=== PATIENT | female | born 1980 | race Caucasian/White ===

== ENCOUNTER 2016-06-18 13:48 | Emergency (ER) | payer MEDICAID ==
[~2016-06-18 13:48] MED LIST: ACET50TA PO; AMBI10TA OR; BISA10SU2; CALA180T; CALA180T OR; CARBITROL; CIPR500T19 OR; DEPA250T32 PO; DIAMOX; DILA2TAB; FLAG500T OR; FLUO10TA2; FLUO10TA2 OR; GLYB25TA PO; IMIT6INJ; IMIT6INJ SC; IMIT6KIT2 SC; MAGNESIUM OXIDE; MILKSUS OR; PERCOCET PO; PRIL20CA; PROV200T5; PROZ10CA; QUET30TA OR; RIBO100C; SENN8.6T14; SENO8.6T5; TEGRETOL; TEGRETOL XR; TOPA50TA7 PO; TOPI50TA OR; TRAZO50TA PO; VERA180T9 OR; VERA18TASA PO; VIST25CA PO; VITA100T; ZOLO100T PO; ZOLPIDEM TARTRATE; [UNRECOGNIZED DRUG - OTHER]
[2016-06-18] MEDS ORDERED: diphenhydrAMINE INJ 50MG/ML VIAL (J1200) As Ordered ONE (15:11)
[2016-06-18] MEDS ORDERED: ONDANSETRON 4MG/2ML VIAL (J2405) As Ordered ONE (15:11)
[2016-06-18] MEDS ORDERED: MORPHINE 2 MG/ML 1ML SYRINGE As Ordered ONE ×2 (15:11→16:05)
[2016-06-18] MEDS ORDERED: KETOROLAC 30 MG/ML VIAL (J1885) As Ordered ONE (15:11)
--- NOTE | 2016-06-18 16:48 | EDDOCDS ---
Nurse's Notes [facility] Name: Dunia Rodriges Age: 35 yrs Sex: Female : 1980 Arrival Date: 06/18/2016 Time: 13:48 Bed TR1 Private MD: LIGIA HAUSER Diagnosis: Migraine without aura, not intractable Presentation: 06/18 14:00 Presenting complaint: Patient states: migraine for 3 days that i cant rid of with my srm imitrex. no other symptoms. This patient has no additional risk factors. Adult Sepsis Screening: The patient does not have new or worsening altered mentation. Patient's respiratory rate is less than 22. Systolic blood pressure is greater than 100. Patient has a qSOFA score of 0- Negative Sepsis Screen. Suicide/Homicide risk assessment- the patient denies having any suicidal and/or homicidal ideations and does not present with any other emotional, behavioral or mental health complaints. Status: Patient is not a nutritional services host or dependent. Transition of care: patient was not received from another setting of care. 14:00 Acuity: TONY Level 4 [facility] 14:00 Method Of Arrival: Walkin/Carried/Asstd [facility] Triage Assessment: 14:02 Headache History: This headache is like all previous headaches. General: Appears in no srm apparent distress, Behavior is appropriate for age, cooperative. Pain: Pain currently is 10 out of 10 on a pain scale. Pain began 2-3 days ago Also complains of no other associated symptoms. HIV screening NA for this visit Offered previously. The patient is triaged at the bedside. See Assessment in Nurses Notes section of ED record. Neurological: No deficits noted. 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 Depakote 250 mg Oral TbEC once daily 2. Imitrex 6 mg/0.5 mL Sub-Q pnij as needed (Last dose: 06/17/2016) 3. Seroquel 50 mg Oral tab 1 tab daily 4. Topamax 25 mg Oral tab 2 times per day 5. Ventolin Rotahaler/Rotacaps Inhl 200 mcg four times a day 6. verapamil 180 mg Oral TbER once daily 7. Zoloft 25 mg oral tab once daily - PMHx: Migraine Headaches; Depression; - PSHx: Cholecystectomy; right ankle surgery; - Social history: Smoking status: Patient states was never smoker of tobacco. No barriers to communication noted, The patient speaks fluent Croatian, Speaks appropriately for age. - Family history: Not pertinent. - : The pt / caregiver states he / she is not on anticoagulants. Home medication list is obtained from the patient. - Exposure Risk Screening:: None identified. Screenin:40 Screening information is obtained from the patient. Fall risk: No risks identified. kc3 Assistance ADL's: requires no assistance with activities of daily living. Abuse/DV Screen: The patient / caregiver reports he/she is: not in a situation that causes fear, pain or injury. Nutritional screening: No deficits noted. Advance Directives: Currently, there is no health care proxy. home support is adequate. Assessment: 14:42 General: pt states usual headache, unrelieved by Imitrex. Pain: Location: head. ttb Neurological: Level of Consciousness is awake, alert, Gait is steady, Speech is normal, Facial symmetry appears normal. Neurological: Reports headache photophobia. Cardiovascular: Chest pain is denied. Respiratory: No deficits noted. Airway is patent Denies cough, shortness of breath. Derm: Skin is normal. 15:16 Adult Sepsis Screening: The patient does not have new or worsening altered mentation. dsf Patient's respiratory rate is less than 22. Systolic blood pressure is greater than 100. Patient has a qSOFA score of 0- Negative Sepsis Screen. General: Appears in no apparent distress, uncomfortable, Behavior is appropriate for age, cooperative. Pain: Location: right catholic and left catholic Pain currently is 10 out of 10 on a pain scale. Quality of pain is described as sharp. Neurological: Level of Consciousness is awake, alert. Cardiovascular: Capillary refill < 3 seconds. Respiratory: Airway is patent Respiratory effort is even, unlabored, Respiratory pattern is regular, symmetrical. Derm: Skin is pink, warm & dry. 16:00 General: Appears in no apparent distress, comfortable. Pain: Location: face. kc3 Neurological: Level of Consciousness is awake, alert, obeys commands. Respiratory: No deficits noted. Derm: No deficits noted. 16:39 General: Appears in no apparent distress, comfortable, Behavior is appropriate for age, kc3 cooperative. Pain: Location: face. Neurological: Level of Consciousness is awake, alert, obeys commands. Cardiovascular: Capillary refill < 3 seconds. Respiratory: Respiratory effort is even, unlabored. Derm: Skin is pink, warm & dry. Vital Signs: 13:49 BP 156 / 76; Pulse 88; Resp 18 S; Temp 97.5; Pulse Ox 99% on R/A; Weight 136.08 kg (R); dd6 Height 5 ft. 7 in. (170.18 cm) (R); 16:12 BP 130 / 79; Pulse 75; Resp 18; Temp 97.9(O); Pulse Ox 100% on R/A; Pain 6/10; kc3 16:38 BP 138 / 86; Pulse 80; Resp 18; Temp 97.7(O); Pulse Ox 99% on R/A; kc3 16:39 BP 138 / 86; Pulse 80; Resp 18; Pulse Ox 99% on R/A; Pain 0/10; kc3 13:49 Body Mass Index 46.99 (136.08 kg, 170.18 cm) dd6 Vitals: 13:49 Log In Time: June 18, 2016 at 13:47. dd6 ED Course: 13:49 Patient visited by Juan Carlos Moctezuma PCA. dd6 13:49 LIGIA HAUSER is Private Physician. dd6 13:49 Patient moved to Waiting dd6 13:51 Patient moved to Pre RCE dd6 14:01 Triage Initiated srm 14:41 Patient moved to Triage 1 ttb 14:42 Esther Scott PA-C is [facility]. dt4 14:42 Parisa King MD is Attending Physician. dt4 14:42 Patient visited by Esther Scott PA-C. dt4 14:43 Patient visited by Denisse Woods RN. ttb 15:02 Patient moved to I6 srm 15:03 [facility] Payment Agreement was scanned into [employer] and attached to record. pm4 15:17 Patient visited by Linda Schuster RN. dsf 15:21 Inserted saline lock: 20 gauge in right antecubital area The patient tolerated the mlb1 procedure well. 16:02 Patient visited by Esther Scott PA-C. dt4 16:30 Patient visited by Esther Scott PA-C. dt4 16:41 The patient / caregiver is instructed regarding the plan of care and ED course. kc3 16:41 Discontinued IV lock intact, bleeding controlled, pressure dressing applied, No kc3 redness/swelling at site. No procedures done that require assistance. 16:44 Patient moved to [address] Administered Medications: 15:29 Drug: diphenhydrAMINE 25 mg [diphenhydramine 50 mg/mL injection solution (0.5 mL)] kc3 Route: IVP; Site: right antecubital; 16:14 Follow up: Response: No Adverse Reaction kc3 15:29 Drug: morphine 2 mg [morphine 2 mg/mL intravenous cartridge (1 mL)] Route: IVP; Site: kc3 right antecubital; 16:13 Follow up: Response: No Adverse Reaction kc3 15:29 Drug: ketorolac 30 mg [ketorolac 30 mg/mL (1 mL) injection solution (1 mL)] Route: IVP; kc3 Site: right antecubital; 16:13 Follow up: Response: No Adverse Reaction kc3 15:29 Drug: Ondansetron 4 mg [ondansetron HCl 2 mg/mL intravenous solution (2 mL)] Route: kc3 IVP; Site: right antecubital; 16:13 Follow up: Response: No Adverse Reaction kc3 16:13 Drug: morphine 2 mg [morphine 2 mg/mL intravenous cartridge (1 mL)] Route: IVP; Site: kc3 right antecubital; 16:39 Follow up: BP 138 / 86; Pulse 80 bpm; Resp 18 bpm; Pulse Ox 99% RA; Pain 0/10 Adult kc3 Order Results: There are currently no results for this order. Outcome: 16:31 Discharge ordered by Provider. dt4 16:41 Discharge Assessment: Patient awake, alert and oriented x 3. No cognitive and/or kc3 functional deficits noted. Patient verbalized understanding of disposition instructions. patient administered narcotics - yes. Pt provided with safe discharge. The following High Risk Discharge criteria are identified: None. Discharged to home. Condition: stable. Discharge instructions given to patient, Instructed on discharge instructions, follow up and referral plans. Demonstrated understanding of instructions, Pt was receptive of discharge instructions/ teaching. No special radiology studies were completed. Property :Personal belongings accompany Pt. 16:46 Patient left the ED. kc3 Signatures: Madeleine Cha RN RN Leandro Thompson, RN RN mlb1 Juan Carlos Moctezuma, WAREHOUSE PRODUCTION WORKER WAREHOUSE PRODUCTION WORKER dd6 Linda Schuster,RN RN Denisse Whittaker, RN RN Esther Chavez, NITO PACatalina dt4 Julia Gurrola,RN RN kc3 Jose Antonio Lee, Reg Reg pm4 MTDD
--- NOTE | 2016-06-18 16:48 | EDDOCDS ---
Physician Documentation [facility] Name: Dunia Rodriges Age: 35 yrs Sex: Female : 1980 Arrival Date: 06/18/2016 Time: 13:48 Bed TR1 Private MD: LIGIA HAUSER Disposition: 06/18/16 16:31 Discharged to Home/Self Care. Impression: Migraine without aura, not intractable. - Condition is Stable. - Discharge Instructions: Migraine Headache. - Medication Reconciliation, Local Pharmacy Hours form. - Follow up: Emergency Department; When: As needed; Reason: Worsening of conditions. Follow up: Private Physician; When: 2 - 3 days; Reason: Wound/Symptom Recheck, Recheck today's complaints, Continuance of care. - Problem is new. - Symptoms have improved. Historical: - Allergies: Aspirin (Rash); - Home Meds: 1. Depakote 250 mg Oral TbEC once daily 2. Imitrex 6 mg/0.5 mL Sub-Q pnij as needed (Last dose: 06/17/2016) 3. Seroquel 50 mg Oral tab 1 tab daily 4. Topamax 25 mg Oral tab 2 times per day 5. Ventolin Rotahaler/Rotacaps Inhl 200 mcg four times a day 6. verapamil 180 mg Oral TbER once daily 7. Zoloft 25 mg oral tab once daily - PMHx: Migraine Headaches; Depression; - PSHx: Cholecystectomy; right ankle surgery; - Social history: Smoking status: Patient states was never smoker of tobacco. No barriers to communication noted, The patient speaks fluent Tuvaluan, Speaks appropriately for age. - Family history: Not pertinent. - : The pt / caregiver states he / she is not on anticoagulants. Home medication list is obtained from the patient. - Exposure Risk Screening:: None identified. 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 7 in. (170.18 cm) (R); 16:12 BP 130 / 79; Pulse 75; Resp 18; Temp 97.9(O); Pulse Ox 100% on R/A; Pain 6/10; kc3 16:38 BP 138 / 86; Pulse 80; Resp 18; Temp 97.7(O); Pulse Ox 99% on R/A; kc3 16:39 BP 138 / 86; Pulse 80; Resp 18; Pulse Ox 99% on R/A; Pain 0/10; kc3 13:49 Body Mass Index 46.99 (136.08 kg, 170.18 cm) dd6 MDM: 14:55 Financial registration complete. pm4 15:03 [facility] Payment Agreement was scanned into [employer] and attached to record. pm4 15:03 IV Saline Lock ordered. dt4 15:03 diphenhydrAMINE 25 mg IVP once ordered. dt4 15:04 morphine 2 mg IVP once ordered. dt4 15:04 ketorolac 30 mg IVP once ordered. dt4 15:04 Ondansetron 4 mg IVP once ordered. dt4 16:03 morphine 2 mg IVP once ordered. dt4 Administered Medications: 15:29 Drug: diphenhydrAMINE 25 mg [diphenhydramine 50 mg/mL injection solution (0.5 mL)] kc3 Route: IVP; Site: right antecubital; 16:14 Follow up: Response: No Adverse Reaction kc3 15:29 Drug: morphine 2 mg [morphine 2 mg/mL intravenous cartridge (1 mL)] Route: IVP; Site: kc3 right antecubital; 16:13 Follow up: Response: No Adverse Reaction kc3 15:29 Drug: ketorolac 30 mg [ketorolac 30 mg/mL (1 mL) injection solution (1 mL)] Route: IVP; kc3 Site: right antecubital; 16:13 Follow up: Response: No Adverse Reaction kc3 15:29 Drug: Ondansetron 4 mg [ondansetron HCl 2 mg/mL intravenous solution (2 mL)] Route: kc3 IVP; Site: right antecubital; 16:13 Follow up: Response: No Adverse Reaction kc3 16:13 Drug: morphine 2 mg [morphine 2 mg/mL intravenous cartridge (1 mL)] Route: IVP; Site: kc3 right antecubital; 16:39 Follow up: BP 138 / 86; Pulse 80 bpm; Resp 18 bpm; Pulse Ox 99% RA; Pain 0/10 Adult kc3 Signatures: Starla, Madeleine, RN RN srm Denisse Woods RN RN ttb Esther Scott PA-C PAChristianoC dt4 Julia Gurrola RN RN kc3 Jose Antonio Lee, Reg Reg pm4 The chart was reviewed and I authenticate all verbal orders and agree with the evaluation and treatment provided.Attachments: 15:03 [facility] Payment Agreement pm4 MTDD
--- NOTE | 2016-06-20 17:47 | EDDOCDS ---
Physician Documentation [facility] Name: Dunia Rodriges Age: 35 yrs Sex: Female : 1980 Arrival Date: 06/18/2016 Time: 13:48 Bed TR1 Private MD: LIGIA HAUSER Disposition: 06/18/16 16:31 Discharged to Home/Self Care. Impression: Migraine without aura, not intractable. - Condition is Stable. - Discharge Instructions: Migraine Headache. - Medication Reconciliation, Local Pharmacy Hours form. - Follow up: Emergency Department; When: As needed; Reason: Worsening of conditions. Follow up: Private Physician; When: 2 - 3 days; Reason: Wound/Symptom Recheck, Recheck today's complaints, Continuance of care. - Problem is new. - Symptoms have improved. Historical: - Allergies: Aspirin (Rash); - Home Meds: 1. Depakote 250 mg Oral TbEC once daily 2. Imitrex 6 mg/0.5 mL Sub-Q pnij as needed (Last dose: 06/17/2016) 3. Seroquel 50 mg Oral tab 1 tab daily 4. Topamax 25 mg Oral tab 2 times per day 5. Ventolin Rotahaler/Rotacaps Inhl 200 mcg four times a day 6. verapamil 180 mg Oral TbER once daily 7. Zoloft 25 mg oral tab once daily - PMHx: Migraine Headaches; Depression; - PSHx: Cholecystectomy; right ankle surgery; - Social history: Smoking status: Patient states was never smoker of tobacco. No barriers to communication noted, The patient speaks fluent Montserratian, Speaks appropriately for age. - Family history: Not pertinent. - : The pt / caregiver states he / she is not on anticoagulants. Home medication list is obtained from the patient. - Exposure Risk Screening:: None identified. 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 7 in. (170.18 cm) (R); 16:12 BP 130 / 79; Pulse 75; Resp 18; Temp 97.9(O); Pulse Ox 100% on R/A; Pain 6/10; kc3 16:38 BP 138 / 86; Pulse 80; Resp 18; Temp 97.7(O); Pulse Ox 99% on R/A; kc3 16:39 BP 138 / 86; Pulse 80; Resp 18; Pulse Ox 99% on R/A; Pain 0/10; kc3 13:49 Body Mass Index 46.99 (136.08 kg, 170.18 cm) dd6 MDM: 14:55 Financial registration complete. pm4 15:03 [facility] Payment Agreement was scanned into [employer] and attached to record. pm4 15:03 IV Saline Lock ordered. dt4 15:03 diphenhydrAMINE 25 mg IVP once ordered. dt4 15:04 morphine 2 mg IVP once ordered. dt4 15:04 ketorolac 30 mg IVP once ordered. dt4 15:04 Ondansetron 4 mg IVP once ordered. dt4 16:03 morphine 2 mg IVP once ordered. dt4 01 08:33 T-Sheet-- Draft Copy was scanned into [employer] and attached to record. gb Administered Medications: 06/18 15:29 Drug: diphenhydrAMINE 25 mg [diphenhydramine 50 mg/mL injection solution (0.5 mL)] kc3 Route: IVP; Site: right antecubital; 16:14 Follow up: Response: No Adverse Reaction kc3 15:29 Drug: morphine 2 mg [morphine 2 mg/mL intravenous cartridge (1 mL)] Route: IVP; Site: kc3 right antecubital; 16:13 Follow up: Response: No Adverse Reaction kc3 15:29 Drug: ketorolac 30 mg [ketorolac 30 mg/mL (1 mL) injection solution (1 mL)] Route: IVP; kc3 Site: right antecubital; 16:13 Follow up: Response: No Adverse Reaction kc3 15:29 Drug: Ondansetron 4 mg [ondansetron HCl 2 mg/mL intravenous solution (2 mL)] Route: kc3 IVP; Site: right antecubital; 16:13 Follow up: Response: No Adverse Reaction kc3 16:13 Drug: morphine 2 mg [morphine 2 mg/mL intravenous cartridge (1 mL)] Route: IVP; Site: kc3 right antecubital; 16:39 Follow up: BP 138 / 86; Pulse 80 bpm; Resp 18 bpm; Pulse Ox 99% RA; Pain 0/10 Adult kc3 Signatures: Madeleine Cha, RN RN srm Josie Domínguez, Reg Reg gb Denisse Woods RN RN ttb Esther Scott, NITO PACatalina dt4 Julia Gurrola RN RN kc3 Jose Antonio Lee, Reg Reg pm4 The chart was reviewed and I authenticate all verbal orders and agree with the evaluation and treatment provided.Attachments: 15:03 [facility] Payment Agreement pm4 06/20 08:33 T-Sheet-- Draft Copy gb Chart Complete MTDD
--- NOTE | 2016-06-20 17:47 | EDDOCDS ---
Physician Documentation [facility] Name: Dunia Rodriges Age: 35 yrs Sex: Female : 1980 Arrival Date: 06/18/2016 Time: 13:48 Bed TR1 Private MD: LIGIA HAUSER Disposition: 06/18/16 16:31 Discharged to Home/Self Care. Impression: Migraine without aura, not intractable. - Condition is Stable. - Discharge Instructions: Migraine Headache. - Medication Reconciliation, Local Pharmacy Hours form. - Follow up: Emergency Department; When: As needed; Reason: Worsening of conditions. Follow up: Private Physician; When: 2 - 3 days; Reason: Wound/Symptom Recheck, Recheck today's complaints, Continuance of care. - Problem is new. - Symptoms have improved. Historical: - Allergies: Aspirin (Rash); - Home Meds: 1. Depakote 250 mg Oral TbEC once daily 2. Imitrex 6 mg/0.5 mL Sub-Q pnij as needed (Last dose: 06/17/2016) 3. Seroquel 50 mg Oral tab 1 tab daily 4. Topamax 25 mg Oral tab 2 times per day 5. Ventolin Rotahaler/Rotacaps Inhl 200 mcg four times a day 6. verapamil 180 mg Oral TbER once daily 7. Zoloft 25 mg oral tab once daily - PMHx: Migraine Headaches; Depression; - PSHx: Cholecystectomy; right ankle surgery; - Social history: Smoking status: Patient states was never smoker of tobacco. No barriers to communication noted, The patient speaks fluent Sri Lankan, Speaks appropriately for age. - Family history: Not pertinent. - : The pt / caregiver states he / she is not on anticoagulants. Home medication list is obtained from the patient. - Exposure Risk Screening:: None identified. 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 7 in. (170.18 cm) (R); 16:12 BP 130 / 79; Pulse 75; Resp 18; Temp 97.9(O); Pulse Ox 100% on R/A; Pain 6/10; kc3 16:38 BP 138 / 86; Pulse 80; Resp 18; Temp 97.7(O); Pulse Ox 99% on R/A; kc3 16:39 BP 138 / 86; Pulse 80; Resp 18; Pulse Ox 99% on R/A; Pain 0/10; kc3 13:49 Body Mass Index 46.99 (136.08 kg, 170.18 cm) dd6 MDM: 14:55 Financial registration complete. pm4 15:03 [facility] Payment Agreement was scanned into [employer] and attached to record. pm4 15:03 IV Saline Lock ordered. dt4 15:03 diphenhydrAMINE 25 mg IVP once ordered. dt4 15:04 morphine 2 mg IVP once ordered. dt4 15:04 ketorolac 30 mg IVP once ordered. dt4 15:04 Ondansetron 4 mg IVP once ordered. dt4 16:03 morphine 2 mg IVP once ordered. dt4 01 08:33 T-Sheet-- Draft Copy was scanned into [employer] and attached to record. gb Administered Medications: 06/18 15:29 Drug: diphenhydrAMINE 25 mg [diphenhydramine 50 mg/mL injection solution (0.5 mL)] kc3 Route: IVP; Site: right antecubital; 16:14 Follow up: Response: No Adverse Reaction kc3 15:29 Drug: morphine 2 mg [morphine 2 mg/mL intravenous cartridge (1 mL)] Route: IVP; Site: kc3 right antecubital; 16:13 Follow up: Response: No Adverse Reaction kc3 15:29 Drug: ketorolac 30 mg [ketorolac 30 mg/mL (1 mL) injection solution (1 mL)] Route: IVP; kc3 Site: right antecubital; 16:13 Follow up: Response: No Adverse Reaction kc3 15:29 Drug: Ondansetron 4 mg [ondansetron HCl 2 mg/mL intravenous solution (2 mL)] Route: kc3 IVP; Site: right antecubital; 16:13 Follow up: Response: No Adverse Reaction kc3 16:13 Drug: morphine 2 mg [morphine 2 mg/mL intravenous cartridge (1 mL)] Route: IVP; Site: kc3 right antecubital; 16:39 Follow up: BP 138 / 86; Pulse 80 bpm; Resp 18 bpm; Pulse Ox 99% RA; Pain 0/10 Adult kc3 Signatures: Madeleine Cha, RN RN srm Josie Domínguez, Reg Reg gb Denisse Woods RN RN ttb Esther Scott, NITO PACatalina dt4 Julia Gurrola RN RN kc3 Jose Antonio Lee, Reg Reg pm4 The chart was reviewed and I authenticate all verbal orders and agree with the evaluation and treatment provided.Attachments: 15:03 [facility] Payment Agreement pm4 06/20 08:33 T-Sheet-- Draft Copy gb Chart Complete MTDD
--- NOTE | 2016-06-20 17:47 | EDDOCDS ---
Nurse's Notes [facility] Name: Dunia Rodriges Age: 35 yrs Sex: Female : 1980 Arrival Date: 06/18/2016 Time: 13:48 Bed TR1 Private MD: LIGIA HAUSER Diagnosis: Migraine without aura, not intractable Presentation: 06/18 14:00 Presenting complaint: Patient states: migraine for 3 days that i cant rid of with my srm imitrex. no other symptoms. This patient has no additional risk factors. Adult Sepsis Screening: The patient does not have new or worsening altered mentation. Patient's respiratory rate is less than 22. Systolic blood pressure is greater than 100. Patient has a qSOFA score of 0- Negative Sepsis Screen. Suicide/Homicide risk assessment- the patient denies having any suicidal and/or homicidal ideations and does not present with any other emotional, behavioral or mental health complaints. Status: Patient is not a rehab services aide or dependent. Transition of care: patient was not received from another setting of care. 14:00 Acuity: TONY Level 4 [facility] 14:00 Method Of Arrival: Walkin/Carried/Asstd [facility] Triage Assessment: 14:02 Headache History: This headache is like all previous headaches. General: Appears in no srm apparent distress, Behavior is appropriate for age, cooperative. Pain: Pain currently is 10 out of 10 on a pain scale. Pain began 2-3 days ago Also complains of no other associated symptoms. HIV screening NA for this visit Offered previously. The patient is triaged at the bedside. See Assessment in Nurses Notes section of ED record. Neurological: No deficits noted. CHUTE TAPPER: 14:02 LMP 06/18/2016 srm Historical: - Allergies: Aspirin (Rash); - Home Meds: 1. Depakote 250 mg Oral TbEC once daily 2. Imitrex 6 mg/0.5 mL Sub-Q pnij as needed (Last dose: 06/17/2016) 3. Seroquel 50 mg Oral tab 1 tab daily 4. Topamax 25 mg Oral tab 2 times per day 5. Ventolin Rotahaler/Rotacaps Inhl 200 mcg four times a day 6. verapamil 180 mg Oral TbER once daily 7. Zoloft 25 mg oral tab once daily - PMHx: Migraine Headaches; Depression; - PSHx: Cholecystectomy; right ankle surgery; - Social history: Smoking status: Patient states was never smoker of tobacco. No barriers to communication noted, The patient speaks fluent Tajik, Speaks appropriately for age. - Family history: Not pertinent. - : The pt / caregiver states he / she is not on anticoagulants. Home medication list is obtained from the patient. - Exposure Risk Screening:: None identified. Screenin:40 Screening information is obtained from the patient. Fall risk: No risks identified. kc3 Assistance ADL's: requires no assistance with activities of daily living. Abuse/DV Screen: The patient / caregiver reports he/she is: not in a situation that causes fear, pain or injury. Nutritional screening: No deficits noted. Advance Directives: Currently, there is no health care proxy. home support is adequate. Assessment: 14:42 General: pt states usual headache, unrelieved by Imitrex. Pain: Location: head. ttb Neurological: Level of Consciousness is awake, alert, Gait is steady, Speech is normal, Facial symmetry appears normal. Neurological: Reports headache photophobia. Cardiovascular: Chest pain is denied. Respiratory: No deficits noted. Airway is patent Denies cough, shortness of breath. Derm: Skin is normal. 15:16 Adult Sepsis Screening: The patient does not have new or worsening altered mentation. dsf Patient's respiratory rate is less than 22. Systolic blood pressure is greater than 100. Patient has a qSOFA score of 0- Negative Sepsis Screen. General: Appears in no apparent distress, uncomfortable, Behavior is appropriate for age, cooperative. Pain: Location: right anabaptist and left anabaptist Pain currently is 10 out of 10 on a pain scale. Quality of pain is described as sharp. Neurological: Level of Consciousness is awake, alert. Cardiovascular: Capillary refill < 3 seconds. Respiratory: Airway is patent Respiratory effort is even, unlabored, Respiratory pattern is regular, symmetrical. Derm: Skin is pink, warm & dry. 16:00 General: Appears in no apparent distress, comfortable. Pain: Location: face. kc3 Neurological: Level of Consciousness is awake, alert, obeys commands. Respiratory: No deficits noted. Derm: No deficits noted. 16:39 General: Appears in no apparent distress, comfortable, Behavior is appropriate for age, kc3 cooperative. Pain: Location: face. Neurological: Level of Consciousness is awake, alert, obeys commands. Cardiovascular: Capillary refill < 3 seconds. Respiratory: Respiratory effort is even, unlabored. Derm: Skin is pink, warm & dry. Vital Signs: 13:49 BP 156 / 76; Pulse 88; Resp 18 S; Temp 97.5; Pulse Ox 99% on R/A; Weight 136.08 kg (R); dd6 Height 5 ft. 7 in. (170.18 cm) (R); 16:12 BP 130 / 79; Pulse 75; Resp 18; Temp 97.9(O); Pulse Ox 100% on R/A; Pain 6/10; kc3 16:38 BP 138 / 86; Pulse 80; Resp 18; Temp 97.7(O); Pulse Ox 99% on R/A; kc3 16:39 BP 138 / 86; Pulse 80; Resp 18; Pulse Ox 99% on R/A; Pain 0/10; kc3 13:49 Body Mass Index 46.99 (136.08 kg, 170.18 cm) dd6 Vitals: 13:49 Log In Time: June 18, 2016 at 13:47. dd6 ED Course: 13:49 Patient visited by Juan Carlos Moctezuma PCA. dd6 13:49 LIGIA HAUSER is Private Physician. dd6 13:49 Patient moved to Waiting dd6 13:51 Patient moved to Pre RCE dd6 14:01 Triage Initiated srm 14:41 Patient moved to Triage 1 ttb 14:42 Esther Scott PA-C is [facility]. dt4 14:42 Parisa King MD is Attending Physician. dt4 14:42 Patient visited by Esther Scott PA-C. dt4 14:43 Patient visited by Denisse Woods RN. ttb 15:02 Patient moved to I6 srm 15:03 [facility] Payment Agreement was scanned into [employer] and attached to record. pm4 15:17 Patient visited by Linda Schuster RN. dsf 15:21 Inserted saline lock: 20 gauge in right antecubital area The patient tolerated the mlb1 procedure well. 16:02 Patient visited by Esther Scott PA-C. dt4 16:30 Patient visited by Esther Scott PA-C. dt4 16:41 The patient / caregiver is instructed regarding the plan of care and ED course. kc3 16:41 Discontinued IV lock intact, bleeding controlled, pressure dressing applied, No kc3 redness/swelling at site. No procedures done that require assistance. 16:44 Patient moved to [address] 06/20 08:33 T-Sheet-- Draft Copy was scanned into [employer] and attached to record. gb Administered Medications: 06/18 15:29 Drug: diphenhydrAMINE 25 mg [diphenhydramine 50 mg/mL injection solution (0.5 mL)] kc3 Route: IVP; Site: right antecubital; 16:14 Follow up: Response: No Adverse Reaction kc3 15:29 Drug: morphine 2 mg [morphine 2 mg/mL intravenous cartridge (1 mL)] Route: IVP; Site: kc3 right antecubital; 16:13 Follow up: Response: No Adverse Reaction kc3 15:29 Drug: ketorolac 30 mg [ketorolac 30 mg/mL (1 mL) injection solution (1 mL)] Route: IVP; kc3 Site: right antecubital; 16:13 Follow up: Response: No Adverse Reaction kc3 15:29 Drug: Ondansetron 4 mg [ondansetron HCl 2 mg/mL intravenous solution (2 mL)] Route: kc3 IVP; Site: right antecubital; 16:13 Follow up: Response: No Adverse Reaction kc3 16:13 Drug: morphine 2 mg [morphine 2 mg/mL intravenous cartridge (1 mL)] Route: IVP; Site: kc3 right antecubital; 16:39 Follow up: BP 138 / 86; Pulse 80 bpm; Resp 18 bpm; Pulse Ox 99% RA; Pain 0/10 Adult kc3 Order Results: There are currently no results for this order. Outcome: 16:31 Discharge ordered by Provider. dt4 16:41 Discharge Assessment: Patient awake, alert and oriented x 3. No cognitive and/or kc3 functional deficits noted. Patient verbalized understanding of disposition instructions. patient administered narcotics - yes. Pt provided with safe discharge. The following High Risk Discharge criteria are identified: None. Discharged to home. Condition: stable. Discharge instructions given to patient, Instructed on discharge instructions, follow up and referral plans. Demonstrated understanding of instructions, Pt was receptive of discharge instructions/ teaching. No special radiology studies were completed. Property :Personal belongings accompany Pt. 16:46 Patient left the ED. kc3 Signatures: Madeleine Cha, RN RN srm Josie Domínguez, Reg Reg gb Leandro Whitney, RN RN mlb1 Juan Carlos Moctezuma, GIS ADMINISTRATOR GIS ADMINISTRATOR dd6 Linda Schuster,RN RN Denisse Whittaker, RN RN ttb Esther Scott, PA-C PA-C dt4 Julia Gurrola,RN RN kc3 Jose Antonio Lee, Reg Reg pm4 Chart Complete MTDD
== END 2016-06-18 16:46 | disposition home or self-care (01) ==
LOC: M ED 13:48
DX: G43.909 Migraine, unspecified, not intractable, without status migrainosus (principal); F32.9 Major depressive disorder, single episode, unspecified; Z79.899 Other long term (current) drug therapy; Z88.6 Allergy status to analgesic agent
CPT/HCPCS: 96374; 96375; 96376; 99283; J1200; J1885; J2405

== ENCOUNTER → 2016-07-30 | Outpatient (REF) | payer MEDICAID | LOC: M LAB REF 12:27 | PROVIDERS: ATTEND Physician Assistant | DX: J11.1 Influenza due to unidentified influenza virus with other respiratory manifestations (principal) ==

== ENCOUNTER 2016-10-17 09:16 | Emergency (ER) | payer MEDICAID ==
[~2016-10-17] VITALS: Ht 170.2 cm; Wt 136.1 kg
[2016-10-17] MEDS ORDERED: diphenhydrAMINE INJ 50MG/ML VIAL (J1200) IV ONE (10:45)
[2016-10-17] MEDS ORDERED: NS 1,000 ML IV ONE (10:45)
[2016-10-17] MEDS ORDERED: METOCLOPRAMIDE INJ 10MG/2ML VIAL (J2765) IV ONE (10:45)
[2016-10-17] MEDS ORDERED: KETOROLAC 30 MG/ML VIAL (J1885) IV ONE (10:45)
[2016-10-17 10:58] LABS: BASO % 0.3 % (0.0-1.0); EOS # 0.1 K/mm3 (0.0-0.50); LARGE UNSTAINED CELL # 0.1 K/mm3 (0.0-0.4); LARGE UNSTAINED CELL % 1.1 % (0.0-4.0); LYMPH # 1.7 K/mm3 (1.5-4.5); LYMPH % 25.3 % (24.0-44.0); MEAN CORPUSCULAR HEMOGLOBIN 27.5 pg (27.0-33.0); MEAN CORPUSCULAR HGB CONC 31.7 g/dl (32.0-36.5); MEAN CORPUSCULAR VOLUME 86.7 fl (80.0-96.0); MONO # 0.2 K/mm3 (0.0-0.8); MONO % 3.6 % (0.0-5.0); NEUTROPHILS # 4.4 K/mm3 (1.8-7.7); NEUTROPHILS % 68.6 % (36.0-66.0); PLATELET COUNT, AUTOMATED 228 k/mm3 (150-450); RED CELL DISTRIBUTION WIDTH 14.5 % (11.5-14.5); WHITE BLOOD COUNT 6.4 K/mm3 (4.0-10.0)
[2016-10-17 11:17] LABS: ANION GAP 8 MEQ/L (8-16); BLOOD UREA NITROGEN 15 MG/DL (7-18); CALCIUM LEVEL 8.6 MG/DL (8.5-10.1); CARBON DIOXIDE LEVEL 27 MEQ/L (21-32); CHLORIDE LEVEL 106 MEQ/L (98-107); CREATININE FOR GFR 0.79 MG/DL (0.55-1.02); GLOMERULAR FILTRATION RATE > 60.0 (>60); GLUCOSE, FASTING 103 MG/DL (70-105); POTASSIUM SERUM 4.1 MEQ/L (3.5-5.1); SODIUM LEVEL 141 MEQ/L (136-145)
[2016-10-17 11:27] LABS: ERYTHROCYTE SEDIMENTATION RATE 35 mm/hr (0-20)
[2016-10-17] MEDS ORDERED: MORPHINE 2 MG/ML 1ML SYRINGE IV ONE (11:30)
[2016-10-17] MEDS ORDERED: methylPREDNISolone INJ 40 MG/1 ML VIAL (J2920) IV ONE (11:30)
[2016-10-17] MEDS ORDERED: methylPREDNISolone INJ 125 MG/2 ML VIAL (J2930) As Ordered ONE (11:32)
[2016-10-17 12:00] VITALS: BP 130/67
== END 2016-10-17 12:08 | disposition home or self-care (01) ==
LOC: M ED 10:25
DX: G43.909 Migraine, unspecified, not intractable, without status migrainosus (principal)
CPT/HCPCS: 80048; 85025; 85652; 86140; 96374; 96375; 99282; J1200; J1885; J2765; J2930

== ENCOUNTER → 2016-10-22 | Outpatient (REF) | payer MEDICAID | LOC: M SFHCWAGY 14:29 | PROVIDERS: ATTEND Nurse Practitioner Women's Health | DX: Z12.4 Encounter for screening for malignant neoplasm of cervix (principal) ==

== ENCOUNTER 2017-02-02 10:39 | Emergency (ER) | payer MEDICAID ==
[~2017-02-02] VITALS: Ht 170.2 cm; Wt 155.1 kg
[2017-02-02 10:39] VITALS: BP 145/95
[~2017-02-02 10:39] MED LIST changes: -TOPA50TA7 PO; +TOPA50TA8 PO; +VERA180T53 PO; -VERA18TASA PO
== END 2017-02-02 11:08 | disposition left against medical advice (07) ==
LOC: M ED 11:05
DX: R51 Headache (principal); Z53.29 Procedure and treatment not carried out because of patient's decision for other reasons

== ENCOUNTER 2017-02-07 07:07 | Emergency (ER) | payer MEDICAID ==
[~2017-02-07] VITALS: Ht 170.2 cm; Wt 136.4 kg
[2017-02-07] MEDS ORDERED: IBUP-1022 PO (07:30)
[2017-02-07] MEDS ORDERED: diphenhydrAMINE INJ 50MG/ML VIAL (J1200) IV STA (07:44)
[2017-02-07] MEDS ORDERED: MORPHINE 4 MG/ML 1ML SYRINGE IV ONE ×2 (07:45→09:00)
[2017-02-07] MEDS ORDERED: KETOROLAC 30 MG/ML VIAL (J1885) IV ONE (07:45)
[2017-02-07] MEDS ORDERED: ONDANSETRON 4MG/2ML VIAL (J2405) IV ONE (07:45)
[2017-02-07] MEDS ORDERED: NS 1,000 ML IV ONE (07:45)
[2017-02-07] MEDS ORDERED: ZOFR4TAB3 PO (09:49)
[2017-02-07] MEDS ORDERED: NORCOTAB PO (09:49)
[2017-02-07 10:07] VITALS: BP 138/68
== END 2017-02-07 10:09 | disposition home or self-care (01) ==
LOC: M ED 07:07
DX: G43.909 Migraine, unspecified, not intractable, without status migrainosus (principal)
CPT/HCPCS: 96361; 96374; 96375; 96376; 99283; J1200; J1885; J2405

== ENCOUNTER 2017-04-29 05:54 | Emergency (ER) | payer MEDICAID ==
[~2017-04-29] VITALS: Ht 170.2 cm; Wt 136.4 kg
[~2017-04-29 05:54] MED LIST changes: +IBUP-1022 PO; +NORCOTAB PO; +ZOFR4TAB3 PO
[2017-04-29] MEDS ORDERED: diphenhydrAMINE INJ 50MG/ML VIAL (J1200) IV ONE (07:45)
[2017-04-29] MEDS ORDERED: KETOROLAC 30 MG/ML VIAL (J1885) IV ONE (07:45)
[2017-04-29] MEDS ORDERED: NS 1,000 ML IV ONE (07:45)
[2017-04-29] MEDS ORDERED: METOCLOPRAMIDE INJ 10MG/2ML VIAL (J2765) IV ONE (08:00)
[2017-04-29] MEDS ORDERED: MORPHINE 4 MG/ML 1ML SYRINGE IV PRN (08:30)
[2017-04-29 10:25] VITALS: BP 127/87
== END 2017-04-29 10:27 | disposition home or self-care (01) ==
LOC: M ED 05:54
DX: G43.909 Migraine, unspecified, not intractable, without status migrainosus (principal); M54.9 Dorsalgia, unspecified; Z79.899 Other long term (current) drug therapy; Z88.8 Allergy status to other drugs, medicaments and biological substances; Z91.018 Allergy to other foods
CPT/HCPCS: 96361; 96374; 96375; 99284; J1200; J1885; J2765

== ENCOUNTER 2017-07-04 20:55 | Emergency (ER) | payer MEDICAID ==
[2017-07-04 22:28] LABS: BASO % 0.6 % (0.0-1.0); EOS # 0.2 10^3/uL (0.0-0.50); HEMATOCRIT 37.5 % (36.0-47.0); HEMOGLOBIN 12.4 g/dl (12.0-16.0); IMMATURE GRANULOCYTE % 0.6 % (0-0); LYMPH # 2.2 10^3/uL (1.5-4.5); LYMPH % 31.9 % (24.0-44.0); MEAN CORPUSCULAR HEMOGLOBIN 29.1 pg (27.0-33.0); MEAN CORPUSCULAR HGB CONC 33.1 g/dl (32.0-36.5); MONO # 0.4 10^3/uL (0.0-0.8); MONO % 6.1 % (0.0-5.0); NEUTROPHILS % 57.8 % (36.0-66.0); PLATELET COUNT, AUTOMATED 215 10^3/uL (150-450); RED BLOOD COUNT 4.26 10^6/uL (4.00-5.40); RED CELL DISTRIBUTION WIDTH 14.1 % (11.5-14.5); WHITE BLOOD COUNT 6.9 10^3/uL (4.0-10.0)
[2017-07-04 22:39] LABS: INR 0.92; PARTIAL THROMBOPLASTIN TIME 28.7 SECONDS (26.8-37.9); PROTHROMBIN TIME 12.4 SECONDS (12.4-14.5)
[2017-07-04] MEDS: ACETAMINOPHEN 325 MG TAB PO (22:42)
[2017-07-04 22:48] LABS: CONTROL LINE HCG INT CTR LINE PRESENT; HCG, SERUM QUALITATIVE NEGATIVE (NEGATIVE)
[2017-07-04 22:52] LABS: ANION GAP 9 MEQ/L (8-16); BLOOD UREA NITROGEN 10 MG/DL (7-18); CALCIUM LEVEL 8.8 MG/DL (8.5-10.1); CARBON DIOXIDE LEVEL 25 MEQ/L (21-32); CHLORIDE LEVEL 107 MEQ/L (98-107); CREATININE FOR GFR 0.91 MG/DL (0.55-1.02); GLOMERULAR FILTRATION RATE > 60.0 (>60); GLUCOSE, FASTING 224 MG/DL (70-105); POTASSIUM SERUM 3.9 MEQ/L (3.5-5.1); SODIUM LEVEL 141 MEQ/L (136-145)
[2017-07-04] MEDS: IBUPROFEN 600 MG TAB PO (23:30)
[2017-07-04] MEDS ORDERED: ISOVUE-370 76% 100ML VIAL (Q9967) As Ordered (23:34)
== END 2017-07-05 00:37 | disposition home or self-care (01) ==
LOC: M ED 20:55
DX: M79.662 Pain in left lower leg (principal); R07.89 Other chest pain; F33.9 Major depressive disorder, recurrent, unspecified; M54.9 Dorsalgia, unspecified; G89.29 Other chronic pain; Z79.899 Other long term (current) drug therapy; Z88.8 Allergy status to other drugs, medicaments and biological substances; Z98.890 Other specified postprocedural states
CPT/HCPCS: Q9967

== ENCOUNTER 2017-07-29 10:58 | Emergency (ER) | payer MEDICAID ==
[2017-07-29] MEDS: IPRATROPIUM 0.5MG/ALBUTEROL 2.5MG INH SOL UD 3ML (DUONEB)(J7620) NEB (11:47)
[2017-07-29] MEDS: ACETAMINOPHEN 325 MG TAB PO (11:47)
== END 2017-07-29 12:44 | disposition home or self-care (01) ==
LOC: M ED 10:58
DX: J45.901 Unspecified asthma with (acute) exacerbation (principal); J20.9 Acute bronchitis, unspecified; K21.9 Gastro-esophageal reflux disease without esophagitis; G43.909 Migraine, unspecified, not intractable, without status migrainosus
CPT/HCPCS: 71046

== ENCOUNTER 2017-09-26 15:46 | Emergency (ER) | payer MEDICAID ==
[2017-09-26 16:14] LABS: KETONE, URINE AUTO RFX NEGATIVE (NEGATIVE); LEUKOCYTE ESTERASE UR AUTO RFX NEGATIVE (NEGATIVE); NITRITE, URINE AUTO RFX NEGATIVE (NEGATIVE); RBC, URINE AUTO RFX 1 /HPF (0-3); SPECIFIC GRAVITY UR AUTO RFX 1.011 (1.002-1.035); SQUAM EPITHELIAL CELL UR AURFX 1 /HPF (0-6); WBC, URINE AUTO RFX 1 /HPF (0-3)
[2017-09-26] MEDS: NS 1,000 ML IV (16:27)
[2017-09-26] MEDS: KETOROLAC 30 MG/ML VIAL (J1885) IV (16:27)
[2017-09-26] MEDS: ONDANSETRON 4MG/2ML VIAL (J2405) IV (16:27)
[2017-09-26 16:33] LABS: BASO % 0.6 % (0.0-1.0); CONTROL LINE UCG INT CTR LINE PRESENT; EOS # 0.1 10^3/uL (0.0-0.50); EOS % 0.9 % (0.0-3.0); HEMATOCRIT 40.3 % (36.0-47.0); HEMOGLOBIN 13.1 g/dl (12.0-15.5); IMMATURE GRANULOCYTE % 0.3 % (0-3.0); LYMPH % 28.7 % (24.0-44.0); MEAN CORPUSCULAR HEMOGLOBIN 28.2 pg (27.0-33.0); MEAN CORPUSCULAR HGB CONC 32.5 g/dl (32.0-36.5); MEAN CORPUSCULAR VOLUME 86.9 fl (80.0-96.0); MONO # 0.5 10^3/uL (0.0-0.8); NEUTROPHILS # 4.3 10^3/uL (1.8-7.7); NEUTROPHILS % 62.5 % (36.0-66.0); PLATELET COUNT, AUTOMATED 229 10^3/uL (150-450); RED BLOOD COUNT 4.64 10^6/uL (4.00-5.40); RED CELL DISTRIBUTION WIDTH 14.2 % (11.5-14.5); URINE PREG TEST NEGATIVE (NEGATIVE); WHITE BLOOD COUNT 6.9 10^3/uL (4.0-10.0)
[2017-09-26] MEDS: MORPHINE 4 MG/ML 1ML VIAL/SYRINGE (J2270) IV ×2 (16:58→19:32)
[2017-09-26 17:17] LABS: ALBUMIN 3.6 GM/DL (3.2-5.2); ALBUMIN/GLOBULIN RATIO 1.03 (1.00-1.93); ALKALINE PHOSPHATASE 80 U/L (45-117); ALT/SGPT 49 U/L (12-78); ANION GAP 7 MEQ/L (8-16); AST/SGOT 31 U/L (7-37); BILIRUBIN,DIRECT < 0.1 MG/DL (0.0-0.2); BILIRUBIN,TOTAL 0.3 MG/DL (0.2-1.0); BLOOD UREA NITROGEN 10 MG/DL (7-18); CALCIUM LEVEL 8.3 MG/DL (8.5-10.1); CARBON DIOXIDE LEVEL 24 MEQ/L (21-32); CHLORIDE LEVEL 108 MEQ/L (98-107); CREATININE FOR GFR 0.74 MG/DL (0.55-1.30); GLOMERULAR FILTRATION RATE > 60.0 (>60); GLUCOSE, FASTING 149 MG/DL (70-100); LIPASE 174 U/L (73-393); POTASSIUM SERUM 4.2 MEQ/L (3.5-5.1); SODIUM LEVEL 139 MEQ/L (136-145); TOTAL PROTEIN 7.1 GM/DL (6.4-8.2)
[2017-09-26] MEDS: HYDROmorphone HCL 1 MG/ML SYRINGE (J1170) IV (17:52)
== END 2017-09-26 19:49 | disposition home or self-care (01) ==
LOC: M ED 15:46
DX: R16.0 Hepatomegaly, not elsewhere classified (principal); N20.0 Calculus of kidney; K76.0 Fatty (change of) liver, not elsewhere classified; E11.9 Type 2 diabetes mellitus without complications; G43.909 Migraine, unspecified, not intractable, without status migrainosus; M54.9 Dorsalgia, unspecified; F32.9 Major depressive disorder, single episode, unspecified; K21.9 Gastro-esophageal reflux disease without esophagitis; Z87.442 Personal history of urinary calculi; Z79.84 Long term (current) use of oral hypoglycemic drugs; Z79.899 Other long term (current) drug therapy; Z88.6 Allergy status to analgesic agent; Z91.02 Food additives allergy status
CPT/HCPCS: J1170

== ENCOUNTER → 2017-09-28 | Outpatient (REF) | payer MEDICAID ==
[2017-09-28 13:22] LABS: BASO % 0.6 % (0.0-1.0); EOS # 0.1 10^3/uL (0.0-0.50); EOS % 0.7 % (0.0-3.0); HEMATOCRIT 40.8 % (36.0-47.0); HEMOGLOBIN 13.2 g/dl (12.0-15.5); IMMATURE GRANULOCYTE % 0.3 % (0-3.0); LYMPH # 1.7 10^3/uL (1.5-4.5); LYMPH % 24.3 % (24.0-44.0); MEAN CORPUSCULAR HEMOGLOBIN 27.8 pg (27.0-33.0); MEAN CORPUSCULAR HGB CONC 32.4 g/dl (32.0-36.5); MEAN CORPUSCULAR VOLUME 86.1 fl (80.0-96.0); MONO # 0.4 10^3/uL (0.0-0.8); MONO % 5.3 % (0.0-5.0); NEUTROPHILS # 4.8 10^3/uL (1.8-7.7); NEUTROPHILS % 68.8 % (36.0-66.0); PLATELET COUNT, AUTOMATED 248 10^3/uL (150-450); RED BLOOD COUNT 4.74 10^6/uL (4.00-5.40); RED CELL DISTRIBUTION WIDTH 14.2 % (11.5-14.5)
[2017-09-28 14:04] LABS: APPEARANCE, URINE HAZY (CLEAR); BACTERIA, URINE AUTO NEGATIVE (NEGATIVE); BILIRUBIN, URINE AUTO NEGATIVE (NEGATIVE); BLOOD, URINE BLOOD NEGATIVE (NEGATIVE); COLOR, URINE YELLOW (YELLOW); GLUCOSE, URINE (UA) AUTO NEGATIVE (NEGATIVE); KETONE, URINE AUTO NEGATIVE (NEGATIVE); LEUKOCYTE ESTERASE, URINE AUTO 1+ (NEGATIVE); MUCUS, URINE SMALL (NEGATIVE); NITRITE, URINE AUTO NEGATIVE (NEGATIVE); PROTEIN, URINE AUTO NEGATIVE (NEGATIVE); RBC, URINE AUTO 4 /HPF (0-3); SPECIFIC GRAVITY URINE AUTO 1.016 (1.002-1.035); SQUAMOUS EPITHELIAL CELL UR AU 2 /HPF (0-6); UROBILINOGEN, URINE AUTO 0.2 mg/dL (0.0-2.0); WBC, URINE AUTO 10 /HPF (0-3)
== END ==
LOC: M SFHCPLAZ 11:39
DX: R30.0 Dysuria (principal)

== ENCOUNTER 2017-10-07 17:35 | Emergency (ER) | payer MEDICAID ==
[2017-10-07] MEDS: HYDROmorphone HCL 1 MG/ML SYRINGE (J1170) IV ×2 (19:07→19:51)
[2017-10-07] MEDS: NS 1,000 ML IV (19:07)
[2017-10-07] MEDS: ONDANSETRON 4MG/2ML VIAL (J2405) IV (19:07)
[2017-10-07 19:18] LABS: BASO % 0.3 % (0.0-1.0); EOS # 0.1 10^3/uL (0.0-0.50); EOS % 0.8 % (0.0-3.0); HEMATOCRIT 40.8 % (36.0-47.0); HEMOGLOBIN 13.6 g/dl (12.0-15.5); IMMATURE GRANULOCYTE % 0.8 % (0-3.0); LYMPH # 1.8 10^3/uL (1.5-4.5); LYMPH % 22.8 % (24.0-44.0); MEAN CORPUSCULAR HEMOGLOBIN 28.3 pg (27.0-33.0); MEAN CORPUSCULAR HGB CONC 33.3 g/dl (32.0-36.5); MONO # 0.5 10^3/uL (0.0-0.8); MONO % 6.5 % (0.0-5.0); NEUTROPHILS # 5.5 10^3/uL (1.8-7.7); NEUTROPHILS % 68.8 % (36.0-66.0); PLATELET COUNT, AUTOMATED 224 10^3/uL (150-450); RED CELL DISTRIBUTION WIDTH 14.1 % (11.5-14.5)
[2017-10-07 19:24] LABS: KETONE, URINE AUTO RFX NEGATIVE (NEGATIVE); MUCUS, URINE RFX SMALL (NEGATIVE); NITRITE, URINE AUTO RFX NEGATIVE (NEGATIVE); RBC, URINE AUTO RFX 7 /HPF (0-3); SQUAM EPITHELIAL CELL UR AURFX 13 /HPF (0-6)
[2017-10-07] MEDS ORDERED: KETOROLAC 30 MG/ML VIAL (J1885) IV (19:30)
[2017-10-07 19:34] LABS: ANION GAP 9 MEQ/L (8-16); BLOOD UREA NITROGEN 12 MG/DL (7-18); CALCIUM LEVEL 8.8 MG/DL (8.5-10.1); CARBON DIOXIDE LEVEL 25 MEQ/L (21-32); CHLORIDE LEVEL 105 MEQ/L (98-107); CREATININE FOR GFR 0.92 MG/DL (0.55-1.30); GLOMERULAR FILTRATION RATE > 60.0 (>60); GLUCOSE, FASTING 173 MG/DL (70-100); POTASSIUM SERUM 3.6 MEQ/L (3.5-5.1); SODIUM LEVEL 139 MEQ/L (136-145)
[2017-10-07 19:39] LABS: LEUKOCYTE ESTERASE UR AUTO RFX 3+ (NEGATIVE); WBC, URINE AUTO RFX 11 /HPF (0-3)
[2017-10-07] MEDS: PROMETHAZINE INJ 25 MG/ML VIAL (J2550) IV (21:20)
[2017-10-07] MEDS: MORPHINE 4 MG/ML 1ML VIAL/SYRINGE (J2270) IV (21:45)
== END 2017-10-07 22:21 | disposition home or self-care (01) ==
LOC: M ED 17:35
DX: R10.9 Unspecified abdominal pain (principal); N23 Unspecified renal colic; Z79.84 Long term (current) use of oral hypoglycemic drugs; Z79.899 Other long term (current) drug therapy; Z88.6 Allergy status to analgesic agent; Z91.02 Food additives allergy status
CPT/HCPCS: J1170

== ENCOUNTER → 2017-10-12 | Outpatient (CLI) | payer MEDICAID ==
[2017-10-12 17:24] LABS: ANION GAP 8 MEQ/L (8-16); BLOOD UREA NITROGEN 11 MG/DL (7-18); CALCIUM LEVEL 9.1 MG/DL (8.5-10.1); CARBON DIOXIDE LEVEL 24 MEQ/L (21-32); CHLORIDE LEVEL 105 MEQ/L (98-107); CREATININE FOR GFR 0.81 MG/DL (0.55-1.30); GLOMERULAR FILTRATION RATE > 60.0 (>60); GLUCOSE, FASTING 126 MG/DL (70-100); POTASSIUM SERUM 4.4 MEQ/L (3.5-5.1); SODIUM LEVEL 137 MEQ/L (136-145)
[2017-10-12 17:27] LABS: HEMATOCRIT 42.5 % (36.0-47.0); HEMOGLOBIN 13.9 g/dl (12.0-15.5); MEAN CORPUSCULAR HEMOGLOBIN 28.8 pg (27.0-33.0); MEAN CORPUSCULAR HGB CONC 32.7 g/dl (32.0-36.5); PLATELET COUNT, AUTOMATED 282 10^3/uL (150-450); RED BLOOD COUNT 4.83 10^6/uL (4.00-5.40); RED CELL DISTRIBUTION WIDTH 14.5 % (11.5-14.5)
[2017-10-12 17:32] LABS: INR 0.98; PROTHROMBIN TIME 13.1 SECONDS (12.4-14.5)
[2017-10-13 12:11] LABS: AMORPHOUS SEDIMENT MODERATE (NEGATIVE); APPEARANCE, URINE TURBID (CLEAR); BACTERIA, URINE AUTO NEGATIVE (NEGATIVE); BILIRUBIN, URINE AUTO NEGATIVE (NEGATIVE); BLOOD, URINE BLOOD 2+ (NEGATIVE); CALCIUM OXALATE CRYSTALS LARGE; COLOR, URINE YELLOW (YELLOW); GLUCOSE, URINE (UA) AUTO NEGATIVE (NEGATIVE); KETONE, URINE AUTO NEGATIVE (NEGATIVE); LEUKOCYTE ESTERASE, URINE AUTO 2+ (NEGATIVE); MUCUS, URINE LARGE (NEGATIVE); NITRITE, URINE AUTO NEGATIVE (NEGATIVE); PROTEIN, URINE AUTO NEGATIVE (NEGATIVE); RBC, URINE AUTO 0 /HPF (0-3); SPECIFIC GRAVITY URINE AUTO 1.028 (1.002-1.035); SQUAMOUS EPITHELIAL CELL UR AU 0 /HPF (0-6); UROBILINOGEN, URINE AUTO 0.2 mg/dL (0.0-2.0); WBC, URINE AUTO 0 /HPF (0-3)
== END ==
LOC: M SMT 11:43
DX: N20.0 Calculus of kidney (principal)
CPT/HCPCS: 81001

== ENCOUNTER → 2017-10-16 | Outpatient (REF) | payer MEDICAID ==
[2017-10-16 14:22] LABS: APPEARANCE, URINE HAZY (CLEAR); BACTERIA, URINE AUTO NEGATIVE (NEGATIVE); BILIRUBIN, URINE AUTO NEGATIVE (NEGATIVE); BLOOD, URINE BLOOD 3+ (NEGATIVE); CALCIUM OXALATE CRYSTALS MODERATE; COLOR, URINE YELLOW (YELLOW); GLUCOSE, URINE (UA) AUTO NEGATIVE (NEGATIVE); KETONE, URINE AUTO NEGATIVE (NEGATIVE); LEUKOCYTE ESTERASE, URINE AUTO NEGATIVE (NEGATIVE); MUCUS, URINE SMALL (NEGATIVE); NITRITE, URINE AUTO NEGATIVE (NEGATIVE); PROTEIN, URINE AUTO NEGATIVE (NEGATIVE); RBC, URINE AUTO TNTC /HPF (0-3); SPECIFIC GRAVITY URINE AUTO 1.021 (1.002-1.035); SQUAMOUS EPITHELIAL CELL UR AU 1 /HPF (0-6); UROBILINOGEN, URINE AUTO 0.2 mg/dL (0.0-2.0); WBC, URINE AUTO 3 /HPF (0-3)
== END ==
LOC: M SMT 14:01
DX: N20.0 Calculus of kidney (principal)

== ENCOUNTER → 2017-10-20 | Outpatient (REF) | payer MEDICAID ==
[2017-10-20 16:37] LABS: ESTIMATED AVERAGE GLUCOSE 163 MG/DL (60-110); HEMOGLOBIN A1c 7.3 %
[2017-10-20 16:38] LABS: ALBUMIN 3.9 GM/DL (3.2-5.2); ALBUMIN/GLOBULIN RATIO 1.03 (1.00-1.93); ALKALINE PHOSPHATASE 86 U/L (45-117); ALT/SGPT 46 U/L (12-78); AST/SGOT 25 U/L (7-37); BILIRUBIN,DIRECT < 0.1 MG/DL (0.0-0.2); BILIRUBIN,TOTAL 0.2 MG/DL (0.2-1.0); TOTAL PROTEIN 7.7 GM/DL (6.4-8.2)
[2017-10-20 16:48] LABS: MALB URINE SIEMENS 7.7 MG/L; MAU/CREAT RATIO 5.8 MCG/MG (0.0-30.0)
== END ==
LOC: M SFHCPLAZ 14:06
DX: E11.9 Type 2 diabetes mellitus without complications (principal); K75.81 Nonalcoholic steatohepatitis (NASH)

== ENCOUNTER 2017-11-21 07:57 | Emergency (ER) | payer MEDICAID ==
[2017-11-21] MEDS: diphenhydrAMINE INJ 50MG/ML VIAL (J1200) IV (09:12)
[2017-11-21] MEDS: NS 500 ML IV ×2 (09:12→10:45)
[2017-11-21] MEDS: KETOROLAC 30 MG/ML VIAL (J1885) IV (09:13)
[2017-11-21] MEDS: TRIMETHOBENZAMIDE HCL INJ 200 MG/2 ML VIAL (J3250) IM (09:13)
[2017-11-21] MEDS: MORPHINE 4 MG/ML 1ML VIAL/SYRINGE (J2270) IV (10:00)
[2017-11-21] MEDS: ONDANSETRON 4MG/2ML VIAL (J2405) IV (10:00)
[2017-11-21] MEDS: methylPREDNISolone INJ 125 MG/2 ML VIAL (J2930) IV (10:45)
== END 2017-11-21 11:19 | disposition home or self-care (01) ==
LOC: M ED 07:57
DX: G43.909 Migraine, unspecified, not intractable, without status migrainosus (principal); E66.01 Morbid (severe) obesity due to excess calories; K21.9 Gastro-esophageal reflux disease without esophagitis; F33.9 Major depressive disorder, recurrent, unspecified; F41.9 Anxiety disorder, unspecified; F42.9 Obsessive-compulsive disorder, unspecified
CPT/HCPCS: J2270

== ENCOUNTER 2017-12-05 06:44 | Emergency (ER) | payer MEDICAID ==
[2017-12-05] MEDS: IBUPROFEN 600 MG TAB PO (07:29)
[2017-12-05] MEDS: IPRATROPIUM 0.5MG/ALBUTEROL 2.5MG INH SOL UD 3ML (DUONEB)(J7620) NEB (07:31)
[2017-12-05] MEDS ORDERED: LIDOCAINE 1% MDV 20ML VIAL As Ordered (07:53)
[2017-12-05] MEDS ORDERED: cefTRIAXone SOD 1 GM VIAL (J0696) As Ordered (07:55)
[2017-12-05] MEDS: cefTRIAXone SOD 1 GM VIAL (J0696) IM (08:00)
[2017-12-05] MEDS: LIDOCAINE 1% MDV 20ML VIAL IM (08:00)
== END 2017-12-05 08:15 | disposition home or self-care (01) ==
LOC: M ED 06:44
DX: J18.9 Pneumonia, unspecified organism (principal); E11.9 Type 2 diabetes mellitus without complications; K21.9 Gastro-esophageal reflux disease without esophagitis; M54.30 Sciatica, unspecified side; G43.909 Migraine, unspecified, not intractable, without status migrainosus; F41.9 Anxiety disorder, unspecified; F32.9 Major depressive disorder, single episode, unspecified; F42.9 Obsessive-compulsive disorder, unspecified; Z79.84 Long term (current) use of oral hypoglycemic drugs; Z79.899 Other long term (current) drug therapy; Z88.6 Allergy status to analgesic agent; Z91.02 Food additives allergy status
CPT/HCPCS: J0696

== ENCOUNTER 2017-12-05 16:29 | Inpatient (IN) | payer MEDICAID ==
[2017-12-05] MEDS: IPRATROPIUM 0.5MG/ALBUTEROL 2.5MG INH SOL UD 3ML (DUONEB)(J7620) NEB ×3 (17:13→20:53)
[2017-12-05 18:04] LABS: BASO % 0.2 % (0.0-1.0); EOS % 0.9 % (0.0-3.0); HEMATOCRIT 35.5 % (36.0-47.0); HEMOGLOBIN 11.7 g/dl (12.0-15.5); IMMATURE GRANULOCYTE % 0.2 % (0-3.0); LYMPH # 0.9 10^3/uL (1.5-4.5); LYMPH % 18.5 % (24.0-44.0); MEAN CORPUSCULAR HEMOGLOBIN 28.5 pg (27.0-33.0); MEAN CORPUSCULAR VOLUME 86.4 fl (80.0-96.0); MONO # 0.5 10^3/uL (0.0-0.8); MONO % 11.3 % (0.0-5.0); NEUTROPHILS # 3.2 10^3/uL (1.8-7.7); NEUTROPHILS % 68.9 % (36.0-66.0); PLATELET COUNT, AUTOMATED 156 10^3/uL (150-450); RED BLOOD COUNT 4.11 10^6/uL (4.00-5.40); RED CELL DISTRIBUTION WIDTH 15.1 % (11.5-14.5); WHITE BLOOD COUNT 4.7 10^3/uL (4.0-10.0)
[2017-12-05] MEDS: PERCOCET 5MG/325MG TAB PO ×2 (18:24→23:46)
[2017-12-05 18:30] LABS: ALBUMIN 3.3 GM/DL (3.2-5.2); ALBUMIN/GLOBULIN RATIO 0.83 (1.00-1.93); ALKALINE PHOSPHATASE 70 U/L (45-117); ALT/SGPT 55 U/L (12-78); ANION GAP 12 MEQ/L (8-16); AST/SGOT 36 U/L (7-37); BILIRUBIN,DIRECT 0.1 MG/DL (0.0-0.2); BILIRUBIN,TOTAL 0.3 MG/DL (0.2-1.0); BLOOD UREA NITROGEN 9 MG/DL (7-18); CALCIUM LEVEL 8.6 MG/DL (8.5-10.1); CARBON DIOXIDE LEVEL 22 MEQ/L (21-32); CHLORIDE LEVEL 105 MEQ/L (98-107); CREATININE FOR GFR 0.78 MG/DL (0.55-1.30); GLOMERULAR FILTRATION RATE > 60.0 (>60); GLUCOSE, FASTING 155 MG/DL (70-100); POTASSIUM SERUM 3.5 MEQ/L (3.5-5.1); SODIUM LEVEL 139 MEQ/L (136-145); TOTAL PROTEIN 7.3 GM/DL (6.4-8.2)
[2017-12-05] MEDS ORDERED: ISOVUE-370 76% 100ML VIAL (Q9967) As Ordered (18:38)
[2017-12-05 18:40] LABS: LACTIC ACID SEPSIS PROTOCOL 3.8 MMOL/L (0.4-2.0)
[2017-12-05] MEDS: NS 1,000 ML IV (19:27)
[2017-12-05] MEDS: cefTRIAXone SOD 1 GM in D5W MINI-BAG PLUS 50 ML IV (19:28)
[2017-12-05] MEDS ORDERED: GLUCAGON FOR INJ 1 MG VIAL (J1610) SC (20:00)
[2017-12-05] MEDS ORDERED: DEXTROSE 50% 50 ML SYRINGE IV (20:00)
[2017-12-05] MEDS ORDERED: IPRATROPIUM 0.5MG/ALBUTEROL 2.5MG INH SOL UD 3ML (DUONEB)(J7620) NEB (20:00)
[2017-12-05] MEDS ORDERED: GLUCOSE 4 GM CHEW TABLET PO (20:00)
[2017-12-05] MEDS: methylPREDNISolone INJ 125 MG/2 ML VIAL (J2930) IV (20:40)
[2017-12-05] MEDS: KETOROLAC 30 MG/ML VIAL (J1885) IV (20:40)
[2017-12-05] MEDS: QUEtiapine FUMARATE 25 MG TAB PO (21:53)
[2017-12-05] MEDS: MOXIFLOXACIN HCL 400 MG in APPROPRIATE DILUENT 1 EA IV (21:55)
[2017-12-05] MEDS: TOPIRAMATE (TopAMAX) 25 MG TAB PO (21:56)
[2017-12-05] MEDS: SERTRALINE 100 MG TAB PO (21:56)
[2017-12-05] MEDS: HEPARIN SOD (PORCINE) 5000 UNITS/ML VIAL SC (21:56)
[2017-12-05] MEDS: DOCUSATE SODIUM 100 MG CAP PO (21:57)
[2017-12-05] MEDS: VERAPAMIL 120 MG SR TAB PO (21:57)
[2017-12-05] MEDS: SENOKOT S TAB PO (21:58)
[2017-12-05] MEDS: DIVALPROEX 250 MG TAB PO (21:58)
[2017-12-05] MEDS: SODIUM CHLORIDE 0.9% 1000 ML IV (23:14)
[2017-12-06] MEDS: zolPIDEM TARTRATE 10MG TAB PO ×2 (00:11→21:43)
[2017-12-06] MEDS: HEPARIN SOD (PORCINE) 5000 UNITS/ML VIAL SC ×3 (05:33→21:44)
[2017-12-06] MEDS: PERCOCET 5MG/325MG TAB PO ×3 (05:33→21:43)
[2017-12-06] MEDS: methylPREDNISolone INJ 125 MG/2 ML VIAL (J2930) IV ×3 (05:33→21:44)
[2017-12-06 06:41] LABS: BEDSIDE GLUCOSE 229 MG/DL (70-105)
[2017-12-06] MEDS: IPRATROPIUM 0.5MG/ALBUTEROL 2.5MG INH SOL UD 3ML (DUONEB)(J7620) NEB ×4 (07:30→20:00)
[2017-12-06] MEDS: HumaLOG INSULIN (NovoLOG) PER UNIT SC ×3 (08:01→18:04)
[2017-12-06] MEDS: DOCUSATE SODIUM 100 MG CAP PO ×2 (09:59→20:24)
[2017-12-06] MEDS: SENOKOT S TAB PO ×2 (10:00→20:25)
[2017-12-06] MEDS: PANTOPRAZOLE 40MG TAB (PROTONIX) PO (10:00)
[2017-12-06 10:12] LABS: BASO % 0.2 % (0.0-1.0); HEMATOCRIT 34.5 % (36.0-47.0); HEMOGLOBIN 11.4 g/dl (12.0-15.5); IMMATURE GRANULOCYTE % 0.9 % (0-3.0); LYMPH # 0.5 10^3/uL (1.5-4.5); LYMPH % 11.1 % (24.0-44.0); MEAN CORPUSCULAR HEMOGLOBIN 28.3 pg (27.0-33.0); MEAN CORPUSCULAR VOLUME 85.6 fl (80.0-96.0); MONO # 0.1 10^3/uL (0.0-0.8); MONO % 2.1 % (0.0-5.0); NEUTROPHILS % 85.7 % (36.0-66.0); PLATELET COUNT, AUTOMATED 187 10^3/uL (150-450); RED BLOOD COUNT 4.03 10^6/uL (4.00-5.40); WHITE BLOOD COUNT 4.7 10^3/uL (4.0-10.0)
[2017-12-06 10:29] LABS: ALBUMIN 3.2 GM/DL (3.2-5.2); ALBUMIN/GLOBULIN RATIO 0.76 (1.00-1.93); ALKALINE PHOSPHATASE 72 U/L (45-117); ALT/SGPT 64 U/L (12-78); ANION GAP 13 MEQ/L (8-16); AST/SGOT 39 U/L (7-37); BILIRUBIN,TOTAL 0.3 MG/DL (0.2-1.0); BLOOD UREA NITROGEN 9 MG/DL (7-18); CALCIUM LEVEL 8.2 MG/DL (8.5-10.1); CARBON DIOXIDE LEVEL 20 MEQ/L (21-32); CHLORIDE LEVEL 106 MEQ/L (98-107); CREATININE FOR GFR 0.85 MG/DL (0.55-1.30); GLOMERULAR FILTRATION RATE > 60.0 (>60); GLUCOSE, FASTING 296 MG/DL (70-100); SODIUM LEVEL 139 MEQ/L (136-145); TOTAL PROTEIN 7.4 GM/DL (6.4-8.2)
[2017-12-06 10:32] LABS: LACTIC ACID SEPSIS PROTOCOL 4.1 MMOL/L (0.4-2.0)
[2017-12-06] MEDS: NS 1,000 ML IV ×2 (10:53→21:44)
[2017-12-06 11:42] LABS: BEDSIDE GLUCOSE 270 MG/DL (70-105)
[2017-12-06] MEDS: SUMAtriptan SUCCINATE 6 MG/0.5 ML VIAL SC (15:40)
[2017-12-06] MEDS: ONDANSETRON 4MG/2ML VIAL (J2405) IV (15:49)
[2017-12-06 16:20] LABS: LACTIC ACID SEPSIS PROTOCOL 3.5 MMOL/L (0.4-2.0)
[2017-12-06 16:57] LABS: BEDSIDE GLUCOSE 316 MG/DL (70-105)
[2017-12-06] MEDS: VERAPAMIL 120 MG SR TAB PO (18:04)
[2017-12-06] MEDS: MOXIFLOXACIN HCL 400 MG in APPROPRIATE DILUENT 1 EA IV (20:24)
[2017-12-06] MEDS: SERTRALINE 100 MG TAB PO (20:24)
[2017-12-06] MEDS: DIVALPROEX 250 MG TAB PO (20:25)
[2017-12-06] MEDS: QUEtiapine FUMARATE 25 MG TAB PO (20:25)
[2017-12-06] MEDS: TOPIRAMATE (TopAMAX) 25 MG TAB PO (20:25)
[2017-12-07] MEDS: MORPHINE 4 MG/ML 1ML VIAL/SYRINGE (J2270) IV (00:20)
[2017-12-07] MEDS: NS 1,000 ML IV (03:40)
[2017-12-07] MEDS: methylPREDNISolone INJ 125 MG/2 ML VIAL (J2930) IV (05:25)
[2017-12-07] MEDS: HEPARIN SOD (PORCINE) 5000 UNITS/ML VIAL SC ×3 (05:25→21:43)
[2017-12-07 05:33] LABS: BEDSIDE GLUCOSE 272 MG/DL (70-105)
[2017-12-07 06:01] LABS: LACTIC ACID SEPSIS PROTOCOL 3.7 MMOL/L (0.4-2.0)
[2017-12-07] MEDS: HumaLOG INSULIN (NovoLOG) PER UNIT SC ×4 (07:30→22:48)
[2017-12-07] MEDS: IPRATROPIUM 0.5MG/ALBUTEROL 2.5MG INH SOL UD 3ML (DUONEB)(J7620) NEB ×4 (08:00→20:19)
[2017-12-07] MEDS: SENOKOT S TAB PO ×2 (09:00→20:03)
[2017-12-07] MEDS: PANTOPRAZOLE 40MG TAB (PROTONIX) PO (09:00)
[2017-12-07] MEDS: DOCUSATE SODIUM 100 MG CAP PO ×2 (09:00→20:03)
[2017-12-07 11:39] LABS: BEDSIDE GLUCOSE 344 MG/DL (70-105)
[2017-12-07] MEDS: predniSONE 20 MG TAB PO (11:47)
[2017-12-07 17:06] LABS: BEDSIDE GLUCOSE 386 MG/DL (70-105)
[2017-12-07] MEDS: ACETAMINOPHEN TAB 650MG DOSE (2X325MG) PO (17:17)
[2017-12-07] MEDS: VERAPAMIL 120 MG SR TAB PO (18:16)
[2017-12-07] MEDS: QUEtiapine FUMARATE 25 MG TAB PO (20:02)
[2017-12-07] MEDS: TOPIRAMATE (TopAMAX) 25 MG TAB PO (20:02)
[2017-12-07] MEDS: MOXIFLOXACIN 400 MG TAB PO (20:02)
[2017-12-07] MEDS: DIVALPROEX 250 MG TAB PO (20:02)
[2017-12-07] MEDS: SERTRALINE 100 MG TAB PO (20:03)
[2017-12-07] MEDS: zolPIDEM TARTRATE 10MG TAB PO (21:43)
[2017-12-07 21:46] LABS: BEDSIDE GLUCOSE 385 MG/DL (70-105)
[2017-12-08] MEDS: ACETAMINOPHEN TAB 650MG DOSE (2X325MG) PO ×2 (02:18→08:34)
[2017-12-08 05:37] LABS: BASO # 0.1 10^3/uL (0.0-0.2); BASO % 0.7 % (0.0-1.0); EOS % 0.1 % (0.0-3.0); HEMATOCRIT 33.3 % (36.0-47.0); IMMATURE GRANULOCYTE % 2.5 % (0-3.0); LYMPH # 2.6 10^3/uL (1.5-4.5); LYMPH % 31.2 % (24.0-44.0); MEAN CORPUSCULAR HEMOGLOBIN 28.9 pg (27.0-33.0); MEAN CORPUSCULAR VOLUME 87.6 fl (80.0-96.0); MONO # 0.7 10^3/uL (0.0-0.8); MONO % 7.9 % (0.0-5.0); NEUTROPHILS # 4.8 10^3/uL (1.8-7.7); NEUTROPHILS % 57.6 % (36.0-66.0); PLATELET COUNT, AUTOMATED 178 10^3/uL (150-450); WHITE BLOOD COUNT 8.4 10^3/uL (4.0-10.0)
[2017-12-08] MEDS: HEPARIN SOD (PORCINE) 5000 UNITS/ML VIAL SC (05:55)
[2017-12-08 06:11] LABS: ALBUMIN 3.3 GM/DL (3.2-5.2); ALBUMIN/GLOBULIN RATIO 0.92 (1.00-1.93); ALKALINE PHOSPHATASE 59 U/L (45-117); ALT/SGPT 68 U/L (12-78); ANION GAP 8 MEQ/L (8-16); AST/SGOT 24 U/L (7-37); BILIRUBIN,TOTAL 0.2 MG/DL (0.2-1.0); BLOOD UREA NITROGEN 15 MG/DL (7-18); CALCIUM LEVEL 8.5 MG/DL (8.5-10.1); CARBON DIOXIDE LEVEL 28 MEQ/L (21-32); CHLORIDE LEVEL 104 MEQ/L (98-107); CREATININE FOR GFR 0.86 MG/DL (0.55-1.30); GLOMERULAR FILTRATION RATE > 60.0 (>60); GLUCOSE, FASTING 186 MG/DL (70-100); POTASSIUM SERUM 4.1 MEQ/L (3.5-5.1); SODIUM LEVEL 140 MEQ/L (136-145); TOTAL PROTEIN 6.9 GM/DL (6.4-8.2)
[2017-12-08] MEDS: IPRATROPIUM 0.5MG/ALBUTEROL 2.5MG INH SOL UD 3ML (DUONEB)(J7620) NEB ×2 (07:28→11:10)
[2017-12-08] MEDS: HumaLOG INSULIN (NovoLOG) PER UNIT SC ×2 (08:13→12:01)
[2017-12-08] MEDS: PANTOPRAZOLE 40MG TAB (PROTONIX) PO (08:34)
[2017-12-08] MEDS: SENOKOT S TAB PO (08:34)
[2017-12-08] MEDS: predniSONE 20 MG TAB PO (08:34)
[2017-12-08] MEDS: DOCUSATE SODIUM 100 MG CAP PO (08:35)
[2017-12-08] MEDS: MOXIFLOXACIN 400 MG TAB PO (08:35)
[2017-12-08 11:56] LABS: BEDSIDE GLUCOSE 313 MG/DL (70-105)
== END 2017-12-08 13:15 | disposition home or self-care (01) | DRG 139 ==
LOC: M ED 16:29 → M ED INP 19:51 → M PCU 23:10
DX: J18.9 Pneumonia, unspecified organism (principal); Z68.43 Body mass index [BMI] 50.0-59.9, adult; E66.01 Morbid (severe) obesity due to excess calories; E11.65 Type 2 diabetes mellitus with hyperglycemia; J45.901 Unspecified asthma with (acute) exacerbation; I10 Essential (primary) hypertension; F70 Mild intellectual disabilities; F32.9 Major depressive disorder, single episode, unspecified; F42.9 Obsessive-compulsive disorder, unspecified; G47.00 Insomnia, unspecified; E78.1 Pure hyperglyceridemia; A60.09 Herpesviral infection of other urogenital tract; G43.109 Migraine with aura, not intractable, without status migrainosus; Z87.442 Personal history of urinary calculi; Z88.6 Allergy status to analgesic agent; Z91.018 Allergy to other foods; Z91.048 Other nonmedicinal substance allergy status; Z79.84 Long term (current) use of oral hypoglycemic drugs; Z77.22 Contact with and (suspected) exposure to environmental tobacco smoke (acute) (chronic); Z79.899 Other long term (current) drug therapy

== ENCOUNTER 2018-02-10 06:36 | Emergency (ER) | payer MEDICAID ==
[2018-02-10 07:38] LABS: BASO % 0.4 % (0.0-1.0); EOS # 0.1 10^3/uL (0.0-0.50); EOS % 0.8 % (0.0-3.0); HEMATOCRIT 40.1 % (36.0-47.0); HEMOGLOBIN 13.2 g/dl (12.0-15.5); IMMATURE GRANULOCYTE % 0.6 % (0-3.0); LYMPH # 1.9 10^3/uL (1.5-4.5); LYMPH % 23.8 % (24.0-44.0); MEAN CORPUSCULAR HEMOGLOBIN 29.1 pg (27.0-33.0); MEAN CORPUSCULAR HGB CONC 32.9 g/dl (32.0-36.5); MEAN CORPUSCULAR VOLUME 88.5 fl (80.0-96.0); MONO # 0.4 10^3/uL (0.0-0.8); MONO % 5.5 % (0.0-5.0); NEUTROPHILS # 5.5 10^3/uL (1.8-7.7); NEUTROPHILS % 68.9 % (36.0-66.0); PLATELET COUNT, AUTOMATED 213 10^3/uL (150-450); RED BLOOD COUNT 4.53 10^6/uL (4.00-5.40); RED CELL DISTRIBUTION WIDTH 14.7 % (11.5-14.5); WHITE BLOOD COUNT 7.9 10^3/uL (4.0-10.0)
[2018-02-10] MEDS: diphenhydrAMINE INJ 50MG/ML VIAL (J1200) IV (07:42)
[2018-02-10] MEDS: METOCLOPRAMIDE INJ 10MG/2ML VIAL (J2765) IV (07:42)
[2018-02-10] MEDS: KETOROLAC 30 MG/ML VIAL (J1885) IV (07:42)
[2018-02-10 07:52] LABS: ANION GAP 12 MEQ/L (8-16); BLOOD UREA NITROGEN 15 MG/DL (7-18); CARBON DIOXIDE LEVEL 22 MEQ/L (21-32); CHLORIDE LEVEL 105 MEQ/L (98-107); GLOMERULAR FILTRATION RATE > 60.0 (>60); GLUCOSE, FASTING 158 MG/DL (70-100); SODIUM LEVEL 139 MEQ/L (136-145)
[2018-02-10] MEDS: MORPHINE 4 MG/ML 1ML VIAL/SYRINGE (J2270) IV (08:19)
[2018-02-10] MEDS: NS 1,000 ML IV (08:19)
== END 2018-02-10 09:16 | disposition home or self-care (01) ==
LOC: M ED 06:36
DX: G43.909 Migraine, unspecified, not intractable, without status migrainosus (principal); E11.9 Type 2 diabetes mellitus without complications; K21.9 Gastro-esophageal reflux disease without esophagitis; M54.9 Dorsalgia, unspecified; Z88.6 Allergy status to analgesic agent; Z91.02 Food additives allergy status; Z79.899 Other long term (current) drug therapy; Z79.84 Long term (current) use of oral hypoglycemic drugs
CPT/HCPCS: J2270

== ENCOUNTER 2018-02-23 10:24 | Emergency (ER) | payer MEDICAID ==
[2018-02-23] MEDS: BACLOFEN 10 MG TAB PO (11:12)
[2018-02-23] MEDS: KETOROLAC 60 MG/2 ML VIAL (J1885) IM (11:13)
[2018-02-23] MEDS: PERCOCET 5MG/325MG TAB PO (12:30)
== END 2018-02-23 13:55 | disposition home or self-care (01) ==
LOC: M ED 10:24
DX: S39.012A Strain of muscle, fascia and tendon of lower back, initial encounter (principal); X58.XXXA Exposure to other specified factors, initial encounter; Y92.89 Other specified places as the place of occurrence of the external cause; M54.40 Lumbago with sciatica, unspecified side; K21.9 Gastro-esophageal reflux disease without esophagitis; G43.909 Migraine, unspecified, not intractable, without status migrainosus; E11.9 Type 2 diabetes mellitus without complications; F42.9 Obsessive-compulsive disorder, unspecified; F41.9 Anxiety disorder, unspecified; Z87.442 Personal history of urinary calculi; Z88.6 Allergy status to analgesic agent; Z91.02 Food additives allergy status; Z79.899 Other long term (current) drug therapy; Z79.84 Long term (current) use of oral hypoglycemic drugs
CPT/HCPCS: J1885

== ENCOUNTER → 2018-03-30 | Outpatient (REF) | payer MEDICAID ==
[2018-03-30 13:47] LABS: CHOLESTEROL LEVEL 212 MG/DL (<200); CHOLESTEROL RISK RATIO 6.235 (<5); HDL CHOLESTEROL 34 MG/DL (>40); LDL CHOLESTEROL 110 MG/DL (<100); MAGNESIUM LEVEL 1.9 MG/DL (1.8-2.4); NON-HDL-C 178 MG/DL; TRIGLYCERIDES LEVEL 338 MG/DL (<150)
[2018-03-30 13:48] LABS: ESTIMATED AVERAGE GLUCOSE 166 MG/DL (60-110); HEMOGLOBIN A1c 7.4 %
== END ==
LOC: M LABDRAWP 11:27
DX: E11.9 Type 2 diabetes mellitus without complications (principal); Z13.220 Encounter for screening for lipoid disorders; R20.2 Paresthesia of skin

== ENCOUNTER 2018-04-02 17:50 | Emergency (ER) | payer MEDICAID ==
[2018-04-02] MEDS: diphenhydrAMINE INJ 50MG/ML VIAL (J1200) IV (20:07)
[2018-04-02] MEDS: NS 1,000 ML IV (20:07)
[2018-04-02] MEDS: METOCLOPRAMIDE INJ 10MG/2ML VIAL (J2765) IV (20:07)
[2018-04-02] MEDS: KETOROLAC 30 MG/ML VIAL (J1885) IV (20:08)
[2018-04-02] MEDS: ONDANSETRON 4MG/2ML VIAL (J2405) IV (21:19)
[2018-04-02] MEDS: MORPHINE 4 MG/ML 1ML VIAL/SYRINGE (J2270) IV (21:20)
== END 2018-04-02 21:58 | disposition home or self-care (01) ==
LOC: M ED 17:50
DX: G43.909 Migraine, unspecified, not intractable, without status migrainosus (principal); E11.9 Type 2 diabetes mellitus without complications; K21.9 Gastro-esophageal reflux disease without esophagitis; M54.30 Sciatica, unspecified side; R56.9 Unspecified convulsions; F41.9 Anxiety disorder, unspecified; F32.9 Major depressive disorder, single episode, unspecified; F42.9 Obsessive-compulsive disorder, unspecified; Z88.6 Allergy status to analgesic agent; Z91.02 Food additives allergy status; Z79.899 Other long term (current) drug therapy; Z79.84 Long term (current) use of oral hypoglycemic drugs
CPT/HCPCS: J2270

== ENCOUNTER 2018-06-30 14:55 | Emergency (ER) | payer MEDICAID ==
[~2018-06-30] VITALS: Ht 170.2 cm; Wt 145.4 kg
[~2018-06-30 14:55] MED LIST changes: -ACET50TA PO; +ALBU83IN INH; +BACL1TAB9 PO; +FLOM0.4C39 PO; +IPRA0.00 NEB; +LEVA1TAB2 PO; +MAPA500T2 PO; +METF-415 PO; +METF10004 PO; +METF500T13 PO; +METF500T4 PO; +MOXI1TAB PO; +MUCI600T31 PO; +PANT40TA3; +PANT40TA3 PO; +PERC5TAB12 PO; +PRED20TA PO; +PROAAER10 INH; +PROM12.56 PO; +QUET1TAB7 PO; +TESS100C PO; +TOPA100T12 PO; +TOPI25TA10 PO; +TYLE650T35 PO; +ZITHTAB PO; +ZOFR4TAB14 PO; -ZOFR4TAB3 PO
[2018-06-30] MEDS ORDERED: ONDANSETRON 4MG/2ML VIAL (J2405) IV ONE (15:30)
[2018-06-30] MEDS ORDERED: NS 1,000 ML IV ONE (15:30)
[2018-06-30] MEDS ORDERED: KETOROLAC 30 MG/ML VIAL (J1885) IV ONE (15:30)
[2018-06-30 15:57] LABS: BASO % 0.4 % (0.0-1.0); EOS # 0.1 10^3/uL (0.0-0.50); EOS % 0.9 % (0.0-3.0); HEMATOCRIT 39.2 % (36.0-47.0); HEMOGLOBIN 12.9 g/dl (12.0-15.5); LYMPH # 2.3 10^3/uL (1.5-4.5); LYMPH % 27.1 % (24.0-44.0); MEAN CORPUSCULAR HGB CONC 32.9 g/dl (32.0-36.5); MEAN CORPUSCULAR VOLUME 88.1 fl (80.0-96.0); MONO # 0.4 10^3/uL (0.0-0.8); MONO % 5.1 % (0.0-5.0); NEUTROPHILS # 5.6 10^3/uL (1.8-7.7); NEUTROPHILS % 66.1 % (36.0-66.0); PLATELET COUNT, AUTOMATED 252 10^3/uL (150-450); RED BLOOD COUNT 4.45 10^6/uL (4.00-5.40); WHITE BLOOD COUNT 8.5 10^3/uL (4.0-10.0)
[2018-06-30 16:21] LABS: ALBUMIN 3.9 GM/DL (3.2-5.2); ALT/SGPT 45 U/L (12-78); AMYLASE 25 U/L (25-115); BILIRUBIN,DIRECT < 0.1 MG/DL (0.0-0.2); BILIRUBIN,TOTAL 0.2 MG/DL (0.2-1.0); BLOOD UREA NITROGEN 11 MG/DL (7-18); CALCIUM LEVEL 8.6 MG/DL (8.5-10.1); CARBON DIOXIDE LEVEL 25 MEQ/L (21-32); CHLORIDE LEVEL 105 MEQ/L (98-107); GLOMERULAR FILTRATION RATE > 60.0 (>60); GLUCOSE, FASTING 141 MG/DL (70-100); LIPASE 140 U/L (73-393); POTASSIUM SERUM 3.9 MEQ/L (3.5-5.1); SODIUM LEVEL 139 MEQ/L (136-145); TOTAL PROTEIN 7.3 GM/DL (6.4-8.2)
[2018-06-30] MEDS ORDERED: MORPHINE 4 MG/ML 1ML VIAL/SYRINGE (J2270) IV ONE (16:30)
--- NOTE | 2018-06-30 16:49 | REP ---
CT ABDOMEN AND PELVIS WITHOUT CONTRAST: 06/30/2018. Clinical history: Right flank pain, history of kidney stones. Technique: Noncontrast CT protocol abdomen and pelvis with coronal and sagittal reconstructions. Comparison: 09/26/2017. Findings: CT abdomen: The lung bases were clear except for some minor dependent atelectatic changes posteriorly in the lower lung zone on the right. Heart not grossly enlarged. There is no pericardial thickening or effusion and no hiatal hernia. There is fatty infiltration of the liver diffusely with hepatomegaly up to 20 2.6 cm vertical diameter in the midclavicular line. The left lobe of the liver also prominent. Spleen is enlarged with a 18.5 cm vertical x 12.7 cm transverse x 4.4 cm AP dimension. This gives a splenic index calculation of 1006. (Normal range up to 480). Cholecystectomy clips in the fossa and the pancreas, adrenal glands and stomach unremarkable. Tiny calcification in the lower pole pyramid on the right 1-2 mm. No hydronephrosis, hydroureter or ureteral stone on that side. There is no cyst or solid mass. Left kidney shows a stable 4 mm stone in the upper pole, unchanged. There is some scarring at the apex of that left kidney. There is a tiny pyramidal stone 1-2 mm in the lower pole on the left. I do not see hydroureter or ureteral stone anywhere on that left side. Aorta is normal. No periaortic or retroperitoneal adenopathy. Colon and small bowel loops in the abdomen proper were grossly intact. Lung window review of all CT slices abdomen and pelvis shows no perforation or free air. No ventral abdominal wall hernia in the abdomen. The bone windows show lumbar and lower thoracic levels without compression deformity or destructive lesion. There is no spondylolysis or spondylolisthesis. The visualized ribs are intact. CT pelvis: Sacrum, SI joints, pelvis and hips are without any acute finding. Uterus anteverted with an IUD in the body and lower uterine segment, unchanged. No enlargement of the uterus, adnexal mass or pelvic free fluid. No pelvic lymphadenopathy. No ventral or inguinal hernia nor inguinal adenopathy. Distal left colon, sigmoid and rectum without colitis or diverticulitis. Cecum is unremarkable. No inflammatory changes adjacent to it. Subcutaneous soft tissues without acute finding. Impression: 1. There is mild bilateral nephrolithiasis with the largest stone a 4 mm calculus and upper pole on the left, unchanged and with a couple of 1-2 mm stones in pyramids in the lower pole on each side. This is unchanged from the prior CT. No hydronephrosis, hydroureter and no renal collecting system, ureteral or bladder stones. 2. No other significant finding or interval change. No inflammatory changes in bowel loops, ascites, adenopathy, focal bone abnormality nor other acute finding. Electronically Signed by Roberto Tineo MD 06/30/2018 05:23 P
[2018-06-30 17:11] LABS: CK-MB VALUE MASS < 1.0 NG/ML (<3.6); CPK CREATINE PHOSPHOKINASE 36 U/L (26-192); MB/CK RELATIVE INDEX 2.78 (< OR =4); TROPONIN I < 0.02 NG/ML (< 0.10)
[2018-06-30] MEDS ORDERED: BACT800T5 PO (17:25)
[2018-06-30] MEDS ORDERED: ACET30TAB PO (17:26)
[2018-06-30 17:38] VITALS: BP 129/70
--- NOTE | 2018-07-01 08:01 | ECGEPIP ---
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
== END 2018-06-30 17:39 | disposition home or self-care (01) ==
LOC: M ED 14:55
DX: R10.9 Unspecified abdominal pain (principal); R07.89 Other chest pain
CPT/HCPCS: 74176; 80048; 80076; 81001; 81025; 82150; 82550; 82553; 83690; 85025; 87086; 93005; 96374; 96375; 99284; J1885; J2270; J2405

== ENCOUNTER 2018-07-03 09:21 | Emergency (ER) | payer MEDICAID ==
[~2018-07-03] VITALS: Ht 170.2 cm; Wt 145.4 kg
[~2018-07-03 09:21] MED LIST changes: +ACET30TAB PO; +BACT800T5 PO
[2018-07-03 09:45] LABS: BASO % 0.6 % (0.0-1.0); EOS # 0.1 10^3/uL (0.0-0.50); EOS % 0.9 % (0.0-3.0); HEMOGLOBIN 12.3 g/dl (12.0-15.5); LYMPH # 1.8 10^3/uL (1.5-4.5); LYMPH % 25.1 % (24.0-44.0); MEAN CORPUSCULAR HEMOGLOBIN 28.2 pg (27.0-33.0); MEAN CORPUSCULAR HGB CONC 32.4 g/dl (32.0-36.5); MEAN CORPUSCULAR VOLUME 87.2 fl (80.0-96.0); MONO # 0.4 10^3/uL (0.0-0.8); NEUTROPHILS # 4.7 10^3/uL (1.8-7.7); PLATELET COUNT, AUTOMATED 252 10^3/uL (150-450); RED BLOOD COUNT 4.36 10^6/uL (4.00-5.40)
[2018-07-03] MEDS ORDERED: ONDANSETRON 4MG/2ML VIAL (J2405) IV ONE (10:00)
[2018-07-03] MEDS: MORPHINE 4 MG/ML 1ML VIAL/SYRINGE (J2270) IV PRN ×2 (10:00→11:02)
[2018-07-03] MEDS ORDERED: NS 1,000 ML IV ONE (10:00)
[2018-07-03 10:07] LABS: HCG, SERUM QUALITATIVE NEGATIVE (NEGATIVE)
[2018-07-03 10:21] LABS: ALBUMIN 3.6 GM/DL (3.2-5.2); ALT/SGPT 48 U/L (12-78); AMYLASE 18 U/L (25-115); BILIRUBIN,DIRECT 0.1 MG/DL (0.0-0.2); BILIRUBIN,TOTAL 0.3 MG/DL (0.2-1.0); BLOOD UREA NITROGEN 10 MG/DL (7-18); CALCIUM LEVEL 8.4 MG/DL (8.5-10.1); CARBON DIOXIDE LEVEL 21 MEQ/L (21-32); CHLORIDE LEVEL 107 MEQ/L (98-107); CK-MB VALUE MASS < 1.0 NG/ML (<3.6); CPK CREATINE PHOSPHOKINASE 38 U/L (26-192); CREATININE FOR GFR 0.93 MG/DL (0.55-1.30); GLOMERULAR FILTRATION RATE > 60.0 (>60); GLUCOSE, FASTING 134 MG/DL (70-100); LIPASE 106 U/L (73-393); MB/CK RELATIVE INDEX 2.63 (< OR =4); POTASSIUM SERUM 4.4 MEQ/L (3.5-5.1); SODIUM LEVEL 138 MEQ/L (136-145); TOTAL PROTEIN 6.9 GM/DL (6.4-8.2); TROPONIN I < 0.02 NG/ML (< 0.10)
[2018-07-03] MEDS ORDERED: PERC5TAB12 PO (10:55)
[2018-07-03] MEDS ORDERED: REGL10TA6 PO (10:55)
[2018-07-03] MEDS ORDERED: METOCLOPRAMIDE INJ 10MG/2ML VIAL (J2765) IV ONE (11:00)
[2018-07-03 12:19] VITALS: BP 119/66
[2018-07-03 12:28] LABS: CHLAMYDIA DNA AMPLIFICATION NEGATIVE (NEGATIVE); GC DNA AMPLIFICATION NEGATIVE (NEGATIVE)
--- NOTE | 2018-07-03 13:13 | REP ---
CHEST PA AND LATERAL: 07/03/2018. Clinical history: Right upper quadrant pain. Comparison: CT and chest x-ray 12/05/2017. Findings: Two-view show the lungs well inflated. Some subtle infrahilar linear increased density on the right that may reflect some subsegmental atelectasis. No dense consolidation or effusion. Heart has left ventricular configuration with some left ventricular enlargement confirmed on the lateral view but mild. No vascular redistribution or pulmonary edema. Aorta and airway intact bony thorax without focal lesion. There is no free air. Impression: 1. Question of some infrahilar patchy atelectasis right base without dense consolidation or effusion. 2. Left ventricular enlargement but no vascular redistribution or pulmonary edema. Electronically Signed by Roberto Tineo MD 07/03/2018 02:03 P
--- NOTE | 2018-07-04 09:22 | ECGEPIP ---
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
== END 2018-07-03 12:27 | disposition home or self-care (01) ==
LOC: M ED 09:21
DX: K75.9 Inflammatory liver disease, unspecified (principal); E83.51 Hypocalcemia; R03.0 Elevated blood-pressure reading, without diagnosis of hypertension; R07.9 Chest pain, unspecified; R91.8 Other nonspecific abnormal finding of lung field; R10.11 Right upper quadrant pain; R19.7 Diarrhea, unspecified; R11.2 Nausea with vomiting, unspecified; M79.601 Pain in right arm; M79.602 Pain in left arm; E11.9 Type 2 diabetes mellitus without complications; K76.0 Fatty (change of) liver, not elsewhere classified; G43.909 Migraine, unspecified, not intractable, without status migrainosus; J45.909 Unspecified asthma, uncomplicated; K21.9 Gastro-esophageal reflux disease without esophagitis; M54.30 Sciatica, unspecified side; F42.9 Obsessive-compulsive disorder, unspecified; Z91.048 Other nonmedicinal substance allergy status; Z88.8 Allergy status to other drugs, medicaments and biological substances; Z79.899 Other long term (current) drug therapy; Z79.2 Long term (current) use of antibiotics; Z79.84 Long term (current) use of oral hypoglycemic drugs; Z79.1 Long term (current) use of non-steroidal anti-inflammatories (NSAID)
CPT/HCPCS: 71046; 80048; 80076; 81001; 82150; 82550; 82553; 83690; 84703; 85025; 87086; 87210; 87491; 87591; 93005; 96374; 96375; 96376; 99284; J2270; J2405; J2765

== ENCOUNTER → 2018-07-05 | Outpatient (REF) | payer MEDICAID ==
[~2018-07-05] MED LIST changes: +REGL10TA6 PO
[2018-07-05 13:16] LABS: BASO % 0.4 % (0.0-1.0); EOS # 0.1 10^3/uL (0.0-0.50); EOS % 0.8 % (0.0-3.0); HEMATOCRIT 41.1 % (36.0-47.0); HEMOGLOBIN 13.2 g/dl (12.0-15.5); LYMPH # 1.6 10^3/uL (1.5-4.5); MEAN CORPUSCULAR HEMOGLOBIN 28.3 pg (27.0-33.0); MEAN CORPUSCULAR HGB CONC 32.1 g/dl (32.0-36.5); MONO # 0.5 10^3/uL (0.0-0.8); MONO % 5.5 % (0.0-5.0); NEUTROPHILS # 6.7 10^3/uL (1.8-7.7); NEUTROPHILS % 74.9 % (36.0-66.0); PLATELET COUNT, AUTOMATED 302 10^3/uL (150-450); RED BLOOD COUNT 4.67 10^6/uL (4.00-5.40); WHITE BLOOD COUNT 8.9 10^3/uL (4.0-10.0)
[2018-07-05 13:42] LABS: ALT/SGPT 62 U/L (12-78); BILIRUBIN,TOTAL 0.4 MG/DL (0.2-1.0); BLOOD UREA NITROGEN 13 MG/DL (7-18); CALCIUM LEVEL 9.4 MG/DL (8.5-10.1); CARBON DIOXIDE LEVEL 26 MEQ/L (21-32); CHLORIDE LEVEL 103 MEQ/L (98-107); CREATININE FOR GFR 1.03 MG/DL (0.55-1.30); GLOMERULAR FILTRATION RATE > 60.0 (>60); GLUCOSE, FASTING 137 MG/DL (70-100); LIPASE 153 U/L (73-393); SODIUM LEVEL 136 MEQ/L (136-145); TOTAL PROTEIN 7.6 GM/DL (6.4-8.2)
== END ==
LOC: M SFHCPLAZ 11:58
PROVIDERS: ATTEND Family Medicine
DX: R11.2 Nausea with vomiting, unspecified (principal); R10.13 Epigastric pain

== ENCOUNTER 2018-09-07 18:56 | Emergency (ER) | payer MEDICAID ==
[~2018-09-07] VITALS: Ht 170.2 cm; Wt 136.4 kg
[~2018-09-07 18:56] MED LIST changes: +ACET-716 PO; -ACET30TAB PO; +HYDR-3715 PO; -NORCOTAB PO; +TRAZ1TAB6 PO; -TRAZO50TA PO
[2018-09-07] MEDS ORDERED: TRAZ-163 PO (19:08)
[2018-09-07] MEDS ORDERED: PROP60TA18 PO (19:08)
[2018-09-07] MEDS ORDERED: GI COCKTAIL 50ML BTL(HYOSCYAMINE/MAALOX/LIDOCAINE VISCOUS)(1:3:1) PO ONE (19:45)
[2018-09-07 19:57] LABS: BASO # 0.1 10^3/uL (0.0-0.2); BASO % 0.7 % (0.0-1.0); EOS # 0.1 10^3/uL (0.0-0.50); EOS % 1.2 % (0.0-3.0); HEMATOCRIT 35.2 % (36.0-47.0); HEMOGLOBIN 11.4 g/dl (12.0-15.5); LYMPH # 2.3 10^3/uL (1.5-4.5); LYMPH % 33.6 % (24.0-44.0); MEAN CORPUSCULAR HEMOGLOBIN 28.9 pg (27.0-33.0); MEAN CORPUSCULAR HGB CONC 32.4 g/dl (32.0-36.5); MEAN CORPUSCULAR VOLUME 89.3 fl (80.0-96.0); MONO # 0.4 10^3/uL (0.0-0.8); NEUTROPHILS % 57.6 % (36.0-66.0); PLATELET COUNT, AUTOMATED 242 10^3/uL (150-450); RED BLOOD COUNT 3.94 10^6/uL (4.00-5.40); WHITE BLOOD COUNT 6.9 10^3/uL (4.0-10.0)
--- NOTE | 2018-09-07 20:07 | ECGEPIP ---
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
[2018-09-07 20:09] LABS: PARTIAL THROMBOPLASTIN TIME 29.9 SECONDS (25.4-37.6); PROTHROMBIN TIME 13.3 SECONDS (12.1-14.4)
[2018-09-07 20:34] LABS: HCG, SERUM QUALITATIVE NEGATIVE (NEGATIVE)
[2018-09-07 20:35] LABS: ERYTHROCYTE SEDIMENTATION RATE 32 mm/hr (0-20)
[2018-09-07 20:38] LABS: ALBUMIN 3.4 GM/DL (3.2-5.2); ALT/SGPT 34 U/L (12-78); BILIRUBIN,DIRECT < 0.1 MG/DL (0.0-0.2); BILIRUBIN,TOTAL 0.2 MG/DL (0.2-1.0); BLOOD UREA NITROGEN 9 MG/DL (7-18); C REACTIVE PROTEIN QUANTITATIV 0.94 MG/DL (0.00-0.30); CALCIUM LEVEL 8.9 MG/DL (8.5-10.1); CARBON DIOXIDE LEVEL 26 MEQ/L (21-32); CHLORIDE LEVEL 106 MEQ/L (98-107); CK-MB VALUE MASS < 1.0 NG/ML (<3.6); CPK CREATINE PHOSPHOKINASE 35 U/L (26-192); CREATININE FOR GFR 0.78 MG/DL (0.55-1.30); GLOMERULAR FILTRATION RATE > 60.0 (>60); GLUCOSE, FASTING 143 MG/DL (70-100); MB/CK RELATIVE INDEX 2.86 (< OR =4); NT-PRO BNP 91 PG/ML (<125); POTASSIUM SERUM 4.2 MEQ/L (3.5-5.1); SODIUM LEVEL 140 MEQ/L (136-145); TOTAL PROTEIN 6.6 GM/DL (6.4-8.2); TROPONIN I < 0.02 NG/ML (< 0.10)
--- NOTE | 2018-09-07 21:25 | REP ---
Clinical: Chest pain . Comparison: 07/03/2018 . Technique: PA and lateral. Findings: The mediastinum and cardiac silhouette are normal. The lung garland are clear and without acute consolidation, effusion, or pneumothorax. The skeletal structures are intact and normal. Impression: 1. No acute cardiopulmonary process. Electronically Signed by Rick Hurt MD 09/07/2018 09:16 P
[2018-09-07] MEDS ORDERED: KETOROLAC 30 MG/ML VIAL (J1885) IV ONE (21:30)
[2018-09-07] MEDS ORDERED: IBUP-1114 PO (22:33)
[2018-09-07 23:15] VITALS: BP 125/69
== END 2018-09-07 23:24 | disposition home or self-care (01) ==
LOC: M ED 18:56
DX: R07.89 Other chest pain (principal); E11.9 Type 2 diabetes mellitus without complications; I10 Essential (primary) hypertension; G43.909 Migraine, unspecified, not intractable, without status migrainosus; Z88.6 Allergy status to analgesic agent; Z91.048 Other nonmedicinal substance allergy status; Z79.899 Other long term (current) drug therapy
CPT/HCPCS: 71046; 80048; 80076; 82550; 82553; 83880; 84443; 84703; 85025; 85610; 85652; 85730; 86140; 93005; 93041; 94760; 96374; 99285; J1885

== ENCOUNTER → 2018-10-01 | Outpatient (REF) | payer MEDICAID ==
[~2018-10-01] MED LIST changes: +IBUP-1114 PO; +PROP60TA18 PO; +TRAZ-163 PO
[2018-10-01 17:04] LABS: ALBUMIN 3.8 GM/DL (3.2-5.2); ALT/SGPT 35 U/L (12-78); BILIRUBIN,TOTAL 0.2 MG/DL (0.2-1.0); BLOOD UREA NITROGEN 13 MG/DL (7-18); CALCIUM LEVEL 8.8 MG/DL (8.5-10.1); CARBON DIOXIDE LEVEL 25 MEQ/L (21-32); CHLORIDE LEVEL 104 MEQ/L (98-107); CREATININE FOR GFR 0.72 MG/DL (0.55-1.30); GLOMERULAR FILTRATION RATE > 60.0 (>60); GLUCOSE, FASTING 131 MG/DL (70-100); POTASSIUM SERUM 4.1 MEQ/L (3.5-5.1); SODIUM LEVEL 138 MEQ/L (136-145); TOTAL PROTEIN 6.9 GM/DL (6.4-8.2)
[2018-10-01 17:22] LABS: HEMOGLOBIN A1c 7.5 %
[2018-10-01 17:33] LABS: MALB URINE SIEMENS 91.9 MG/L
== END ==
LOC: M SFHCPLAZ 13:16
PROVIDERS: ATTEND Family Medicine
DX: E11.9 Type 2 diabetes mellitus without complications (principal); E78.1 Pure hyperglyceridemia; I10 Essential (primary) hypertension

== ENCOUNTER → 2018-10-06 | Outpatient (CLI) | payer MEDICAID ==
--- NOTE | 2018-10-06 13:00 | REPMRS ---
Patient History The patient states she had a clinical breast exam in 09/2018. Baseline Mammogram Patient had first child at age 33. Family history of breast cancer at age 22 in maternal grandmother, breast cancer at age 42 in maternal aunt, colorectal cancer under age 50 in maternal aunt, colorectal cancer under age 50 in maternal aunt, colorectal cancer at age 50 or over and prostate cancer at age 50 or over in paternal grandfather. 3D TOMOSYNTHESIS WAS PERFORMED. Digital Woman Screen Mammo: October 06, 2018 - Exam #: [id number] Bilateral CC and MLO view(s) were taken. Technologist: Ely Millan, Technologist FINDINGS: The breast tissue is extremely dense which could obscure a lesion on mammography. There is no evidence of cancer on this mammogram. Assessment: BI-RADS/ACR category 2 mammogram. Benign Findings. Recommendation Routine screening mammogram of both breasts in 1 year (for women over age 40). This mammogram was interpreted with the aid of an FDA-approved computer-aided dectection system. THE LIFETIME RISK OF BREAST CANCER IS 24.8%, THEREFORE SUPPLEMENTAL SCREENING MRI OF THE BREASTS IS RECOMMENDED. Electronically Signed By: Raymond Jonas MD 10/06/18 1300
== END ==
LOC: M WHC 10:47
PROVIDERS: ATTEND Nurse Practitioner Women's Health
DX: Z12.31 Encounter for screening mammogram for malignant neoplasm of breast (principal); Z80.3 Family history of malignant neoplasm of breast

== ENCOUNTER 2018-10-08 10:34 | Day surgery (SDC) | payer MEDICAID ==
[~2018-10-08] VITALS: Ht 170.2 cm; Wt 146.5 kg
[~2018-10-08 10:34] MED LIST changes: +NS 1,000 ML IV ONE
[2018-10-08] MEDS ORDERED: fentaNYL 100 MCG/2 ML INJECTION (J3010) As Ordered ONE (12:42)
[2018-10-08] MEDS ORDERED: PROPOFOL 500 MG/50 ML VIAL As Ordered ONE (12:42)
[2018-10-08] MEDS ORDERED: PROPOFOL 200 MG/20 ML VIAL As Ordered ONE ×2 (12:42→12:57)
[2018-10-08] MEDS ORDERED: LIDOCAINE 2% INJ 100 MG/5 ML SDV (FOR ANES.) As Ordered ONE (12:42)
--- NOTE | 2018-10-08 12:51 | ROOR ---
Patient Name: Dunia Rodriges Procedure Date: 10/08/2018 12:34 PM Date of : 1980 Age: 37 Room: [facility] Gender: Female Note Status: Finalized Procedure: Upper GI endoscopy Indications: Abdominal pain, Diarrhea Providers: Maynor LAW MD Referring MD: Jacey Padilla MD Requesting Provider: Medicines: Monitored Anesthesia Care Complications: No immediate complications. Procedure: Pre-Anesthesia Assessment: - The heart rate, respiratory rate, oxygen saturations, blood pressure, adequacy of pulmonary ventilation, and response to care were monitored throughout the procedure. The Endoscope was introduced through the mouth, and advanced to the third part of duodenum. The upper GI endoscopy was accomplished without difficulty. The patient tolerated the procedure well. Findings: The esophagus was normal. The stomach was normal. The examined duodenum was normal. Biopsies for histology were taken with a cold forceps in the second portion of the duodenum and in the third portion of the duodenum for evaluation of celiac disease. Impression: - Normal esophagus. - Normal stomach. - Normal examined duodenum. - Biopsies were taken with a cold forceps for evaluation of celiac disease. Recommendation: - Continue present medications. - Telephone endoscopist for pathology results in 2 weeks. Maynor Law MD Maynor LAW MD 10/08/2018 12:51:16 PM Electronically signed by Maynor LAW MD Number of Addenda: 0 Note Initiated On: 10/08/2018 12:34 PM Estimated Blood Loss: Estimated blood loss: none.
--- NOTE | 2018-10-08 13:03 | ROOR ---
Patient Name: Dunia Rodriges Procedure Date: 10/08/2018 12:35 PM Date of : 1980 Age: 37 Room: [facility] Gender: Female Note Status: Finalized Procedure: Colonoscopy Indications: Mixed irritable bowel syndrome, Change in bowel habits Providers: Maynor LAW MD Referring MD: Jacey Padilla MD Requesting Provider: Medicines: Monitored Anesthesia Care Complications: No immediate complications. Procedure: Pre-Anesthesia Assessment: - The heart rate, respiratory rate, oxygen saturations, blood pressure, adequacy of pulmonary ventilation, and response to care were monitored throughout the procedure. The Colonoscope was introduced through the anus and advanced to 10 cm into the ileum. The colonoscopy was performed without difficulty. The patient tolerated the procedure well. The quality of the bowel preparation was good. Findings: The perianal and digital rectal examinations were normal. Small Internal Hemorrhoids. The entire examined colon appeared normal on direct and retroflexion views. The terminal ileum appeared normal. Biopsies for histology were taken with a cold forceps from the entire colon for evaluation of microscopic colitis. Impression: - Small Internal Hemorrhoids. - The entire examined colon is normal on direct and retroflexion views. - The examined portion of the ileum was normal. - Biopsies were taken with a cold forceps from the entire colon for evaluation of microscopic colitis. Recommendation: - Continue present medications. - Telephone endoscopist for pathology results in 2 weeks. Maynor Law MD Maynor LAW MD 10/08/2018 1:03:15 PM Electronically signed by Maynor LAW MD Number of Addenda: 0 Note Initiated On: 10/08/2018 12:35 PM Estimated Blood Loss: Estimated blood loss: none.
[2018-10-08 13:29] VITALS: BP 141/91
== END 2018-10-08 13:30 | disposition home or self-care (01) ==
LOC: M OPP 10:34
PROVIDERS: ATTEND Internal Medicine Gastroenterology
DX: K58.2 Mixed irritable bowel syndrome (principal); R19.4 Change in bowel habit; K64.8 Other hemorrhoids; R10.9 Unspecified abdominal pain; R19.7 Diarrhea, unspecified
CPT/HCPCS: 43239; 45380; 88305; J3010

== ENCOUNTER 2018-11-07 06:00 | Emergency (ER) | payer MEDICAID ==
[~2018-11-07] VITALS: Ht 170.2 cm; Wt 145.4 kg
[~2018-11-07 06:00] MED LIST changes: -NS 1,000 ML IV ONE
[2018-11-07] MEDS ORDERED: NS 1,000 ML IV ONE (07:15)
[2018-11-07] MEDS ORDERED: dexameTHASONE 4 MG/ML 1ML VIAL (J1100) IV ONE (07:15)
[2018-11-07] MEDS ORDERED: diphenhydrAMINE INJ 50MG/ML VIAL (J1200) IV ONE (07:15)
[2018-11-07] MEDS ORDERED: METOCLOPRAMIDE INJ 10MG/2ML VIAL (J2765) IV ONE (07:15)
[2018-11-07] MEDS ORDERED: BUPIVACAINE HCL 0.25% 10 ML VIAL SC ONE (07:15)
[2018-11-07] MEDS ORDERED: MORPHINE 4 MG/ML 1ML VIAL/SYRINGE (J2270) IV PRN (08:45)
[2018-11-07 09:58] VITALS: BP 123/59
== END 2018-11-07 10:18 | disposition home or self-care (01) ==
LOC: M ED 06:00
DX: G43.909 Migraine, unspecified, not intractable, without status migrainosus (principal); K64.9 Unspecified hemorrhoids; K58.9 Irritable bowel syndrome, unspecified; E11.9 Type 2 diabetes mellitus without complications; M54.30 Sciatica, unspecified side; F42.9 Obsessive-compulsive disorder, unspecified; J45.909 Unspecified asthma, uncomplicated; Z87.442 Personal history of urinary calculi; Z79.84 Long term (current) use of oral hypoglycemic drugs; Z79.899 Other long term (current) drug therapy; Z88.8 Allergy status to other drugs, medicaments and biological substances; Z91.02 Food additives allergy status
CPT/HCPCS: 96361; 96374; 96375; 99284; J1100; J1200; J2270; J2765

== ENCOUNTER 2019-02-15 19:01 | Emergency (ER) | payer MEDICAID ==
[~2019-02-15] VITALS: Ht 170.2 cm; Wt 149.6 kg
[~2019-02-15 19:01] MED LIST changes: +METF-791 PO; -METF500T4 PO
[2019-02-15] MEDS ORDERED: MORPHINE 10 MG/ML 1ML VIAL (J2270) IM ONE (19:30)
[2019-02-15] MEDS ORDERED: OXYCODONE/APAP 5MG/325MG(BULK FOR ED) 1 TABLET PO ONE (21:15)
[2019-02-15 21:16] VITALS: BP 135/75
--- NOTE | 2019-02-16 07:46 | REP ---
Clinical: Trauma. Technique: Portable AP, lateral, bilateral oblique views of the right hand. Findings: Eight 2 mm round foreign bodies identified in the subcutaneous tissue adjacent to the fifth digit proximal phalanx with mild swelling. No acute fracture or dislocation appreciated Impression: Foreign body. Mild swelling. Electronically Signed by Rick Hurt MD 02/16/2019 07:37 A
--- NOTE | 2019-02-16 07:49 | REP ---
Clinical: Trauma. Technique: Portable AP and lateral views of the right forearm. Findings: No acute fracture or dislocation. No subcutaneous emphysema or foreign body. Impression: No acute fracture or dislocation. Electronically Signed by Rick Hurt MD 02/16/2019 07:40 A
--- NOTE | 2019-02-16 15:03 | ED PDOC ---
Post-Departure Follow-Up supercharger mechanickermit montejo to call pt, review xray, and to katherine pollard. report of right hand film faxed to latrice. Devorah Blanco MD Feb 16, 2019 15:03
== END 2019-02-15 21:27 | disposition home or self-care (01) ==
LOC: M ED 19:01
DX: S60.221A Contusion of right hand, initial encounter (principal); V86.99XA Unspecified occupant of other special all-terrain or other off-road motor vehicle injured in nontraffic accident, initial encounter; Y92.410 Unspecified street and highway as the place of occurrence of the external cause; E11.9 Type 2 diabetes mellitus without complications; F33.9 Major depressive disorder, recurrent, unspecified; F41.1 Generalized anxiety disorder; F42.9 Obsessive-compulsive disorder, unspecified; G43.909 Migraine, unspecified, not intractable, without status migrainosus; Z79.899 Other long term (current) drug therapy; Z79.84 Long term (current) use of oral hypoglycemic drugs; Z88.8 Allergy status to other drugs, medicaments and biological substances; Z91.048 Other nonmedicinal substance allergy status
CPT/HCPCS: 73090; 73130; 96372; 99284; J2270

== ENCOUNTER 2019-04-06 20:01 | Emergency (ER) | payer MEDICAID ==
[~2019-04-06] VITALS: Ht 170.2 cm; Wt 148.2 kg
[2019-04-06 20:02] VITALS: BP 132/89
== END 2019-04-06 23:17 | disposition left against medical advice (07) ==
LOC: M ED 20:01
DX: Z53.21 Procedure and treatment not carried out due to patient leaving prior to being seen by health care provider (principal)

== ENCOUNTER 2019-05-01 10:56 | Emergency (ER) | payer MEDICAID ==
[~2019-05-01] VITALS: Ht 170.2 cm; Wt 136.4 kg
[2019-05-01] MEDS ORDERED: LISI10TA4 (11:03)
[2019-05-01] MEDS ORDERED: NS 1,000 ML IV ONE (11:30)
[2019-05-01 11:43] LABS: BASO % 0.5 % (0.0-1.0); EOS # 0.1 10^3/uL (0.0-0.5); EOS % 1.4 % (0.0-3.0); HEMATOCRIT 38.4 % (36.0-47.0); HEMOGLOBIN 11.9 g/dl (12.0-15.5); LYMPH # 1.9 10^3/uL (1.5-5.0); LYMPH % 27.9 % (24.0-44.0); MEAN CORPUSCULAR HEMOGLOBIN 27.4 pg (27.0-33.0); MEAN CORPUSCULAR VOLUME 88.3 fl (80.0-96.0); MONO # 0.4 10^3/uL (0.0-0.8); MONO % 5.7 % (0.0-5.0); NEUTROPHILS # 4.3 10^3/uL (1.5-8.5); NEUTROPHILS % 64.3 % (36.0-66.0); PLATELET COUNT, AUTOMATED 220 10^3/uL (150-450); RED BLOOD COUNT 4.35 10^6/uL (4.00-5.40); WHITE BLOOD COUNT 6.7 10^3/uL (4.0-10.0)
[2019-05-01] MEDS ORDERED: METOCLOPRAMIDE INJ 10MG/2ML VIAL (J2765) IV ONE (12:00)
[2019-05-01] MEDS ORDERED: ACETAMINOPHEN 325 MG TAB PO ONE (12:00)
[2019-05-01 12:06] LABS: BLOOD UREA NITROGEN 14 MG/DL (7-18); C REACTIVE PROTEIN QUANTITATIV 1.07 MG/DL (0.00-0.30); CALCIUM LEVEL 8.6 MG/DL (8.5-10.1); CARBON DIOXIDE LEVEL 26 MEQ/L (21-32); CHLORIDE LEVEL 108 MEQ/L (98-107); CREATININE FOR GFR 0.74 MG/DL (0.55-1.30); GLOMERULAR FILTRATION RATE > 60.0 (>60); GLUCOSE, FASTING 171 MG/DL (70-100); POTASSIUM SERUM 4.3 MEQ/L (3.5-5.1); SODIUM LEVEL 141 MEQ/L (136-145)
[2019-05-01] MEDS ORDERED: diphenhydrAMINE INJ 50MG/ML VIAL (J1200) IV STA (12:16)
[2019-05-01] MEDS ORDERED: dexameTHASONE 20 MG/5 ML VIAL (J1100) IV ONE (12:30)
[2019-05-01 13:18] LABS: ERYTHROCYTE SEDIMENTATION RATE 21 mm/hr (0-20)
[2019-05-01] MEDS ORDERED: MORPHINE 4 MG/ML 1ML VIAL/SYRINGE (J2270) IV ONE (13:30)
[2019-05-01] MEDS ORDERED: MORPHINE 2 MG/ML 1ML VIAL (J2270) IV ONE (15:00)
[2019-05-01 15:46] VITALS: BP 141/81
--- NOTE | 2019-05-02 06:47 | REP ---
CT brain without contrast: History: Intractable migraine. Comparison CT study is from July 16, 2009. CT findings: The digital preliminary principal network architect view is unremarkable. The bony calvarium is intact. There is no intraorbital abnormality. Visualized paranasal sinuses are clear. On soft tissue window settings, the lateral, third, and fourth ventricles are normal in size and position. Jonas-white differentiation pattern is normal above below the tentorium. There is no evidence of intracranial hemorrhage. No infarct, mass, extra-axial fluid collection, or midline shift is seen. Impression: Negative noncontrast head CT. Electronically Signed by Seth Webber MD 05/02/2019 08:35 A
== END 2019-05-01 15:48 | disposition home or self-care (01) ==
LOC: M ED 10:56
DX: G43.909 Migraine, unspecified, not intractable, without status migrainosus (principal); I10 Essential (primary) hypertension; Z79.899 Other long term (current) drug therapy; Z88.8 Allergy status to other drugs, medicaments and biological substances; Z91.018 Allergy to other foods
CPT/HCPCS: 70450; 80048; 84702; 85025; 85652; 86140; 96361; 96374; 96375; 96376; 99284; J1100; J1200; J2270; J2765

== ENCOUNTER → 2019-05-11 | Outpatient (CLI) | payer MEDICAID ==
[~2019-05-11] MED LIST changes: +LISI10TA4
[2019-05-11 10:31] LABS: APPEARANCE, URINE CLEAR (CLEAR); BACTERIA, URINE AUTO NEGATIVE (NEGATIVE); BILIRUBIN, URINE AUTO NEGATIVE (NEGATIVE); BLOOD, URINE BLOOD 2+ (NEGATIVE); COLOR, URINE YELLOW (YELLOW); GLUCOSE, URINE (UA) AUTO NEGATIVE (NEGATIVE); KETONE, URINE AUTO NEGATIVE (NEGATIVE); LEUKOCYTE ESTERASE, URINE AUTO TRACE (NEGATIVE); MUCUS, URINE SMALL (NEGATIVE); NITRITE, URINE AUTO NEGATIVE (NEGATIVE); PROTEIN, URINE AUTO NEGATIVE (NEGATIVE); RBC, URINE AUTO 9 /HPF (0-3); SPECIFIC GRAVITY URINE AUTO 1.023 (1.002-1.035); SQUAMOUS EPITHELIAL CELL UR AU 1 /HPF (0-6); UROBILINOGEN, URINE AUTO 0.2 mg/dL (0.0-2.0); WBC, URINE AUTO 7 /HPF (0-3)
[2019-05-11 10:47] LABS: HEMOGLOBIN A1c 7.2 %
[2019-05-11 10:59] LABS: ALBUMIN 3.6 GM/DL (3.2-5.2); ALT/SGPT 39 U/L (12-78); BILIRUBIN,TOTAL 0.3 MG/DL (0.2-1.0); BLOOD UREA NITROGEN 16 MG/DL (7-18); CARBON DIOXIDE LEVEL 26 MEQ/L (21-32); CHLORIDE LEVEL 105 MEQ/L (98-107); CHOLESTEROL LEVEL 187 MG/DL (<200); CHOLESTEROL RISK RATIO 5.054 (<5); GLOMERULAR FILTRATION RATE > 60.0 (>60); GLUCOSE, FASTING 141 MG/DL (70-100); HDL CHOLESTEROL 37 MG/DL (>40); LDL CHOLESTEROL 90 MG/DL (<100); NON-HDL-C 150 MG/DL; POTASSIUM SERUM 4.5 MEQ/L (3.5-5.1); SODIUM LEVEL 138 MEQ/L (136-145); TOTAL PROTEIN 6.8 GM/DL (6.4-8.2); TRIGLYCERIDES LEVEL 302 MG/DL (<150); VALPROIC ACID (DEPAKOTE) 13.4 UG/ML (50.0-100.0)
[2019-05-11 11:04] LABS: MALB URINE SIEMENS 21.8 MG/L; MAU/CREAT RATIO 12.1 MCG/MG (0.0-30.0)
== END ==
LOC: M LAB 09:56
PROVIDERS: ATTEND Family Medicine
DX: Z13.220 Encounter for screening for lipoid disorders (principal); E11.9 Type 2 diabetes mellitus without complications; R80.9 Proteinuria, unspecified; R31.29 Other microscopic hematuria; Z51.81 Encounter for therapeutic drug level monitoring; I10 Essential (primary) hypertension

== ENCOUNTER → 2019-05-11 | Outpatient (CLI) | payer MEDICAID | LOC: M RAD 09:08 | PROVIDERS: ATTEND Nurse Practitioner Family | DX: Z12.39 Encounter for other screening for malignant neoplasm of breast (principal); Z80.3 Family history of malignant neoplasm of breast; Z53.9 Procedure and treatment not carried out, unspecified reason ==

== ENCOUNTER 2019-05-20 14:02 | Emergency (ER) | payer MEDICAID ==
[~2019-05-20] VITALS: Ht 170.2 cm; Wt 145.6 kg
[2019-05-20] MEDS ORDERED: ACETAMINOPHEN 500 MG TAB PO ONE (14:30)
[2019-05-20] MEDS ORDERED: KETOROLAC 30 MG/ML VIAL (J1885) IV ONE (14:30)
[2019-05-20 15:02] LABS: BASO % 0.5 % (0.0-1.0); EOS # 0.1 10^3/uL (0.0-0.5); EOS % 1.2 % (0.0-3.0); HEMATOCRIT 41.3 % (36.0-47.0); LYMPH # 1.3 10^3/uL (1.5-5.0); MEAN CORPUSCULAR HEMOGLOBIN 27.3 pg (27.0-33.0); MEAN CORPUSCULAR HGB CONC 31.5 g/dl (32.0-36.5); MEAN CORPUSCULAR VOLUME 86.6 fl (80.0-96.0); MONO # 0.6 10^3/uL (0.0-0.8); MONO % 7.9 % (0.0-5.0); NEUTROPHILS # 5.4 10^3/uL (1.5-8.5); NEUTROPHILS % 71.9 % (36.0-66.0); PLATELET COUNT, AUTOMATED 243 10^3/uL (150-450); RED BLOOD COUNT 4.77 10^6/uL (4.00-5.40); WHITE BLOOD COUNT 7.5 10^3/uL (4.0-10.0)
[2019-05-20 15:09] VITALS: BP 125/76
[2019-05-20] MEDS ORDERED: ONDANSETRON 4MG/2ML VIAL (J2405) IV ONE (15:15)
[2019-05-20 15:29] LABS: ALBUMIN 3.8 GM/DL (3.2-5.2); ALT/SGPT 61 U/L (12-78); BILIRUBIN,DIRECT 0.2 MG/DL (0.0-0.2); BILIRUBIN,TOTAL 0.6 MG/DL (0.2-1.0); BLOOD UREA NITROGEN 15 MG/DL (7-18); CALCIUM LEVEL 8.9 MG/DL (8.5-10.1); CARBON DIOXIDE LEVEL 25 MEQ/L (21-32); CHLORIDE LEVEL 105 MEQ/L (98-107); CREATININE FOR GFR 0.85 MG/DL (0.55-1.30); GLOMERULAR FILTRATION RATE > 60.0 (>60); GLUCOSE, FASTING 118 MG/DL (70-100); LIPASE 121 U/L (73-393); POTASSIUM SERUM 4.1 MEQ/L (3.5-5.1); SODIUM LEVEL 138 MEQ/L (136-145); TOTAL PROTEIN 7.4 GM/DL (6.4-8.2)
--- NOTE | 2019-05-20 15:50 | REP ---
Clinical: Left flank pain. Technique: Axial noncontrast images from the lung bases to the pubic symphysis with coronal and sagittal re-formations. Findings: Fatty infiltration of the liver. Spleen, pancreas, bilateral adrenal glands and right kidney are normal. Left kidney includes approximately three small calcifications up to 3 mm without hydronephrosis or perinephric stranding. The enteric system is without obstruction or acute inflammatory process. Pelvis demonstrates normal bladder and age-appropriate uterus/adnexa with IUD in satisfactory position. No ascites. No free air. No adenopathy. Abdominal aorta without aneurysm. Musculoskeletal structures are intact. Impression: 1. Left-sided nephroliths up to 3 mm. No obstructive uropathy. Normal right kidney and bladder. 2. No acute abdominopelvic pathology appreciated. 3. Hepatic steatosis. Electronically Signed by Rick Hurt MD 05/20/2019 03:41 P
[2019-05-20] MEDS ORDERED: KETAMINE HCL IV ONE (16:15)
[2019-05-20] MEDS ORDERED: NS IV ONE (16:15)
[2019-05-20] MEDS ORDERED: MACR100C43 PO (16:43)
== END 2019-05-20 17:38 | disposition home or self-care (01) ==
LOC: M ED 14:02
DX: N39.0 Urinary tract infection, site not specified (principal); N20.0 Calculus of kidney; E11.9 Type 2 diabetes mellitus without complications; F32.9 Major depressive disorder, single episode, unspecified; F41.9 Anxiety disorder, unspecified; I10 Essential (primary) hypertension; K21.9 Gastro-esophageal reflux disease without esophagitis; K76.0 Fatty (change of) liver, not elsewhere classified; M54.30 Sciatica, unspecified side; Z79.84 Long term (current) use of oral hypoglycemic drugs; Z79.899 Other long term (current) drug therapy; Z88.6 Allergy status to analgesic agent; Z91.02 Food additives allergy status
CPT/HCPCS: 74176; 80048; 80076; 81001; 83690; 84702; 85025; 87086; 96374; 96375; 99284; J1885; J2405

== ENCOUNTER 2019-05-22 09:45 | Emergency (ER) | payer MEDICAID ==
[~2019-05-22] VITALS: Ht 170.2 cm; Wt 145.9 kg
[~2019-05-22 09:45] MED LIST changes: +MACR100C43 PO
[2019-05-22] MEDS ORDERED: NS 1,000 ML IV ONE (10:15)
[2019-05-22 10:40] LABS: BASO % 0.6 % (0.0-1.0); EOS % 0.6 % (0.0-3.0); HEMATOCRIT 40.6 % (36.0-47.0); HEMOGLOBIN 12.5 g/dl (12.0-15.5); LYMPH # 1.4 10^3/uL (1.5-5.0); LYMPH % 27.2 % (24.0-44.0); MEAN CORPUSCULAR HEMOGLOBIN 26.9 pg (27.0-33.0); MEAN CORPUSCULAR HGB CONC 30.8 g/dl (32.0-36.5); MEAN CORPUSCULAR VOLUME 87.3 fl (80.0-96.0); MONO # 0.6 10^3/uL (0.0-0.8); MONO % 11.3 % (0.0-5.0); NEUTROPHILS # 3.1 10^3/uL (1.5-8.5); NEUTROPHILS % 59.9 % (36.0-66.0); PLATELET COUNT, AUTOMATED 223 10^3/uL (150-450); RED BLOOD COUNT 4.65 10^6/uL (4.00-5.40); WHITE BLOOD COUNT 5.1 10^3/uL (4.0-10.0)
[2019-05-22 11:00] LABS: ALBUMIN 3.7 GM/DL (3.2-5.2); ALT/SGPT 72 U/L (12-78); BILIRUBIN,DIRECT 0.1 MG/DL (0.0-0.2); BILIRUBIN,TOTAL 0.4 MG/DL (0.2-1.0); BLOOD UREA NITROGEN 11 MG/DL (7-18); CALCIUM LEVEL 8.5 MG/DL (8.5-10.1); CARBON DIOXIDE LEVEL 23 MEQ/L (21-32); CHLORIDE LEVEL 109 MEQ/L (98-107); GLOMERULAR FILTRATION RATE > 60.0 (>60); GLUCOSE, FASTING 156 MG/DL (70-100); LIPASE 126 U/L (73-393); POTASSIUM SERUM 3.9 MEQ/L (3.5-5.1); SODIUM LEVEL 140 MEQ/L (136-145); TOTAL PROTEIN 7.1 GM/DL (6.4-8.2)
[2019-05-22] MEDS ORDERED: KETOROLAC 30 MG/ML VIAL (J1885) IV ONE (11:15)
[2019-05-22] MEDS ORDERED: ACETAMINOPHEN 500 MG TAB PO ONE (11:45)
[2019-05-22 11:51] VITALS: BP 119/59
== END 2019-05-22 11:57 | disposition left against medical advice (07) ==
LOC: M ED 09:45
DX: M54.5 Low back pain (principal); E11.9 Type 2 diabetes mellitus without complications; F32.9 Major depressive disorder, single episode, unspecified; F41.9 Anxiety disorder, unspecified; I10 Essential (primary) hypertension; Z53.20 Procedure and treatment not carried out because of patient's decision for unspecified reasons; Z88.8 Allergy status to other drugs, medicaments and biological substances; Z91.02 Food additives allergy status
CPT/HCPCS: 80048; 80076; 81001; 83690; 84702; 85025; 87086; 99284; J1885

== ENCOUNTER 2019-08-06 08:42 | Emergency (ER) | payer MEDICAID ==
[~2019-08-06] VITALS: Ht 170.2 cm; Wt 145.7 kg
[~2019-08-06 08:42] MED LIST changes: -TRAZ-163 PO; +TRAZ-257 PO
[2019-08-06] MEDS ORDERED: KETOROLAC TROMETHAMINE 10 MG TAB PO ONE (10:00)
[2019-08-06] MEDS ORDERED: IBUP80TA PO (10:17)
[2019-08-06 10:32] VITALS: BP 124/81
--- NOTE | 2019-08-06 11:13 | REP ---
Left knee five views: Comparison is 05/02/2011. There is tricompartment osteoarthritis as an interval change. There is a joint effusion/hemarthrosis as an interval change. There is no fracture or dislocation. No calcifications or foreign bodies. Electronically Signed by Raymond Bertrand MD 08/06/2019 11:04 A
== END 2019-08-06 10:33 | disposition home or self-care (01) ==
LOC: M ED 08:42
DX: M17.12 Unilateral primary osteoarthritis, left knee (principal); M25.462 Effusion, left knee; E11.9 Type 2 diabetes mellitus without complications; I10 Essential (primary) hypertension; E78.5 Hyperlipidemia, unspecified; K21.9 Gastro-esophageal reflux disease without esophagitis; F33.9 Major depressive disorder, recurrent, unspecified; F41.9 Anxiety disorder, unspecified; G43.909 Migraine, unspecified, not intractable, without status migrainosus; Z79.899 Other long term (current) drug therapy; Z79.84 Long term (current) use of oral hypoglycemic drugs; Z88.8 Allergy status to other drugs, medicaments and biological substances

== ENCOUNTER → 2019-10-10 | Outpatient (REF) | payer MEDICAID ==
[~2019-10-10] MED LIST changes: +IBUP80TA PO
[2019-10-10 17:42] LABS: APPEARANCE, URINE CLOUDY (CLEAR); BACTERIA, URINE AUTO 1+ (NEGATIVE); BILIRUBIN, URINE AUTO NEGATIVE (NEGATIVE); BLOOD, URINE BLOOD 3+ (NEGATIVE); CALCIUM OXALATE CRYSTALS LARGE; COLOR, URINE YELLOW (YELLOW); GLUCOSE, URINE (UA) AUTO NEGATIVE (NEGATIVE); KETONE, URINE AUTO NEGATIVE (NEGATIVE); LEUKOCYTE ESTERASE, URINE AUTO 2+ (NEGATIVE); MUCUS, URINE SMALL (NEGATIVE); NITRITE, URINE AUTO NEGATIVE (NEGATIVE); PROTEIN, URINE AUTO NEGATIVE (NEGATIVE); RBC, URINE AUTO 14 /HPF (0-3); SPECIFIC GRAVITY URINE AUTO 1.023 (1.002-1.035); SQUAMOUS EPITHELIAL CELL UR AU 1 /HPF (0-6); UROBILINOGEN, URINE AUTO 0.2 mg/dL (0.0-2.0); WBC, URINE AUTO 22 /HPF (0-3)
[2019-10-10 18:02] LABS: HEMOGLOBIN A1c 6.8 %
[2019-10-10 18:09] LABS: ALBUMIN 3.7 GM/DL (3.2-5.2); ALT/SGPT 31 U/L (12-78); BILIRUBIN,TOTAL 0.3 MG/DL (0.2-1.0); BLOOD UREA NITROGEN 11 MG/DL (7-18); CALCIUM LEVEL 9.2 MG/DL (8.5-10.1); CARBON DIOXIDE LEVEL 22 MEQ/L (21-32); CHLORIDE LEVEL 108 MEQ/L (98-107); CREATININE FOR GFR 0.65 MG/DL (0.55-1.30); GLOMERULAR FILTRATION RATE > 60.0 (>60); GLUCOSE, FASTING 95 MG/DL (70-100); POTASSIUM SERUM 4.5 MEQ/L (3.5-5.1); SODIUM LEVEL 138 MEQ/L (136-145); TOTAL PROTEIN 7.5 GM/DL (6.4-8.2)
== END ==
LOC: M SFHCPLAZ 15:19
PROVIDERS: ATTEND Family Medicine
DX: E11.9 Type 2 diabetes mellitus without complications (principal); K75.81 Nonalcoholic steatohepatitis (NASH)

== ENCOUNTER 2020-04-11 13:31 | Emergency (ER) | payer MEDICAID ==
[~2020-04-11] VITALS: Ht 170.2 cm; Wt 149.8 kg
[~2020-04-11 13:31] MED LIST changes: +ACET650T61 PO; -METF-791 PO; +METF-838 PO; +PANT40TA29; +PANT40TA29 PO; -PANT40TA3; -PANT40TA3 PO; -TYLE650T35 PO
[2020-04-11] MEDS ORDERED: ACET-897 PO (13:41)
[2020-04-11] MEDS ORDERED: MAXA10TA14 PO (13:41)
[2020-04-11] MEDS ORDERED: NS 1,000 ML IV ONE (14:15)
[2020-04-11] MEDS ORDERED: KETOROLAC 30 MG/ML 1ML VIAL IV ONE (14:15)
[2020-04-11] MEDS ORDERED: PROMETHAZINE INJ 25 MG/ML VIAL (J2550) IV ONE (14:15)
[2020-04-11] MEDS ORDERED: ACETAMINOPHEN 500 MG TAB PO ONE (14:15)
[2020-04-11] MEDS ORDERED: dexameTHASONE 4 MG/ML 1ML VIAL (J1100 PER 1MG) IV ONE (15:15)
[2020-04-11] MEDS ORDERED: diphenhydrAMINE 50MG/ML VIAL (J1200) IV ONE (15:45)
[2020-04-11 16:34] VITALS: BP 135/73
== END 2020-04-11 16:44 | disposition home or self-care (01) ==
LOC: M ED 13:31
DX: G43.909 Migraine, unspecified, not intractable, without status migrainosus (principal); E11.9 Type 2 diabetes mellitus without complications; I10 Essential (primary) hypertension; E78.5 Hyperlipidemia, unspecified; F33.9 Major depressive disorder, recurrent, unspecified; F41.9 Anxiety disorder, unspecified; F42.9 Obsessive-compulsive disorder, unspecified; K21.9 Gastro-esophageal reflux disease without esophagitis; K58.9 Irritable bowel syndrome, unspecified; M54.30 Sciatica, unspecified side; Z79.899 Other long term (current) drug therapy; Z79.84 Long term (current) use of oral hypoglycemic drugs; Z88.8 Allergy status to other drugs, medicaments and biological substances; Z91.018 Allergy to other foods
CPT/HCPCS: 80047; 84702; 96361; 96374; 96375; 99284; J1100; J1200; J1885

== ENCOUNTER → 2020-04-26 | Outpatient (REF) | payer MEDICAID ==
[~2020-04-26] MED LIST changes: +ACET-897 PO; +MAXA10TA14 PO
== END ==
LOC: M SFHCWAGY 17:25
PROVIDERS: ATTEND Nurse Practitioner Women's Health
DX: Z12.4 Encounter for screening for malignant neoplasm of cervix (principal); Z01.419 Encounter for gynecological examination (general) (routine) without abnormal findings

== ENCOUNTER → 2020-05-30 | Outpatient (REF) | payer MEDICAID ==
[2020-05-30 14:05] LABS: BASO # 0.1 10^3/uL (0.0-0.2); BASO % 0.6 % (0.0-1.0); EOS # 0.1 10^3/uL (0.0-0.5); HEMOGLOBIN 12.6 g/dl (12.0-15.5); LYMPH # 2.7 10^3/uL (1.5-5.0); LYMPH % 25.5 % (24.0-44.0); MEAN CORPUSCULAR HEMOGLOBIN 25.9 pg (27.0-33.0); MEAN CORPUSCULAR HGB CONC 30.7 g/dl (32.0-36.5); MEAN CORPUSCULAR VOLUME 84.2 fl (80.0-96.0); MONO # 0.6 10^3/uL (0.0-0.8); MONO % 5.6 % (0.0-5.0); NEUTROPHILS # 7.1 10^3/uL (1.5-8.5); NEUTROPHILS % 66.8 % (36.0-66.0); PLATELET COUNT, AUTOMATED 353 10^3/uL (150-450); RED BLOOD COUNT 4.87 10^6/uL (4.00-5.40); WHITE BLOOD COUNT 10.6 10^3/uL (4.0-10.0)
[2020-05-30 14:18] LABS: ALBUMIN 3.9 GM/DL (3.2-5.2); ALT/SGPT 35 U/L (12-78); BILIRUBIN,TOTAL 0.3 MG/DL (0.2-1.0); BLOOD UREA NITROGEN 15 MG/DL (7-18); CALCIUM LEVEL 9.7 MG/DL (8.5-10.1); CARBON DIOXIDE LEVEL 26 MEQ/L (21-32); CHLORIDE LEVEL 105 MEQ/L (98-107); CHOLESTEROL LEVEL 208 MG/DL (<200); CHOLESTEROL RISK RATIO 5.942 (<5); CREATININE FOR GFR 0.85 MG/DL (0.55-1.30); GLOMERULAR FILTRATION RATE > 60.0 (>60); GLUCOSE, FASTING 130 MG/DL (70-100); HDL CHOLESTEROL 35 MG/DL (>40); LDL CHOLESTEROL 108 MG/DL (<100); NON-HDL-C 173 MG/DL; POTASSIUM SERUM 4.7 MEQ/L (3.5-5.1); SODIUM LEVEL 137 MEQ/L (136-145); TOTAL PROTEIN 7.6 GM/DL (6.4-8.2); TRIGLYCERIDES LEVEL 326 MG/DL (<150)
[2020-05-30 14:40] LABS: MALB URINE SIEMENS 52.8 MG/L; MAU/CREAT RATIO 25.6 MCG/MG (0.0-30.0)
[2020-05-30 14:44] LABS: HEMOGLOBIN A1c 6.4 %
== END ==
LOC: M PLALAB 10:59
PROVIDERS: ATTEND Family Medicine
DX: G43.101 Migraine with aura, not intractable, with status migrainosus (principal); K75.81 Nonalcoholic steatohepatitis (NASH); I10 Essential (primary) hypertension; E11.9 Type 2 diabetes mellitus without complications; E78.1 Pure hyperglyceridemia

== ENCOUNTER → 2020-07-16 | Outpatient (REF) | payer MEDICAID | LOC: M SFHCWAGY 16:39 | PROVIDERS: ATTEND Nurse Practitioner Women's Health | DX: M54.5 Low back pain (principal); R10.2 Pelvic and perineal pain ==

== ENCOUNTER → 2020-07-25 | Outpatient (REF) | payer MEDICAID ==
[~2020-07-25] MED LIST changes: +LISI10TA22; -LISI10TA4; -QUET1TAB7 PO; +QUET25TA3 PO
[2020-07-25 11:54] LABS: APPEARANCE, URINE CLEAR (CLEAR); BACTERIA, URINE AUTO NEGATIVE (NEGATIVE); BILIRUBIN, URINE AUTO NEGATIVE (NEGATIVE); BLOOD, URINE BLOOD NEGATIVE (NEGATIVE); COLOR, URINE YELLOW (YELLOW); GLUCOSE, URINE (UA) AUTO NEGATIVE (NEGATIVE); KETONE, URINE AUTO NEGATIVE (NEGATIVE); LEUKOCYTE ESTERASE, URINE AUTO TRACE (NEGATIVE); MUCUS, URINE SMALL (NEGATIVE); NITRITE, URINE AUTO NEGATIVE (NEGATIVE); PROTEIN, URINE AUTO NEGATIVE (NEGATIVE); RBC, URINE AUTO 4 /HPF (0-3); SPECIFIC GRAVITY URINE AUTO 1.018 (1.002-1.035); SQUAMOUS EPITHELIAL CELL UR AU 3 /HPF (0-6); UROBILINOGEN, URINE AUTO 0.2 mg/dL (0.0-2.0); WBC, URINE AUTO 2 /HPF (0-3)
== END ==
LOC: M SFHCPLAZ 11:40
PROVIDERS: ATTEND Family Medicine
DX: R30.0 Dysuria (principal)

== ENCOUNTER 2020-08-24 10:51 | Emergency (ER) | payer MEDICAID ==
[~2020-08-24] VITALS: Ht 170.2 cm; Wt 145.3 kg
[~2020-08-24 10:51] MED LIST changes: +GLYB2.5T7 PO; -GLYB25TA PO
[2020-08-24 11:49] LABS: BASO % 0.5 % (0.0-1.0); EOS # 0.1 10^3/uL (0.0-0.5); EOS % 0.9 % (0.0-3.0); HEMATOCRIT 37.3 % (36.0-47.0); HEMOGLOBIN 11.6 g/dl (12.0-15.5); LYMPH # 2.1 10^3/uL (1.5-5.0); LYMPH % 28.5 % (24.0-44.0); MEAN CORPUSCULAR HEMOGLOBIN 25.7 pg (27.0-33.0); MEAN CORPUSCULAR HGB CONC 31.1 g/dl (32.0-36.5); MEAN CORPUSCULAR VOLUME 82.7 fl (80.0-96.0); MONO # 0.5 10^3/uL (0.0-0.8); MONO % 6.2 % (2.0-8.0); NEUTROPHILS # 4.7 10^3/uL (1.5-8.5); NEUTROPHILS % 63.4 % (36.0-66.0); PLATELET COUNT, AUTOMATED 236 10^3/uL (150-450); RED BLOOD COUNT 4.51 10^6/uL (4.00-5.40); WHITE BLOOD COUNT 7.4 10^3/uL (4.0-10.0)
[2020-08-24 11:58] LABS: INR 1.02; PROTHROMBIN TIME 13.6 SECONDS (12.5-14.3)
[2020-08-24 12:16] LABS: ALBUMIN 3.9 GM/DL (3.2-5.2); ALT/SGPT 36 U/L (12-78); BILIRUBIN,DIRECT 0.1 MG/DL (0.0-0.2); BILIRUBIN,TOTAL 0.3 MG/DL (0.2-1.0); CK-MB VALUE MASS < 1.0 NG/ML (<3.6); CPK CREATINE PHOSPHOKINASE 33 U/L (26-192); LIPASE 144 U/L (73-393); MB/CK RELATIVE INDEX 3.03 (< OR =4); NT-PRO BNP 12 PG/ML (<125); TOTAL PROTEIN 7.3 GM/DL (6.4-8.2); TROPONIN I < 0.02 NG/ML (< 0.10)
[2020-08-24 12:28] LABS: RSV AMPLIFICATION NEGATIVE (NEGATIVE)
[2020-08-24] MEDS ORDERED: ONDANSETRON 4MG/2ML VIAL IV ONE (12:30)
[2020-08-24] MEDS ORDERED: MORPHINE 4 MG/ML 1ML VIAL/SYRINGE (J2270) IV ONE ×2 (12:30→15:25)
--- NOTE | 2020-08-24 12:36 | REP ---
INDICATION: sob COMPARISON: 09/07/2018 TECHNIQUE: Portable AP view of the chest FINDINGS: The mediastinum and cardiac silhouette are stable and within normal limits for portable technique. The lung garland are clear without acute consolidation, effusion, or pneumothorax. Skeletal structures are intact. IMPRESSION: No acute cardiopulmonary process appreciated. <Electronically signed by Rick Hurt > 08/24/20 [id number]
[2020-08-24] MEDS ORDERED: ISOVUE-370 76% 100ML VIAL As Ordered ONE (12:41)
--- NOTE | 2020-08-24 13:13 | REP ---
INDICATION: chest painb, sob, gi bleed COMPARISON: 12/05/2017 TECHNIQUE: Axial contrast enhanced images from the thoracic inlet to the upper abdomen using pulmonary embolus technique with multiplanar re-formations. 75 ml Isovue 370 intravenous contrast material administered without complication. This CT examination was performed using the following dose reduction techniques: Automated exposure control, adjustment of mA and/or kv according to the patient's size, and use of iterative reconstruction technique. FINDINGS: Satisfactory enhancement of the pulmonary vasculature is achieved and no filling defects are identified to suggest pulmonary embolus. Further evaluation of the mediastinum demonstrates normal thoracic aorta, heart and pericardium. The bilateral lung garland are well aerated and clear without consolidation pleural effusion or pneumothorax. Tracheobronchial tree is patent. No nodule or mass lesion is identified. No adenopathy noted. Surrounding musculoskeletal structures intact upper abdomen demonstrates hepatosteatosis. IMPRESSION: No evidence for pulmonary embolus. No acute mediastinal or pleural parenchymal process. <Electronically signed by Rick Hurt > 08/24/20 [id number]
--- NOTE | 2020-08-24 13:15 | REP ---
INDICATION: chest painb, sob, gi bleed. COMPARISON: 05/20/2019 TECHNIQUE: Axial contrast-enhanced images from the lung bases to the pubic symphysis using 100 cc Isovue 370 intravenous contrast material. Coronal and sagittal reformations obtained. This CT examination was performed using the following dose reduction techniques: Automated exposure control, adjustment of mA and/or kv according to the patient's size, and the use of iterative reconstruction technique. FINDINGS: Hepatosteatosis and hepatomegaly noted without focal hepatic lesion. Spleen, pancreas, bilateral adrenal glands and right kidney are normal. Incidental 3 mm nonobstructing left renal calculus. Evidence for prior cholecystectomy noted. The enteric system including stomach, small, and large bowel appears normal. No evidence for obstruction or acute inflammatory process. Normal terminal ileum and cecum are identified in the right lower quadrant. Pelvis demonstrates normal bladder and age-appropriate uterus/adnexa with IUD in satisfactory position No ascites. No free air. No intraperitoneal or retroperitoneal adenopathy. Abdominal aorta and vasculature appear normal. Musculoskeletal structures are intact and without acute osseous abnormality. IMPRESSION: No acute abdominopelvic pathology appreciated. <Electronically signed by Rick Hurt > 08/24/20 1318
[2020-08-24] MEDS ORDERED: GI COCKTAIL 50ML BTL(HYOSCYAMINE/MAALOX/LIDOCAINE VISCOUS)(1:3:1) PO ONE (15:30)
[2020-08-24 17:08] LABS: CK-MB VALUE MASS < 1.0 NG/ML (<3.6); CPK CREATINE PHOSPHOKINASE 29 U/L (26-192); MB/CK RELATIVE INDEX 3.45 (< OR =4); TROPONIN I < 0.02 NG/ML (< 0.10)
[2020-08-24 17:30] VITALS: BP 139/80
--- NOTE | 2020-08-24 18:50 | ECGEPIP ---
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
--- NOTE | 2020-08-24 18:54 | ECGEPIP ---
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
== END 2020-08-24 17:57 | disposition home or self-care (01) ==
LOC: M ED 10:51
DX: K21.9 Gastro-esophageal reflux disease without esophagitis (principal); K92.2 Gastrointestinal hemorrhage, unspecified; E11.9 Type 2 diabetes mellitus without complications; I10 Essential (primary) hypertension; E78.9 Disorder of lipoprotein metabolism, unspecified; F33.9 Major depressive disorder, recurrent, unspecified; F41.9 Anxiety disorder, unspecified; K58.9 Irritable bowel syndrome, unspecified; Z90.49 Acquired absence of other specified parts of digestive tract; Z79.899 Other long term (current) drug therapy; Z79.84 Long term (current) use of oral hypoglycemic drugs; Z88.8 Allergy status to other drugs, medicaments and biological substances; Z91.018 Allergy to other foods
CPT/HCPCS: 71045; 71275; 74177; 80047; 80076; 82550; 82553; 83690; 83880; 84702; 85025; 85610; 86850; 86900; 86901; 87631; 93005; 93041; 96374; 96375; 96376; 99285; J2270; J2405; Q9967

== ENCOUNTER → 2020-11-23 | Outpatient (REF) | payer MEDICAID ==
[2020-11-23 13:00] LABS: APPEARANCE, URINE HAZY (CLEAR); BACTERIA, URINE AUTO 1+ (NEGATIVE); BILIRUBIN, URINE AUTO NEGATIVE (NEGATIVE); BLOOD, URINE BLOOD NEGATIVE (NEGATIVE); COLOR, URINE YELLOW (YELLOW); GLUCOSE, URINE (UA) AUTO NEGATIVE (NEGATIVE); KETONE, URINE AUTO NEGATIVE (NEGATIVE); LEUKOCYTE ESTERASE, URINE AUTO 3+ (NEGATIVE); MUCUS, URINE SMALL (NEGATIVE); NITRITE, URINE AUTO NEGATIVE (NEGATIVE); PROTEIN, URINE AUTO NEGATIVE (NEGATIVE); RBC, URINE AUTO 4 /HPF (0-3); SPECIFIC GRAVITY URINE AUTO 1.015 (1.002-1.035); SQUAMOUS EPITHELIAL CELL UR AU 7 /HPF (0-6); UROBILINOGEN, URINE AUTO 0.2 mg/dL (0.0-2.0); WBC, URINE AUTO 4 /HPF (0-3)
[2020-11-23 15:16] LABS: HEMOGLOBIN A1c 7.3 %
[2020-11-23 15:18] LABS: ALBUMIN 3.8 GM/DL (3.2-5.2); ALT/SGPT 38 U/L (12-78); BILIRUBIN,TOTAL 0.4 MG/DL (0.2-1.0); BLOOD UREA NITROGEN 10 MG/DL (7-18); CALCIUM LEVEL 9.1 MG/DL (8.5-10.1); CARBON DIOXIDE LEVEL 26 MEQ/L (21-32); CHLORIDE LEVEL 104 MEQ/L (98-107); GLOMERULAR FILTRATION RATE > 60.0 (>60); GLUCOSE, FASTING 140 MG/DL (70-100); POTASSIUM SERUM 4.3 MEQ/L (3.5-5.1); SODIUM LEVEL 137 MEQ/L (136-145); TOTAL PROTEIN 7.2 GM/DL (6.4-8.2)
== END ==
LOC: M SFHCPLAZ 11:02
PROVIDERS: ATTEND Family Medicine
DX: I10 Essential (primary) hypertension (principal); K75.81 Nonalcoholic steatohepatitis (NASH); E11.9 Type 2 diabetes mellitus without complications; R31.29 Other microscopic hematuria

== ENCOUNTER → 2020-11-29 | Outpatient (REF) | payer MEDICAID ==
[2020-11-29 13:26] LABS: APPEARANCE, URINE HAZY (CLEAR); BACTERIA, URINE AUTO NEGATIVE (NEGATIVE); BILIRUBIN, URINE AUTO NEGATIVE (NEGATIVE); BLOOD, URINE BLOOD NEGATIVE (NEGATIVE); CALCIUM OXALATE CRYSTALS SMALL; COLOR, URINE YELLOW (YELLOW); GLUCOSE, URINE (UA) AUTO NEGATIVE (NEGATIVE); KETONE, URINE AUTO NEGATIVE (NEGATIVE); LEUKOCYTE ESTERASE, URINE AUTO 1+ (NEGATIVE); MUCUS, URINE SMALL (NEGATIVE); NITRITE, URINE AUTO NEGATIVE (NEGATIVE); PROTEIN, URINE AUTO NEGATIVE (NEGATIVE); RBC, URINE AUTO 2 /HPF (0-3); SPECIFIC GRAVITY URINE AUTO 1.018 (1.002-1.035); SQUAMOUS EPITHELIAL CELL UR AU 3 /HPF (0-6); UROBILINOGEN, URINE AUTO 0.2 mg/dL (0.0-2.0); WBC, URINE AUTO 2 /HPF (0-3)
== END ==
LOC: M SFHCPLAZ 12:56
PROVIDERS: ATTEND Family Medicine
DX: R31.29 Other microscopic hematuria (principal)

== ENCOUNTER → 2021-01-28 | Outpatient (CLI) | payer MEDICAID ==
[~2021-01-28] MED LIST changes: +QUET1TAB17 PO; -QUET25TA3 PO
--- NOTE | 2021-01-28 13:05 | REPMRS ---
Patient History The patient states she has not had a clinical breast exam in over a year. Family history of breast cancer at age 22 in maternal grandmother, breast cancer at age 42 in maternal aunt, colorectal cancer under age 50 in maternal aunt, colorectal cancer under age 50 in maternal aunt, colorectal cancer at age 50 or over and prostate cancer at age 50 or over in paternal grandfather. Patient states no breast complaints today. Patient has signed MRS History Sheet. Digital Woman Screen Mammo: January 28, 2021 - Exam #: [id number] Bilateral CC and MLO view(s) were taken. Technologist: Ele Manning, Technologist Prior study comparison: October 06, 2018, bilateral digital woman screen mammo performed at [facility]. FINDINGS: There are scattered fibroglandular densities. Screening. Digital screening (2D) mammography was performed bilaterally in the CC and MLO projections. Additionally, breast tomosynthesis (3D mammography) was performed bilaterally in the CC and MLO projections. Todays exam was compared to the prior exam/exams. By history, the patient has no complaints of a palpable breast abnormality or other significant breast complaints. The breasts are unchanged in size and shape. There are no ligia-soft tissue densities or spiculated masses. There is no internal architectural distortion. There are no suspicious ligia-calcific clusters. Skin thickening or nipple retraction is not present. IMPRESSION: BI-RADS Category 2- Benign Findings. There is no evidence of malignant alteration of the breasts. Followup examination recommended in one year. The Volpara volumetric breast density category is B, there are scattered areas of fibroglandular densities. This mammogram was read with the assistance of [facility],an FDA approved computer aided detection system for mammography. The lifetime Tyrer-Cuzick score is 24.1 % Due to the density of the breasts or Tyrer Cuzick score of 20% or greater, MRI/whole breast screening ultrasound is warranted. Negative x-ray reports should not delay surgical consultation if a dominant or clinically suspicious mass is present. Not all breast cancers can be identified by mammography. Therefore, we recommend that you continue to perform regular breast self-examination and physical examination and then promptly contact your physician of any concerns or changes. Adenosis and dense breasts may obscure an underlying neoplasm. Assessment: BI-RADS/ACR category 2 mammogram. Benign Findings. Recommendation Routine screening mammogram of both breasts in 1 year. Electronically Signed By: Selvin Garcia DO 01/28/21 [id number]
== END ==
LOC: M WHC 12:13
PROVIDERS: ATTEND Family Medicine
DX: Z12.31 Encounter for screening mammogram for malignant neoplasm of breast (principal)

== ENCOUNTER 2021-02-13 07:09 | Emergency (ER) | payer MEDICAID ==
[~2021-02-13] VITALS: Ht 170.2 cm; Wt 146.8 kg
[~2021-02-13 07:09] MED LIST changes: +VERA180T43 PO; -VERA180T53 PO
[2021-02-13] MEDS ORDERED: IBUPROFEN 800 MG TAB PO ONE (07:55)
[2021-02-13] MEDS ORDERED: AUGM875T28 PO (07:56)
[2021-02-13] MEDS ORDERED: CIPR7.5D5 AD (07:56)
[2021-02-13 08:24] VITALS: BP 134/72
== END 2021-02-13 08:26 | disposition home or self-care (01) ==
LOC: M ED 07:09
DX: H60.331 Swimmer's ear, right ear (principal); H66.91 Otitis media, unspecified, right ear; E11.9 Type 2 diabetes mellitus without complications; F33.9 Major depressive disorder, recurrent, unspecified; F41.9 Anxiety disorder, unspecified; G43.909 Migraine, unspecified, not intractable, without status migrainosus; Z88.8 Allergy status to other drugs, medicaments and biological substances; Z91.018 Allergy to other foods; Z79.899 Other long term (current) drug therapy; Z79.84 Long term (current) use of oral hypoglycemic drugs

== ENCOUNTER 2021-02-15 08:57 | Emergency (ER) | payer MEDICAID ==
[~2021-02-15] VITALS: Ht 170.2 cm; Wt 145.6 kg
[~2021-02-15 08:57] MED LIST changes: +AUGM875T28 PO; +CIPR7.5D5 AD; -VERA180T43 PO; +VERA180T53 PO
[2021-02-15] MEDS ORDERED: MORPHINE 4 MG/ML 1ML VIAL/SYRINGE (J2270) IV ONE (10:40)
[2021-02-15] MEDS ORDERED: ONDANSETRON 4MG/2ML VIAL IV ONE (10:40)
[2021-02-15 11:09] LABS: BASO % 0.5 % (0.0-1.0); EOS # 0.1 10^3/uL (0.0-0.5); HEMATOCRIT 40.1 % (36.0-47.0); HEMOGLOBIN 12.5 g/dl (12.0-15.5); LYMPH % 24.5 % (24.0-44.0); MEAN CORPUSCULAR HEMOGLOBIN 25.5 pg (27.0-33.0); MEAN CORPUSCULAR HGB CONC 31.2 g/dl (32.0-36.5); MEAN CORPUSCULAR VOLUME 81.8 fl (80.0-96.0); MONO # 0.4 10^3/uL (0.0-0.8); MONO % 5.4 % (2.0-8.0); NEUTROPHILS # 5.5 10^3/uL (1.5-8.5); NEUTROPHILS % 67.9 % (36.0-66.0); PLATELET COUNT, AUTOMATED 240 10^3/uL (150-450)
[2021-02-15 11:36] LABS: BLOOD UREA NITROGEN 9 MG/DL (7-18); C REACTIVE PROTEIN QUANTITATIV 3.57 MG/DL (0.00-0.30); CALCIUM LEVEL 8.9 MG/DL (8.5-10.1); CARBON DIOXIDE LEVEL 23 MEQ/L (21-32); CHLORIDE LEVEL 107 MEQ/L (98-107); CREATININE FOR GFR 0.75 MG/DL (0.55-1.30); GLOMERULAR FILTRATION RATE > 60.0 (>60); GLUCOSE, FASTING 159 MG/DL (70-100); POTASSIUM SERUM 4.6 MEQ/L (3.5-5.1); SODIUM LEVEL 137 MEQ/L (136-145)
[2021-02-15 11:52] LABS: ERYTHROCYTE SEDIMENTATION RATE 38 mm/hr (0-20)
[2021-02-15] MEDS ORDERED: CEFEPIME HCL 2 GM in D5W MINI-BAG PLUS 50 ML IV ONE (12:30)
[2021-02-15] MEDS ORDERED: KETOROLAC 30 MG/ML 1ML VIAL IV ONE (12:35)
[2021-02-15 12:47] VITALS: BP 113/72
--- NOTE | 2021-02-15 13:23 | REP ---
INDICATION: Severe R sided ear pain, pain over mastoid, drainage. COMPARISON: None. TECHNIQUE: CT maxillofacial bones performed. Sagittal and coronal reconstruction images are performed. FINDINGS: The visualized osseous structures are intact with no evidence of acute fracture. The orbital floors appear intact. The mandible and zygomatic arches appear intact. The nasal bones appear intact. The paranasal sinuses and mastoid air cells are clear. The globes appear intact. There is mild retraction of the right tympanic membrane and opacification of the right middle ear. There is a lesser degree of left tympanic membrane retraction and soft tissue density in the left middle ear. On the most inferior images there is a questionable 1 cm nodule in the right thyroid. Multiple subcentimeter lymph nodes are seen in the bilateral neck soft tissues. IMPRESSION: No CT evidence of mastoiditis. There are findings compatible with bilateral otitis media, right greater than left. A preliminary report was provided by [facility] at the time of the exam. <Electronically signed by Raymond Jonas > 02/15/21 3425
== END 2021-02-15 13:09 | disposition home or self-care (01) ==
LOC: M ED 08:57
DX: H60.93 Unspecified otitis externa, bilateral (principal); H66.93 Otitis media, unspecified, bilateral; E11.9 Type 2 diabetes mellitus without complications; I10 Essential (primary) hypertension; E78.5 Hyperlipidemia, unspecified; K21.9 Gastro-esophageal reflux disease without esophagitis; Z79.84 Long term (current) use of oral hypoglycemic drugs; Z79.899 Other long term (current) drug therapy; Z88.8 Allergy status to other drugs, medicaments and biological substances; Z91.02 Food additives allergy status; Z90.49 Acquired absence of other specified parts of digestive tract; Z98.890 Other specified postprocedural states; Z86.19 Personal history of other infectious and parasitic diseases; Z87.01 Personal history of pneumonia (recurrent)
CPT/HCPCS: 70486; 80048; 85025; 85652; 86140; 87070; 87077; 87186; 87205; 96374; 96375; 99283; J1885; J2270; J2405

== ENCOUNTER 2021-07-09 10:12 | Emergency (ER) | payer MEDICAID ==
[~2021-07-09] VITALS: Ht 172.7 cm; Wt 145.4 kg
[~2021-07-09 10:12] MED LIST changes: +VERA180T43 PO; -VERA180T53 PO
[2021-07-09] MEDS ORDERED: ACETAMINOPHEN 500 MG TAB PO ONE (11:00)
[2021-07-09] MEDS ORDERED: SUMAtriptan SUCCINATE 6 MG/0.5 ML VIAL SC ONE (12:20)
[2021-07-09] MEDS ORDERED: OSEL75CA PO (12:29)
[2021-07-09 12:45] VITALS: BP 147/71
== END 2021-07-09 13:38 | disposition home or self-care (01) ==
LOC: M ED 10:12
DX: J09.X9 Influenza due to identified novel influenza A virus with other manifestations (principal); E11.9 Type 2 diabetes mellitus without complications; I10 Essential (primary) hypertension; G43.909 Migraine, unspecified, not intractable, without status migrainosus; E78.9 Disorder of lipoprotein metabolism, unspecified; Z79.899 Other long term (current) drug therapy; Z79.84 Long term (current) use of oral hypoglycemic drugs; Z88.8 Allergy status to other drugs, medicaments and biological substances; Z91.018 Allergy to other foods

== ENCOUNTER → 2021-07-17 | Outpatient (CLI) | payer MEDICAID ==
[~2021-07-17] MED LIST changes: +OSEL75CA PO
[2021-07-17 14:49] LABS: ALBUMIN 3.6 GM/DL (3.2-5.2); ALT/SGPT 43 U/L (12-78); BILIRUBIN,TOTAL 0.2 MG/DL (0.2-1.0); BLOOD UREA NITROGEN 10 MG/DL (7-18); CALCIUM LEVEL 9.1 MG/DL (8.5-10.1); CARBON DIOXIDE LEVEL 25 MEQ/L (21-32); CHLORIDE LEVEL 105 MEQ/L (98-107); CHOLESTEROL LEVEL 196 MG/DL (<200); CHOLESTEROL RISK RATIO 5.444 (<5); GLOMERULAR FILTRATION RATE > 60.0 (>60); GLUCOSE, FASTING 226 MG/DL (70-100); HDL CHOLESTEROL 36 MG/DL (>40); LDL CHOLESTEROL 84 MG/DL (<100); MALB URINE SIEMENS 9.3 MG/L; MAU/CREAT RATIO 5.1 MCG/MG (0.0-30.0); NON-HDL-C 160 MG/DL; POTASSIUM SERUM 4.6 MEQ/L (3.5-5.1); SODIUM LEVEL 138 MEQ/L (136-145); TOTAL PROTEIN 7.3 GM/DL (6.4-8.2); TRIGLYCERIDES LEVEL 381 MG/DL (<150)
[2021-07-17 15:15] LABS: HEMOGLOBIN A1c 8.1 %
== END ==
LOC: M PLALAB 10:48
PROVIDERS: ATTEND Family Medicine
DX: E11.9 Type 2 diabetes mellitus without complications (principal)

== ENCOUNTER → 2021-07-31 | Outpatient (CLI) | payer MEDICAID | LOC: M RAD 08:18 → M LAB 08:18 | PROVIDERS: ATTEND Family Medicine | DX: R94.5 Abnormal results of liver function studies (principal); K76.0 Fatty (change of) liver, not elsewhere classified ==

== ENCOUNTER → 2021-08-05 | Outpatient (CLI) | payer MEDICAID ==
[2021-08-05 08:29] LABS: INR 0.92; PROTHROMBIN TIME 12.8 SECONDS (12.7-14.5)
[2021-08-05 08:50] LABS: ALBUMIN 3.7 GM/DL (3.2-5.2); ALT/SGPT 55 U/L (12-78); BILIRUBIN,DIRECT 0.1 MG/DL (0.0-0.2); BILIRUBIN,TOTAL 0.4 MG/DL (0.2-1.0); FERRITIN 28 NG/ML (8-252); IRON (FE) 36 UG/DL (50-170); PERCENT SATURATION 8.6 % (13.2-45.0); TOTAL IRON BINDING CAPACITY 420 UG/DL (250-450); TOTAL PROTEIN 7.3 GM/DL (6.4-8.2)
[2021-08-05 12:04] LABS: HEPATITIS B SURFACE ANTIGEN NEGATIVE (NEGATIVE)
[2021-08-08 00:07] LABS: HEPATITIS B CORE ANTIBODY IGG Negative (Negative)
== END ==
LOC: M LAB 07:42
PROVIDERS: ATTEND Family Medicine
DX: R74.01 Elevation of levels of liver transaminase levels (principal); K76.0 Fatty (change of) liver, not elsewhere classified

== ENCOUNTER → 2021-09-18 | Outpatient (CLI) | payer MEDICAID ==
[2021-09-18 09:48] LABS: BLOOD UREA NITROGEN 11 MG/DL (7-18); CREATININE FOR GFR 0.71 MG/DL (0.55-1.30); GLOMERULAR FILTRATION RATE > 60.0 (>60)
== END ==
LOC: M LAB 08:45
PROVIDERS: ATTEND Family Medicine
DX: I10 Essential (primary) hypertension (principal)

== ENCOUNTER → 2021-09-19 | Outpatient (CLI) | payer MEDICAID ==
[~2021-09-19] MED LIST changes: +PROHANCE 279.3MG/ML 15ML VIAL As Ordered ONE; +PROHANCE 279.3MG/ML 5ML VIAL As Ordered ONE
== END ==
LOC: M RAD 14:52
PROVIDERS: ATTEND Family Medicine
DX: Z83.3 Family history of diabetes mellitus (principal); Z53.8 Procedure and treatment not carried out for other reasons

== ENCOUNTER 2021-10-02 10:20 | Emergency (ER) | payer MEDICAID ==
[~2021-10-02] VITALS: Ht 170.2 cm; Wt 136.4 kg
[~2021-10-02 10:20] MED LIST changes: -PROHANCE 279.3MG/ML 15ML VIAL As Ordered ONE; -PROHANCE 279.3MG/ML 5ML VIAL As Ordered ONE
[2021-10-02] MEDS ORDERED: SUMA6INJ20 (10:37)
[2021-10-02] MEDS ORDERED: NS 1,000 ML IV ONE (12:35)
[2021-10-02] MEDS ORDERED: ONDANSETRON 4MG/2ML VIAL IV ONE (12:35)
[2021-10-02] MEDS ORDERED: diphenhydrAMINE 50MG/ML VIAL (J1200) IV ONE (12:35)
[2021-10-02] MEDS ORDERED: ACETAMINOPHEN 500 MG TAB PO ONE (12:35)
[2021-10-02 13:34] LABS: BASO % 0.5 % (0.0-1.0); EOS # 0.1 10^3/uL (0.0-0.5); HEMATOCRIT 35.8 % (36.0-47.0); HEMOGLOBIN 11.4 g/dl (12.0-15.5); LYMPH % 24.4 % (24.0-44.0); MEAN CORPUSCULAR HEMOGLOBIN 25.9 pg (27.0-33.0); MEAN CORPUSCULAR HGB CONC 31.8 g/dl (32.0-36.5); MEAN CORPUSCULAR VOLUME 81.4 fl (80.0-96.0); MONO # 0.3 10^3/uL (0.0-0.8); MONO % 3.9 % (2.0-8.0); NEUTROPHILS # 5.7 10^3/uL (1.5-8.5); NEUTROPHILS % 69.7 % (36.0-66.0); PLATELET COUNT, AUTOMATED 262 10^3/uL (150-450); WHITE BLOOD COUNT 8.2 10^3/uL (4.0-10.0)
[2021-10-02 14:04] LABS: ERYTHROCYTE SEDIMENTATION RATE 35 mm/hr (0-20)
[2021-10-02] MEDS ORDERED: MAG SULF 1GM/100ML (MAG RUN) 1 GM in IV 1 EA IV ONE (14:15)
[2021-10-02] MEDS ORDERED: dexameTHASONE 4 MG/ML 1ML VIAL (J1100 PER 1MG) IV ONE (14:15)
[2021-10-02 16:31] VITALS: BP 128/66
[2021-10-02] MEDS ORDERED: KETOROLAC 30 MG/ML 1ML VIAL IV ONE (16:35)
== END 2021-10-02 17:30 | disposition home or self-care (01) ==
LOC: M ED 10:20
DX: G43.919 Migraine, unspecified, intractable, without status migrainosus (principal); E11.9 Type 2 diabetes mellitus without complications; I10 Essential (primary) hypertension; E78.5 Hyperlipidemia, unspecified; F33.9 Major depressive disorder, recurrent, unspecified; F41.9 Anxiety disorder, unspecified; Z87.442 Personal history of urinary calculi; Z79.899 Other long term (current) drug therapy; Z79.84 Long term (current) use of oral hypoglycemic drugs; Z88.8 Allergy status to other drugs, medicaments and biological substances; Z91.018 Allergy to other foods
CPT/HCPCS: 70450; 85025; 85652; 86140; 96361; 96374; 96375; 99284; J1100; J1200; J1885; J2405; J3475

== ENCOUNTER 2022-01-08 09:30 | Emergency (ER) | payer MEDICAID ==
[~2022-01-08] VITALS: Ht 170.2 cm; Wt 134.6 kg
[~2022-01-08 09:30] MED LIST changes: +ALBU2.5V10 INH; -ALBU83IN INH; +SUMA6INJ20
[2022-01-08] MEDS ORDERED: METOCLOPRAMIDE INJ 10MG/2ML VIAL (J2765 PER 1) IV ONE (10:35)
[2022-01-08] MEDS ORDERED: NS 1,000 ML IV ONE (10:35)
[2022-01-08] MEDS ORDERED: KETOROLAC 30 MG/ML 1ML VIAL IV ONE (10:35)
[2022-01-08] MEDS ORDERED: ACETAMINOPHEN 325 MG TAB PO ONE (10:35)
[2022-01-08] MEDS ORDERED: VALPROATE SOD INJ 500 MG in D5W 50 ML IV ONE (11:55)
[2022-01-08] MEDS ORDERED: dexameTHASONE 20MG/5ML VIAL (J1100 PER 1MG) IV ONE (11:55)
[2022-01-08 13:15] VITALS: BP 110/53
[2022-01-08] MEDS ORDERED: DEPA250T32 PO (13:27)
[2022-01-08] MEDS ORDERED: ONDA4TAB6 PO (13:46)
== END 2022-01-08 14:04 | disposition home or self-care (01) ==
LOC: M ED 09:30
DX: G43.909 Migraine, unspecified, not intractable, without status migrainosus (principal); I10 Essential (primary) hypertension; F32.A Depression, unspecified; F41.9 Anxiety disorder, unspecified; E78.5 Hyperlipidemia, unspecified; M54.50 Low back pain, unspecified; Z88.8 Allergy status to other drugs, medicaments and biological substances; Z91.018 Allergy to other foods; Z79.899 Other long term (current) drug therapy; Z79.84 Long term (current) use of oral hypoglycemic drugs
CPT/HCPCS: 96374; 96375; 99284; J1100; J1885; J2765

== ENCOUNTER 2022-06-26 06:22 | Emergency (ER) | payer MEDICAID ==
[~2022-06-26] VITALS: Ht 170.2 cm; Wt 130.9 kg
[~2022-06-26 06:22] MED LIST changes: -MAXA10TA14 PO; +ONDA4TAB6 PO; +RIZA10TA64 PO
[2022-06-26 06:23] VITALS: BP 135/77
[2022-06-26] MEDS ORDERED: AMOX500C PO (08:00)
[2022-06-26] MEDS ORDERED: BACIOIN23 OS (08:01)
[2022-06-26] MEDS ORDERED: IBUPROFEN 400MG TAB PO ONE (08:05)
== END 2022-06-26 08:32 | disposition home or self-care (01) ==
LOC: M ED 06:22
DX: J10.1 Influenza due to other identified influenza virus with other respiratory manifestations (principal); H66.92 Otitis media, unspecified, left ear; H10.9 Unspecified conjunctivitis; E11.9 Type 2 diabetes mellitus without complications; I10 Essential (primary) hypertension; G43.909 Migraine, unspecified, not intractable, without status migrainosus; Z79.84 Long term (current) use of oral hypoglycemic drugs; Z79.899 Other long term (current) drug therapy; Z88.8 Allergy status to other drugs, medicaments and biological substances; Z91.02 Food additives allergy status

== ENCOUNTER → 2022-07-01 | Outpatient (CLI) | payer MEDICAID ==
[~2022-07-01] MED LIST changes: +AMOX500C PO; +BACIOIN23 OS
[2022-07-01 13:30] LABS: BASO # 0.1 10^3/uL (0.0-0.2); BASO % 0.7 % (0.0-1.0); EOS # 0.1 10^3/uL (0.0-0.5); EOS % 1.5 % (0.0-3.0); HEMOGLOBIN 11.8 g/dl (12.0-15.5); LYMPH # 2.6 10^3/uL (1.5-5.0); LYMPH % 29.9 % (24.0-44.0); MEAN CORPUSCULAR HEMOGLOBIN 25.3 pg (27.0-33.0); MEAN CORPUSCULAR HGB CONC 31.1 g/dl (32.0-36.5); MEAN CORPUSCULAR VOLUME 81.5 fl (80.0-96.0); MONO # 0.4 10^3/uL (0.0-0.8); MONO % 4.2 % (2.0-8.0); NEUTROPHILS # 5.4 10^3/uL (1.5-8.5); PLATELET COUNT, AUTOMATED 297 10^3/uL (150-450); RED BLOOD COUNT 4.66 10^6/uL (4.00-5.40); WHITE BLOOD COUNT 8.6 10^3/uL (4.0-10.0)
[2022-07-01 13:33] LABS: ALBUMIN 3.4 G/DL (3.2-5.2); ALKALINE PHOSPHATASE 76 U/L (46-116); ALT/SGPT 17 U/L (7.0-40); AST/SGOT 16 U/L (<34); BILIRUBIN,TOTAL 0.3 MG/DL (0.3-1.2); BLOOD UREA NITROGEN 13 MG/DL (9-23); CARBON DIOXIDE LEVEL 26 MMOL/L (20-31); CHLORIDE LEVEL 105 MMOL/L (98-107); CHOLESTEROL LEVEL 172 MG/DL (<200); CREATININE FOR GFR 0.69 MG/DL (0.55-1.30); GLOMERULAR FILTRATION RATE > 60.0 (>60); GLUCOSE, FASTING 172 MG/DL (60-100); HDL CHOLESTEROL 35.1 MG/DL (>40); LDL CHOLESTEROL 88.1 MG/DL (<100); NON-HDL-C 137 MG/DL; POTASSIUM SERUM 4.5 MMOL/L (3.5-5.1); SODIUM LEVEL 140 MMOL/L (136-145); TOTAL PROTEIN 6.7 G/DL (5.7-8.2); TRIGLYCERIDES LEVEL 244 MG/DL (<150)
[2022-07-01 13:40] LABS: HEMOGLOBIN A1c 6.3 % (4.0-6.0)
== END ==
LOC: M PLALAB 11:02
PROVIDERS: ATTEND Physician Assistant
DX: E11.9 Type 2 diabetes mellitus without complications (principal)

== ENCOUNTER → 2022-07-04 | Outpatient (REF) | payer MEDICARE, MEDICAID | LOC: M PLALAB 11:47 | PROVIDERS: ATTEND Nurse Practitioner Family | DX: Z12.4 Encounter for screening for malignant neoplasm of cervix (principal) | CPT/HCPCS: 87624; G0123 ==

== ENCOUNTER → 2022-07-04 | Outpatient (CLI) | payer MEDICAID | LOC: M WHC 09:50 | PROVIDERS: ATTEND Nurse Practitioner Family | DX: Z12.31 Encounter for screening mammogram for malignant neoplasm of breast (principal) ==

== ENCOUNTER 2022-09-03 03:09 | Emergency (ER) | payer MEDICARE, MEDICAID ==
[~2022-09-03] VITALS: Ht 170.2 cm; Wt 131.3 kg
[2022-09-03 05:05] VITALS: BP 147/72
[2022-09-03] MEDS ORDERED: AMOX500C PO (05:28)
[2022-09-03] MEDS ORDERED: AMOXICILLIN 500 MG CAP PO ONE (05:30)
[2022-09-03] MEDS ORDERED: ACETAMINOPHEN TAB 650MG DOSE (2X325MG) PO ONE (05:30)
== END 2022-09-03 05:55 | disposition home or self-care (01) ==
LOC: M ED 03:09
DX: J02.0 Streptococcal pharyngitis (principal); E11.9 Type 2 diabetes mellitus without complications; I10 Essential (primary) hypertension; F41.9 Anxiety disorder, unspecified; K75.81 Nonalcoholic steatohepatitis (NASH); Z79.4 Long term (current) use of insulin; Z79.84 Long term (current) use of oral hypoglycemic drugs; Z88.6 Allergy status to analgesic agent; Z79.899 Other long term (current) drug therapy

== ENCOUNTER → 2022-10-23 | Outpatient (REF) | payer MEDICARE, MEDICAID ==
[2022-10-23 17:59] LABS: BASO # 0.1 10^3/uL (0.0-0.2); BASO % 0.8 % (0.0-1.0); EOS # 0.2 10^3/uL (0.0-0.5); EOS % 1.6 % (0.0-3.0); HEMATOCRIT 37.3 % (36.0-47.0); HEMOGLOBIN 11.5 g/dl (12.0-15.5); LYMPH # 3.2 10^3/uL (1.5-5.0); LYMPH % 34.1 % (24.0-44.0); MEAN CORPUSCULAR HEMOGLOBIN 24.2 pg (27.0-33.0); MEAN CORPUSCULAR HGB CONC 30.8 g/dl (32.0-36.5); MEAN CORPUSCULAR VOLUME 78.4 fl (80.0-96.0); MONO # 0.5 10^3/uL (0.0-0.8); MONO % 5.6 % (2.0-8.0); NEUTROPHILS # 5.4 10^3/uL (1.5-8.5); NEUTROPHILS % 57.4 % (36.0-66.0); PLATELET COUNT, AUTOMATED 385 10^3/uL (150-450); RED BLOOD COUNT 4.76 10^6/uL (4.00-5.40); WHITE BLOOD COUNT 9.5 10^3/uL (4.0-10.0)
[2022-10-23 18:21] LABS: LIPASE 47 U/L (12-53)
[2022-10-23 18:22] LABS: CREATININE, URINE 86.6 MG/DL; MALB URINE SIEMENS < 3.0 MG/L; MAU/CREAT RATIO 3.4 MCG/MG (0.0-30.0)
[2022-10-23 18:23] LABS: ALBUMIN 3.4 G/DL (3.2-5.2); ALKALINE PHOSPHATASE 72 U/L (46-116); ALT/SGPT 15 U/L (7.0-40); AST/SGOT 9 U/L (<34); BILIRUBIN,TOTAL 0.3 MG/DL (0.3-1.2); BLOOD UREA NITROGEN 14 MG/DL (9-23); CALCIUM LEVEL 9.3 MG/DL (8.5-10.1); CARBON DIOXIDE LEVEL 25 MMOL/L (20-31); CHLORIDE LEVEL 104 MMOL/L (98-107); CREATININE FOR GFR 0.75 MG/DL (0.55-1.30); GLOMERULAR FILTRATION RATE > 60.0 (>60); GLUCOSE, FASTING 87 MG/DL (60-100); HEMOGLOBIN A1c 6.6 % (4.0-6.0); MAGNESIUM LEVEL 1.5 MG/DL (1.8-2.4); POTASSIUM SERUM 4.7 MMOL/L (3.5-5.1); SODIUM LEVEL 135 MMOL/L (136-145); TOTAL PROTEIN 6.8 G/DL (5.7-8.2)
[2022-10-23 18:25] LABS: THYROID STIMULATING HORMONE 2.641 uIU/ML (0.55-4.78)
[2022-10-23 18:26] LABS: FREE T4 1.02 NG/DL (0.89-1.76)
[2022-10-23 18:57] LABS: ERYTHROCYTE SEDIMENTATION RATE 35 mm/hr (0-20)
== END ==
LOC: M SFHCPLAZ 17:27
PROVIDERS: ATTEND Physician Assistant
DX: R53.81 Other malaise (principal); R53.83 Other fatigue; E11.65 Type 2 diabetes mellitus with hyperglycemia; L29.9 Pruritus, unspecified; E66.01 Morbid (severe) obesity due to excess calories; I10 Essential (primary) hypertension

== ENCOUNTER → 2023-01-27 | Outpatient (CLI) | payer MEDICARE, MEDICAID ==
[2023-01-27 13:50] LABS: BASO # 0.1 10^3/uL (0.0-0.2); BASO % 0.5 % (0.0-1.0); EOS # 0.1 10^3/uL (0.0-0.5); EOS % 0.9 % (0.0-3.0); HEMATOCRIT 37.3 % (36.0-47.0); HEMOGLOBIN 11.3 g/dl (12.0-15.5); LYMPH # 2.8 10^3/uL (1.5-5.0); MEAN CORPUSCULAR HEMOGLOBIN 23.6 pg (27.0-33.0); MEAN CORPUSCULAR HGB CONC 30.3 g/dl (32.0-36.5); MONO # 0.5 10^3/uL (0.0-0.8); NEUTROPHILS # 6.8 10^3/uL (1.5-8.5); NEUTROPHILS % 66.1 % (36.0-66.0); PLATELET COUNT, AUTOMATED 332 10^3/uL (150-450); RED BLOOD COUNT 4.78 10^6/uL (4.00-5.40); WHITE BLOOD COUNT 10.2 10^3/uL (4.0-10.0)
[2023-01-27 14:04] LABS: HEMOGLOBIN A1c 6.8 % (4.0-6.0)
[2023-01-27 14:26] LABS: ALBUMIN 3.6 G/DL (3.2-5.2); BLOOD UREA NITROGEN 14 MG/DL (9-23); CALCIUM LEVEL 9.2 MG/DL (8.5-10.1); CARBON DIOXIDE LEVEL 25 MMOL/L (20-31); CHLORIDE LEVEL 106 MMOL/L (98-107); CREATININE FOR GFR 0.68 MG/DL (0.55-1.30); GLOMERULAR FILTRATION RATE > 60.0 (>58); GLUCOSE, FASTING 118 MG/DL (60-100); PHOSPHORUS LEVEL 3.9 MG/DL (2.5-4.9); POTASSIUM SERUM 4.6 MMOL/L (3.5-5.1); SODIUM LEVEL 138 MMOL/L (136-145)
== END ==
LOC: M PLALAB 11:09
PROVIDERS: ATTEND Physician Assistant
DX: E11.9 Type 2 diabetes mellitus without complications (principal); I10 Essential (primary) hypertension

== ENCOUNTER 2023-03-19 03:20 | Emergency (ER) | payer MEDICARE, MEDICAID ==
[~2023-03-19] VITALS: Ht 170.2 cm; Wt 130.6 kg
[2023-03-19 03:21] VITALS: BP 141/94; TEMP 99; O2SAT 97
== END 2023-03-19 04:40 | disposition left against medical advice (07) ==
LOC: M ED 03:20
DX: Z53.21 Procedure and treatment not carried out due to patient leaving prior to being seen by health care provider (principal)

== ENCOUNTER 2023-04-23 15:46 | Emergency (ER) | payer MEDICARE, MEDICAID ==
[~2023-04-23] VITALS: Ht 170.2 cm; Wt 136.4 kg
[2023-04-23] MEDS ORDERED: VITACAP37 PO (16:08)
[2023-04-23 20:10] LABS: BASO # 0.1 10^3/uL (0.0-0.2); BASO % 0.6 % (0.0-1.0); EOS # 0.1 10^3/uL (0.0-0.5); EOS % 1.3 % (0.0-3.0); HEMATOCRIT 38.4 % (36.0-47.0); HEMOGLOBIN 12.1 g/dl (12.0-15.5); LYMPH # 3.1 10^3/uL (1.5-5.0); LYMPH % 31.2 % (24.0-44.0); MEAN CORPUSCULAR HEMOGLOBIN 24.5 pg (27.0-33.0); MEAN CORPUSCULAR HGB CONC 31.5 g/dl (32.0-36.5); MEAN CORPUSCULAR VOLUME 77.9 fl (80.0-96.0); MONO # 0.5 10^3/uL (0.0-0.8); MONO % 4.6 % (2.0-8.0); NEUTROPHILS # 6.1 10^3/uL (1.5-8.5); NEUTROPHILS % 61.9 % (36.0-66.0); PLATELET COUNT, AUTOMATED 333 10^3/uL (150-450); RED BLOOD COUNT 4.93 10^6/uL (4.00-5.40); WHITE BLOOD COUNT 9.9 10^3/uL (4.0-10.0)
[2023-04-23 20:32] LABS: ALBUMIN 3.7 G/DL (3.2-5.2); BILIRUBIN,DIRECT 0.1 MG/DL (<0.4); BILIRUBIN,TOTAL 0.3 MG/DL (0.3-1.2); TOTAL PROTEIN 7.3 G/DL (5.7-8.2)
[2023-04-23] MEDS ORDERED: ACETAMINOPHEN *IV* 1,000 MG in IV 1 EA IV ONE (20:35)
[2023-04-23] MEDS ORDERED: KETOROLAC 30 MG/ML 1ML VIAL IV ONE (22:35)
[2023-04-23] MEDS ORDERED: ONDANSETRON 4MG 2ML VIAL IV ONE (22:35)
[2023-04-23] MEDS ORDERED: MIRA3350 PO (22:59)
[2023-04-24 00:08] VITALS: BP 131/71; TEMP 98.3; O2SAT 96
== END 2023-04-24 00:09 | disposition home or self-care (01) ==
LOC: M ED 15:46
DX: K59.00 Constipation, unspecified (principal); N20.0 Calculus of kidney; E11.9 Type 2 diabetes mellitus without complications; I10 Essential (primary) hypertension; K21.9 Gastro-esophageal reflux disease without esophagitis; E78.5 Hyperlipidemia, unspecified; K58.9 Irritable bowel syndrome, unspecified; Z79.899 Other long term (current) drug therapy; Z88.8 Allergy status to other drugs, medicaments and biological substances; Z91.02 Food additives allergy status
CPT/HCPCS: 74176; 76856; 80047; 80076; 81001; 81002; 83690; 84702; 85025; 87086; 93005; 93976; 96372; 96374; 96375; 99284; G0463; J0131; J1885; J2405

== ENCOUNTER → 2023-04-24 | Outpatient (REF) | payer MEDICARE, MEDICAID ==
[~2023-04-24] MED LIST changes: +MIRA3350 PO; +VITACAP37 PO
[2023-04-24 14:05] LABS: APPEARANCE, URINE CLOUDY (CLEAR); BACTERIA, URINE AUTO NEGATIVE (NEGATIVE); BILIRUBIN, URINE AUTO 1+ (NEGATIVE); BLOOD, URINE BLOOD NEGATIVE (NEGATIVE); COLOR, URINE AMBER (YELLOW); GLUCOSE, URINE (UA) AUTO NEGATIVE (NEGATIVE); KETONE, URINE AUTO TRACE mg/dL (NEGATIVE); LEUKOCYTE ESTERASE, URINE AUTO TRACE (NEGATIVE); MUCUS, URINE MODERATE (NEGATIVE); NITRITE, URINE AUTO NEGATIVE (NEGATIVE); PROTEIN, URINE AUTO 1+ mg/dL (NEGATIVE); RBC, URINE AUTO 0 /HPF (0-3); SQUAMOUS EPITHELIAL CELL UR AU 28 /HPF (0-6); UROBILINOGEN, URINE AUTO 0.2 mg/dL (0.0-2.0); WBC, URINE AUTO 6 /HPF (0-3)
== END ==
LOC: M SFHCPLAZ 13:13
PROVIDERS: ATTEND Physician Assistant
DX: R10.9 Unspecified abdominal pain (principal)

== ENCOUNTER 2023-07-03 21:37 | Emergency (ER) | payer MEDICARE, MEDICAID ==
[~2023-07-03] VITALS: Ht 170.2 cm; Wt 137.3 kg
[~2023-07-03 21:37] MED LIST changes: +PSEU120T19 PO
[2023-07-04 00:03] VITALS: BP 147/88; TEMP 97.1; O2SAT 97
== END 2023-07-04 03:22 | disposition left against medical advice (07) ==
LOC: M ED 21:37
DX: Z53.21 Procedure and treatment not carried out due to patient leaving prior to being seen by health care provider (principal)

== ENCOUNTER → 2023-07-30 | Outpatient (REF) | payer MEDICARE, MEDICAID | LOC: M SFHCPLAZ 12:56 | PROVIDERS: ATTEND Physician Assistant | DX: N39.0 Urinary tract infection, site not specified (principal) ==

== ENCOUNTER 2023-08-31 08:51 | Emergency (ER) | payer MEDICARE, MEDICAID ==
[~2023-08-31] VITALS: Ht 170.2 cm; Wt 135.2 kg
[~2023-08-31 08:51] MED LIST changes: -LISI10TA22; +LISI10TA22 PO; -PANT40TA29; -SUMA6INJ20; +SUMA6INJ20 SQ
[2023-08-31] MEDS ORDERED: LAMO25TA4 PO (09:02)
[2023-08-31] MEDS ORDERED: GABA-282 PO (09:02)
[2023-08-31] MEDS ORDERED: SEMA1PEN2 SQ (09:02)
[2023-08-31] MEDS ORDERED: METF500T13 PO (09:02)
[2023-08-31] MEDS ORDERED: LABE100T6 PO (09:02)
[2023-08-31] MEDS: ACETAMINOPHEN 500 MG TAB PO ONE (11:54)
[2023-08-31] MEDS ORDERED: METF-838 PO (12:03)
[2023-08-31] MEDS ORDERED: MIRA3350 PO (12:03)
[2023-08-31] MEDS ORDERED: HOME MED LIST COMPLETE! XX SCH (12:05)
[2023-08-31 12:10] LABS: BASO # 0.1 10^3/uL (0.0-0.2); BASO % 0.7 % (0.0-1.0); EOS # 0.1 10^3/uL (0.0-0.5); EOS % 0.8 % (0.0-3.0); HEMOGLOBIN 12.3 g/dl (12.0-15.5); LYMPH # 1.2 10^3/uL (1.5-5.0); LYMPH % 16.4 % (24.0-44.0); MEAN CORPUSCULAR HEMOGLOBIN 24.9 pg (27.0-33.0); MEAN CORPUSCULAR HGB CONC 31.5 g/dl (32.0-36.5); MEAN CORPUSCULAR VOLUME 78.9 fl (80.0-96.0); MONO # 0.4 10^3/uL (0.0-0.8); MONO % 5.5 % (2.0-8.0); NEUTROPHILS # 5.7 10^3/uL (1.5-8.5); NEUTROPHILS % 76.2 % (36.0-66.0); PLATELET COUNT, AUTOMATED 204 10^3/uL (150-450); RED BLOOD COUNT 4.94 10^6/uL (4.00-5.40); WHITE BLOOD COUNT 7.5 10^3/uL (4.0-10.0)
[2023-08-31 12:38] LABS: CK-MB VALUE MASS < 1.0 NG/ML (<3.6)
[2023-08-31 12:39] LABS: CPK CREATINE PHOSPHOKINASE 77 U/L (34-145); MB/CK RELATIVE INDEX 1.29 (< OR =4)
[2023-08-31 12:40] LABS: ALBUMIN 3.8 G/DL (3.2-5.2); ALKALINE PHOSPHATASE 79 U/L (46-116); ALT/SGPT 53 U/L (7.0-40); AST/SGOT 32 U/L (<34); BILIRUBIN,DIRECT 0.2 MG/DL (<0.4); BILIRUBIN,TOTAL 0.6 MG/DL (0.3-1.2); BLOOD UREA NITROGEN 11 MG/DL (9-23); CALCIUM LEVEL 9.4 MG/DL (8.5-10.1); CARBON DIOXIDE LEVEL 27 MMOL/L (20-31); CHLORIDE LEVEL 103 MMOL/L (98-107); CREATININE FOR GFR 0.53 MG/DL (0.55-1.30); GLOMERULAR FILTRATION RATE > 60.0 (>58); GLUCOSE, FASTING 159 MG/DL (60-100); POTASSIUM SERUM 4.4 MMOL/L (3.5-5.1); SODIUM LEVEL 136 MMOL/L (136-145); TOTAL PROTEIN 7.2 G/DL (5.7-8.2)
[2023-08-31 13:25] VITALS: BP 133/79; TEMP 98.4; O2SAT 99
== END 2023-08-31 13:27 | disposition home or self-care (01) ==
LOC: M ED 08:51
DX: J02.9 Acute pharyngitis, unspecified (principal); R51.9 Headache, unspecified; R07.89 Other chest pain; R00.0 Tachycardia, unspecified; T42.75XA Adverse effect of unspecified antiepileptic and sedative-hypnotic drugs, initial encounter; Z88.8 Allergy status to other drugs, medicaments and biological substances; Z79.899 Other long term (current) drug therapy

== ENCOUNTER → 2023-10-01 | Outpatient (CLI) | payer MEDICARE, MEDICAID ==
[~2023-10-01] MED LIST changes: +GABA-282 PO; +LABE100T6 PO; +LAMO25TA4 PO; +SEMA1PEN2 SQ
[2023-10-01 12:40] LABS: BASO % 0.5 % (0.0-1.0); EOS # 0.1 10^3/uL (0.0-0.5); EOS % 1.3 % (0.0-3.0); HEMATOCRIT 39.6 % (36.0-47.0); HEMOGLOBIN 12.5 g/dl (12.0-15.5); LYMPH # 1.7 10^3/uL (1.5-5.0); LYMPH % 21.3 % (24.0-44.0); MEAN CORPUSCULAR HEMOGLOBIN 25.2 pg (27.0-33.0); MEAN CORPUSCULAR HGB CONC 31.6 g/dl (32.0-36.5); MEAN CORPUSCULAR VOLUME 79.7 fl (80.0-96.0); MONO # 0.5 10^3/uL (0.0-0.8); MONO % 6.4 % (2.0-8.0); NEUTROPHILS # 5.5 10^3/uL (1.5-8.5); NEUTROPHILS % 70.1 % (36.0-66.0); PLATELET COUNT, AUTOMATED 237 10^3/uL (150-450); RED BLOOD COUNT 4.97 10^6/uL (4.00-5.40); WHITE BLOOD COUNT 7.9 10^3/uL (4.0-10.0)
[2023-10-01 12:46] LABS: ALBUMIN 3.7 G/DL (3.2-5.2); ALKALINE PHOSPHATASE 77 U/L (46-116); ALT/SGPT 58 U/L (7.0-40); AST/SGOT 47 U/L (<34); BILIRUBIN,TOTAL 0.4 MG/DL (0.3-1.2); BLOOD UREA NITROGEN 13 MG/DL (9-23); CALCIUM LEVEL 9.7 MG/DL (8.5-10.1); CARBON DIOXIDE LEVEL 26 MMOL/L (20-31); CHLORIDE LEVEL 103 MMOL/L (98-107); CHOLESTEROL LEVEL 175 MG/DL (<200); CHOLESTEROL RISK RATIO 4.24 (<5); CREATININE FOR GFR 0.71 MG/DL (0.55-1.30); GLOMERULAR FILTRATION RATE > 60.0 (>58); GLUCOSE, FASTING 173 MG/DL (60-100); HDL CHOLESTEROL 41.2 MG/DL (>40); NON-HDL-C 133.8 MG/DL; POTASSIUM SERUM 4.9 MMOL/L (3.5-5.1); SODIUM LEVEL 135 MMOL/L (136-145); TOTAL PROTEIN 7.2 G/DL (5.7-8.2); TRIGLYCERIDES LEVEL 184 MG/DL (<150)
[2023-10-01 12:48] LABS: THYROID STIMULATING HORMONE 1.798 uIU/ML (0.55-4.78); VITAMIN B12 LEVEL 401 PG/ML (211-911)
[2023-10-01 12:49] LABS: FREE T4 1.05 NG/DL (0.89-1.76)
[2023-10-01 13:04] LABS: CREATININE, URINE 202.5 MG/DL; HEMOGLOBIN A1c 7.9 % (4.0-6.0); MAU/CREAT RATIO 2.4 MCG/MG (0.0-30.0)
== END ==
LOC: M PLALAB 09:31
PROVIDERS: ATTEND Physician Assistant
DX: E78.1 Pure hyperglyceridemia (principal); E11.9 Type 2 diabetes mellitus without complications; E66.01 Morbid (severe) obesity due to excess calories

== ENCOUNTER → 2023-10-01 | Outpatient (CLI) | payer MEDICARE, MEDICAID | LOC: M WHC 09-04 08:32 | PROVIDERS: ATTEND Nurse Practitioner Family | DX: Z12.31 Encounter for screening mammogram for malignant neoplasm of breast (principal); R92.8 Other abnormal and inconclusive findings on diagnostic imaging of breast ==

== ENCOUNTER → 2023-10-20 | Outpatient (CLI) | payer MEDICARE, MEDICAID | LOC: M WHC 08:13 | PROVIDERS: ATTEND Nurse Practitioner Family | DX: R92.2 Inconclusive mammogram (principal); R92.313 Mammographic fatty tissue density, bilateral breasts | CPT/HCPCS: 77066; G0279 ==

== ENCOUNTER 2024-01-05 13:09 | Emergency (ER) | payer MEDICARE, MEDICAID ==
[~2024-01-05] VITALS: Ht 170.2 cm; Wt 124.4 kg
[~2024-01-05 13:09] MED LIST changes: +ONDA-282 PO; -ONDA4TAB6 PO
[2024-01-05 13:10] VITALS: TEMP 99.1
[2024-01-05] MEDS ORDERED: TIRZ12.5 SQ (13:18)
[2024-01-05] MEDS ORDERED: LANTINJ4 SC (13:20)
[2024-01-05 13:57] LABS: BASO # 0.1 10^3/uL (0.0-0.2); BASO % 0.5 % (0.0-1.0); EOS # 0.1 10^3/uL (0.0-0.5); EOS % 0.9 % (0.0-3.0); HEMATOCRIT 41.3 % (36.0-47.0); HEMOGLOBIN 13.7 g/dl (12.0-15.5); MEAN CORPUSCULAR HGB CONC 33.2 g/dl (32.0-36.5); MEAN CORPUSCULAR VOLUME 78.5 fl (80.0-96.0); MONO # 0.8 10^3/uL (0.0-0.8); MONO % 8.3 % (2.0-8.0); NEUTROPHILS # 6.3 10^3/uL (1.5-8.5); PLATELET COUNT, AUTOMATED 335 10^3/uL (150-450); RED BLOOD COUNT 5.26 10^6/uL (4.00-5.40); WHITE BLOOD COUNT 9.3 10^3/uL (4.0-10.0)
[2024-01-05] MEDS: METOCLOPRAMIDE INJ 10MG/2ML VIAL IV ONE (13:57)
[2024-01-05] MEDS: NS 1,000 ML IV ONE (13:57)
[2024-01-05] MEDS: PANTOPRAZOLE 40MG VIAL IV ONE (13:57)
[2024-01-05 14:19] LABS: LIPASE 318 U/L (12-53)
[2024-01-05 14:21] LABS: ALBUMIN 3.6 G/DL (3.2-5.2); ALKALINE PHOSPHATASE 117 U/L (46-116); ALT/SGPT 39 U/L (7.0-40); AST/SGOT 14 U/L (<34); BILIRUBIN,DIRECT 0.1 MG/DL (<0.4); BILIRUBIN,TOTAL 0.4 MG/DL (0.3-1.2); BLOOD UREA NITROGEN 21 MG/DL (9-23); CALCIUM LEVEL 9.8 MG/DL (8.5-10.1); CARBON DIOXIDE LEVEL 21 MMOL/L (20-31); CHLORIDE LEVEL 103 MMOL/L (98-107); CREATININE FOR GFR 0.82 MG/DL (0.55-1.30); GLOMERULAR FILTRATION RATE > 60.0 (>58); GLUCOSE, FASTING 158 MG/DL (60-100); POTASSIUM SERUM 4.1 MMOL/L (3.5-5.1); SODIUM LEVEL 135 MMOL/L (136-145); TOTAL PROTEIN 7.5 G/DL (5.7-8.2)
[2024-01-05] MEDS ORDERED: ISOVUE-370 76% 100ML VIAL As Ordered ONE (14:39)
[2024-01-05] MEDS: ONDANSETRON 4MG 2ML VIAL IV ONE (15:38)
[2024-01-05] MEDS: MORPHINE 4 MG/ML 1ML VIAL IV PRN (15:38)
[2024-01-05] MEDS ORDERED: AMOX875T2 PO (16:28)
[2024-01-05 16:39] VITALS: O2SAT 95
[2024-01-05 16:45] VITALS: BP 154/94
== END 2024-01-05 16:50 | disposition home or self-care (01) ==
LOC: M ED 13:09
DX: K52.9 Noninfective gastroenteritis and colitis, unspecified (principal); E11.9 Type 2 diabetes mellitus without complications; I10 Essential (primary) hypertension; E78.5 Hyperlipidemia, unspecified; F79 Unspecified intellectual disabilities; F32.A Depression, unspecified; Z90.49 Acquired absence of other specified parts of digestive tract; Z88.6 Allergy status to analgesic agent; Z91.02 Food additives allergy status; Z79.899 Other long term (current) drug therapy
CPT/HCPCS: 74177; 80048; 80076; 83690; 85025; 96374; 96375; 99284; J2405; J2470; J2765; Q9967

== ENCOUNTER 2024-02-16 08:00 | Emergency (ER) | payer MEDICARE, MEDICAID ==
[~2024-02-16] VITALS: Ht 170.2 cm; Wt 128.2 kg
[~2024-02-16 08:00] MED LIST changes: +AMOX875T2 PO; +LANTINJ4 SC; +TIRZ12.5 SQ
[2024-02-16] MEDS: methocarbamoL 750 MG TAB PO ONE (09:24)
[2024-02-16] MEDS: ACETAMINOPHEN 500 MG TAB PO ONE (09:24)
[2024-02-16] MEDS: KETOROLAC 60MG 2ML VIAL IM ONE (09:25)
[2024-02-16] MEDS ORDERED: METH-1164 PO (10:12)
[2024-02-16 10:29] VITALS: BP 116/76; TEMP 98.8; O2SAT 96
== END 2024-02-16 10:31 | disposition home or self-care (01) ==
LOC: M ED 08:00
DX: M62.838 Other muscle spasm (principal); E11.9 Type 2 diabetes mellitus without complications; Z79.4 Long term (current) use of insulin; Z79.899 Other long term (current) drug therapy; Z88.8 Allergy status to other drugs, medicaments and biological substances; Z91.02 Food additives allergy status
CPT/HCPCS: 96372; 99283; J1885

== ENCOUNTER → 2024-03-24 | Outpatient (CLI) | payer MEDICARE, MEDICAID ==
[~2024-03-24] MED LIST changes: +GABA-1172 PO; -GABA-282 PO; +METH-1164 PO
[2024-03-24 14:11] LABS: ALBUMIN 3.6 G/DL (3.2-5.2); ALKALINE PHOSPHATASE 94 U/L (46-116); ALT/SGPT 28 U/L (7.0-40); AST/SGOT 14 U/L (<34); BILIRUBIN,TOTAL 0.3 MG/DL (0.3-1.2); BLOOD UREA NITROGEN 14 MG/DL (9-23); CALCIUM LEVEL 9.9 MG/DL (8.5-10.1); CARBON DIOXIDE LEVEL 31 MMOL/L (20-31); CHLORIDE LEVEL 103 MMOL/L (98-107); CREATININE FOR GFR 0.65 MG/DL (0.55-1.30); GLOMERULAR FILTRATION RATE > 60.0 (>58); GLUCOSE, FASTING 123 MG/DL (60-100); MAGNESIUM LEVEL 1.7 MG/DL (1.8-2.4); POTASSIUM SERUM 4.6 MMOL/L (3.5-5.1); SODIUM LEVEL 138 MMOL/L (136-145); TOTAL PROTEIN 7.3 G/DL (5.7-8.2)
[2024-03-24 14:15] LABS: HEMOGLOBIN A1c 5.9 % (4.0-6.0)
== END ==
LOC: M PLALAB 11:28
PROVIDERS: ATTEND Physician Assistant
DX: E11.9 Type 2 diabetes mellitus without complications (principal); R79.0 Abnormal level of blood mineral

== ENCOUNTER → 2024-04-22 | Outpatient (CLI) | payer MEDICARE, MEDICAID | LOC: M WHC 07:08 | PROVIDERS: ATTEND Physician Assistant | DX: R16.1 Splenomegaly, not elsewhere classified (principal) ==

== ENCOUNTER 2024-05-28 11:56 | Emergency (ER) | payer MEDICARE, MEDICAID ==
[~2024-05-28] VITALS: Ht 170.2 cm; Wt 130.7 kg
[2024-05-28 11:58] VITALS: TEMP 97.6
[2024-05-28] MEDS ORDERED: LURA40TA2 (12:21)
[2024-05-28] MEDS ORDERED: VALA1TAB5 (12:21)
[2024-05-28 12:51] LABS: BASO # 0.1 10^3/uL (0.0-0.2); BASO % 0.4 % (0.0-1.0); EOS # 0.1 10^3/uL (0.0-0.5); EOS % 0.8 % (0.0-3.0); HEMATOCRIT 41.7 % (36.0-47.0); HEMOGLOBIN 13.4 g/dl (12.0-15.5); LYMPH # 2.7 10^3/uL (1.5-5.0); LYMPH % 22.9 % (24.0-44.0); MEAN CORPUSCULAR HEMOGLOBIN 25.6 pg (27.0-33.0); MEAN CORPUSCULAR HGB CONC 32.1 g/dl (32.0-36.5); MEAN CORPUSCULAR VOLUME 79.6 fl (80.0-96.0); MONO # 0.6 10^3/uL (0.0-0.8); MONO % 5.2 % (2.0-8.0); NEUTROPHILS # 8.2 10^3/uL (1.5-8.5); NEUTROPHILS % 70.2 % (36.0-66.0); PLATELET COUNT, AUTOMATED 277 10^3/uL (150-450); RED BLOOD COUNT 5.24 10^6/uL (4.00-5.40); WHITE BLOOD COUNT 11.6 10^3/uL (4.0-10.0)
[2024-05-28] MEDS: MORPHINE 4 MG/ML 1ML VIAL IV ONE ×2 (13:10→14:15)
[2024-05-28 13:19] LABS: LIPASE 38 U/L (12-53)
[2024-05-28] MEDS ORDERED: ISOVUE-370 76% 100ML VIAL As Ordered ONE (13:20)
[2024-05-28 13:21] LABS: ALBUMIN 3.7 G/DL (3.2-5.2); ALKALINE PHOSPHATASE 96 U/L (35-104); ALT/SGPT 26 U/L (7.0-40); AST/SGOT 15 U/L (<34); BILIRUBIN,DIRECT 0.1 MG/DL (<0.4); BILIRUBIN,TOTAL 0.5 MG/DL (0.3-1.2); HCG, SERUM QUALITATIVE NEGATIVE (NEGATIVE); TOTAL PROTEIN 7.5 G/DL (5.7-8.2)
[2024-05-28 15:30] VITALS: BP 114/80; O2SAT 95
== END 2024-05-28 16:16 | disposition home or self-care (01) ==
LOC: M ED 11:56
DX: R16.1 Splenomegaly, not elsewhere classified (principal); E11.9 Type 2 diabetes mellitus without complications; F31.9 Bipolar disorder, unspecified; G43.909 Migraine, unspecified, not intractable, without status migrainosus; Z79.899 Other long term (current) drug therapy; Z88.8 Allergy status to other drugs, medicaments and biological substances; Z91.02 Food additives allergy status
CPT/HCPCS: 74177; 80047; 80076; 81001; 83690; 84703; 85025; 96374; 96376; 99284; Q9967

== ENCOUNTER 2024-06-01 13:49 | Emergency (ER) | payer MEDICARE, MEDICAID ==
[~2024-06-01] VITALS: Ht 170.2 cm; Wt 132.9 kg
[2024-06-01 13:54] VITALS: BP 145/85; TEMP 97.3; O2SAT 97
== END 2024-06-01 14:50 | disposition left against medical advice (07) ==
LOC: M ED 13:49
DX: Z53.21 Procedure and treatment not carried out due to patient leaving prior to being seen by health care provider (principal)

== ENCOUNTER → 2024-06-01 | Outpatient (REF) | payer MEDICARE, MEDICAID ==
[~2024-06-01] MED LIST changes: +LURA40TA2; +VALA1TAB5
== END ==
LOC: M SFHCPLAZ 12:40
PROVIDERS: ATTEND Nurse Practitioner Family
DX: R16.1 Splenomegaly, not elsewhere classified (principal)

== ENCOUNTER → 2024-06-01 | Outpatient (CLI) | payer MEDICARE, MEDICAID ==
[2024-06-01 13:43] LABS: BASO # 0.1 10^3/uL (0.0-0.2); BASO % 0.6 % (0.0-1.0); EOS # 0.1 10^3/uL (0.0-0.5); EOS % 0.8 % (0.0-3.0); HEMATOCRIT 40.7 % (36.0-47.0); HEMOGLOBIN 12.8 g/dl (12.0-15.5); LYMPH # 2.2 10^3/uL (1.5-5.0); LYMPH % 20.4 % (24.0-44.0); MEAN CORPUSCULAR HEMOGLOBIN 25.5 pg (27.0-33.0); MEAN CORPUSCULAR HGB CONC 31.4 g/dl (32.0-36.5); MEAN CORPUSCULAR VOLUME 81.2 fl (80.0-96.0); MONO # 0.5 10^3/uL (0.0-0.8); MONO % 5.1 % (2.0-8.0); NEUTROPHILS # 7.7 10^3/uL (1.5-8.5); NEUTROPHILS % 72.4 % (36.0-66.0); PLATELET COUNT, AUTOMATED 286 10^3/uL (150-450); RED BLOOD COUNT 5.01 10^6/uL (4.00-5.40); WHITE BLOOD COUNT 10.6 10^3/uL (4.0-10.0)
[2024-06-01 20:48] LABS: MONO REFLEX EBV COMP NEGATIVE (NEGATIVE)
== END ==
LOC: M PLALAB 09:00
PROVIDERS: ATTEND Nurse Practitioner Family
DX: R16.1 Splenomegaly, not elsewhere classified (principal)

== ENCOUNTER → 2024-07-14 | Outpatient (CLI) | payer MEDICARE, MEDICAID ==
[~2024-07-14] MED LIST changes: +MAGN250T7 PO; +MULT1TAB16 PO; +PROHANCE 279.3MG/ML 15ML VIAL As Ordered ONE; +PROHANCE 279.3MG/ML 5ML VIAL As Ordered ONE; +SERTRALINE
== END ==
LOC: M RAD 08:10
PROVIDERS: ATTEND Internal Medicine Medical Oncology
DX: R16.2 Hepatomegaly with splenomegaly, not elsewhere classified (principal); D18.03 Hemangioma of intra-abdominal structures; E11.65 Type 2 diabetes mellitus with hyperglycemia
CPT/HCPCS: 36415; 74183; 80053; 80061; 82043; 83036; A9576

== ENCOUNTER → 2024-07-14 | Outpatient (CLI) | payer MEDICARE, MEDICAID ==
[~2024-07-14] MED LIST changes: -PROHANCE 279.3MG/ML 15ML VIAL As Ordered ONE; -PROHANCE 279.3MG/ML 5ML VIAL As Ordered ONE
[2024-07-14 09:15] LABS: CREATININE, URINE 177.3 MG/DL; MAU/CREAT RATIO 2.8 MCG/MG (0.0-30.0)
[2024-07-14 09:15] LABS: ALBUMIN 3.5 G/DL (3.2-5.2); ALKALINE PHOSPHATASE 74 U/L (35-104); ALT/SGPT 46 U/L (7.0-40); AST/SGOT 30 U/L (<34); BILIRUBIN,TOTAL 0.4 MG/DL (0.3-1.2); BLOOD UREA NITROGEN 11 MG/DL (9-23); CALCIUM LEVEL 8.8 MG/DL (8.5-10.1); CARBON DIOXIDE LEVEL 27 MMOL/L (20-31); CHLORIDE LEVEL 106 MMOL/L (98-107); CHOLESTEROL LEVEL 137 MG/DL (<200); CHOLESTEROL RISK RATIO 3.89 (<5); CREATININE FOR GFR 0.84 MG/DL (0.55-1.30); GLOMERULAR FILTRATION RATE > 60.0 (>58); GLUCOSE, FASTING 110 MG/DL (60-100); HDL CHOLESTEROL 35.2 MG/DL (>40); LDL CHOLESTEROL 78.8 MG/DL (<100); NON-HDL-C 101.8 MG/DL; POTASSIUM SERUM 4.2 MMOL/L (3.5-5.1); SODIUM LEVEL 142 MMOL/L (136-145); TOTAL PROTEIN 6.9 G/DL (5.7-8.2); TRIGLYCERIDES LEVEL 115 MG/DL (<150)
[2024-07-14 09:31] LABS: HEMOGLOBIN A1c 5.7 % (4.0-6.0)
== END ==
LOC: M LAB 08:13
PROVIDERS: ATTEND Nurse Practitioner Family
DX: E11.65 Type 2 diabetes mellitus with hyperglycemia (principal)

== ENCOUNTER 2024-08-27 07:51 | Emergency (ER) | payer MEDICARE, MEDICAID ==
[~2024-08-27] VITALS: Ht 170.2 cm; Wt 128.1 kg
[2024-08-27] MEDS ORDERED: FARX1TAB3 (08:02)
[2024-08-27] MEDS ORDERED: ZOLO100T PO (08:02)
[2024-08-27] MEDS ORDERED: LISI10TA22 (08:02)
[2024-08-27] MEDS: methocarbamoL 500 MG TAB PO ONE (08:51)
[2024-08-27] MEDS: ACETAMINOPHEN 500 MG TAB PO ONE (09:52)
[2024-08-27] MEDS: KETOROLAC 30 MG/ML 1ML VIAL IM ONE (10:13)
[2024-08-27 10:21] VITALS: BP 126/78; TEMP 97.5; O2SAT 96
== END 2024-08-27 10:23 | disposition home or self-care (01) ==
LOC: M ED 07:51
DX: M75.31 Calcific tendinitis of right shoulder (principal); E11.9 Type 2 diabetes mellitus without complications; I10 Essential (primary) hypertension; K58.9 Irritable bowel syndrome, unspecified; F32.A Depression, unspecified; F42.9 Obsessive-compulsive disorder, unspecified; Z79.4 Long term (current) use of insulin; Z79.899 Other long term (current) drug therapy; Z88.8 Allergy status to other drugs, medicaments and biological substances; Z91.02 Food additives allergy status
CPT/HCPCS: 73030; 93971; 96372; 99283; J1885

== ENCOUNTER → 2025-02-20 | Outpatient (CLI) | payer MEDICARE, MEDICAID ==
[~2025-02-20] MED LIST changes: -DEPA250T32 PO; +DIVA-65 PO; +FARX1TAB3; -FLOM0.4C39 PO; -IBUP-1022 PO; +IBUP600T42 PO; +LAMO-18 PO; -LAMO25TA4 PO; +LISI10TA22; +TAMS-18 PO; +TOPI-256 PO; -TOPI25TA10 PO
[2025-02-20 18:00] LABS: ALT/SGPT 61 U/L (7.0-40); AST/SGOT 43 U/L (<34); CALCIUM LEVEL 9.9 MG/DL (8.5-10.1); CARBON DIOXIDE LEVEL 29 MMOL/L (20-31); CHLORIDE LEVEL 99 MMOL/L (98-107); CREATININE FOR GFR 0.75 MG/DL (0.55-1.30); GLOMERULAR FILTRATION RATE > 90.0 (>58); MAGNESIUM LEVEL 1.6 MG/DL (1.8-2.4); POTASSIUM SERUM 4.4 MMOL/L (3.5-5.1); SODIUM LEVEL 139 MMOL/L (136-145)
== END ==
LOC: M PLALAB 13:58
PROVIDERS: ATTEND Nurse Practitioner Family
DX: R10.9 Unspecified abdominal pain (principal)

== ENCOUNTER → 2025-04-07 | Outpatient (CLI) | payer MEDICARE, MEDICAID ==
[2025-04-07 10:14] LABS: BASO # 0.1 10^3/uL (0.0-0.2); BASO % 0.9 % (0.0-1.0); EOS # 0.4 10^3/uL (0.0-0.5); EOS % 4.3 % (0.0-3.0); LYMPH # 1.9 10^3/uL (1.5-5.0); LYMPH % 22.7 % (24.0-44.0); MONO # 0.5 10^3/uL (0.0-0.8); MONO % 5.5 % (2.0-8.0); NEUTROPHILS # 5.4 10^3/uL (1.5-8.5); NEUTROPHILS % 66.4 % (36.0-66.0); PLATELET COUNT, AUTOMATED 268 10^3/uL (150-450)
[2025-04-07 10:36] LABS: ALT/SGPT 47 U/L (7.0-40); AST/SGOT 27 U/L (<34); CALCIUM LEVEL 9.0 MG/DL (8.5-10.1); CARBON DIOXIDE LEVEL 25 MMOL/L (20-31); CHLORIDE LEVEL 104 MMOL/L (98-107); CREATININE FOR GFR 0.81 MG/DL (0.55-1.30); GLOMERULAR FILTRATION RATE > 90.0 (>58); POTASSIUM SERUM 4.4 MMOL/L (3.5-5.1); SODIUM LEVEL 141 MMOL/L (136-145)
== END ==
LOC: M LAB 09:35
PROVIDERS: ATTEND Internal Medicine Medical Oncology
DX: R16.2 Hepatomegaly with splenomegaly, not elsewhere classified (principal)

== ENCOUNTER → 2025-04-10 | Outpatient (CLI) | payer MEDICARE, MEDICAID ==
[2025-04-10 16:13] LABS: ESTIMATED AVERAGE GLUCOSE 131.0 MG/DL (60-110)
== END ==
LOC: M PLALAB 11:36
PROVIDERS: ATTEND Nurse Practitioner Family
DX: E83.42 Hypomagnesemia (principal); E11.65 Type 2 diabetes mellitus with hyperglycemia

== ENCOUNTER → 2025-05-24 | Outpatient (CLI) | payer MEDICARE, MEDICAID ==
[~2025-05-24] MED LIST changes: -LABE100T6 PO; +LABE100T91 PO
== END ==
LOC: M RAD 09:18
PROVIDERS: ATTEND Student in an Organized Health Care Education/Training Program
DX: K76.0 Fatty (change of) liver, not elsewhere classified (principal); R19.7 Diarrhea, unspecified; R11.2 Nausea with vomiting, unspecified

== ENCOUNTER → 2025-05-25 | Outpatient (REF) | payer MEDICARE, MEDICAID ==
[2025-05-31 18:28] LABS: PANCREATIC ELASTASE STOOL > 800 mcg/g (>200)
[2025-06-02 02:07] LABS: CALPROTECTIN STOOL 7 mcg/g (<50)
== END ==
LOC: M LAB REF 11:35
DX: R19.7 Diarrhea, unspecified (principal); R11.2 Nausea with vomiting, unspecified; K76.0 Fatty (change of) liver, not elsewhere classified